=== PATIENT | female | born 1980 | race Caucasian/White ===

== ENCOUNTER → 2019-09-30 16:50 | Outpatient (CLI) | payer OTHER, SELFPAY ==
--- NOTE | ~2019-09-30 | XR_ITS ---
EXAMINATION: XR tibia fibula RT 2V INDICATION: Right leg pain TECHNIQUE: Two views of the right tibia and fibula are obtained. COMPARISON: 09/04/2013 FINDINGS: There is no fracture, dislocation, or subluxation. The bones and joint spaces are normal. T here is mild medial soft tissue swelling adjacent to the distal tibia. IMPRESSION: 1. No acute osseous abnormality. Reviewed, dictated and finalized at location A.
== END ==
PROVIDERS: PCP Family Medicine; Visit Provider Nurse Practitioner Family
DX: M79.606 Pain in leg, unspecified (principal)
CPT/HCPCS: 73590

== ENCOUNTER 2019-10-06 11:10 | Outpatient (CLI) | payer OTHER, SELFPAY ==
--- NOTE | ~2019-10-06 | US_ITS ---
EXAMINATION: US venous doppler LE RT EXAM DATE: 10/06/2019 11:44 INDICATION: Right leg pain, contusion. Hit with softball 2 weeks ago. TECHNIQUE: Multiple grayscale, color flow and Doppler images of the right lower extremity deep venous system were obtained and reviewed. There is no prior study for comparison. FINDINGS: The right common femoral, femoral and profunda veins demonstrate normal color flow, respira tory variation, augmentation and compressibility. Compressibility, color flow confirmed within the r ight popliteal, posterior tibial, peroneal, and greater saphenous veins. Mild heterogeneity, with small amount of uncontained appearing fluid in the area of concern, likely s mall hematoma seroma. IMPRESSION: 1. No right lower extremity deep venous thrombosis. 2. Small hematoma seroma. Reviewed, dictated and finalized at location A.
== END 2019-10-06 11:11 | disposition home or self-care (01) ==
LOC: ANHIMG 11:11
PROVIDERS: PCP Family Medicine; Visit Provider Nurse Practitioner Family
DX: S80.11XA Contusion of right lower leg, initial encounter (principal); X58.XXXA Exposure to other specified factors, initial encounter; R60.9 Edema, unspecified
CPT/HCPCS: 93971

== ENCOUNTER 2019-11-19 11:13 | Outpatient (CLI) | payer OTHER, SELFPAY ==
--- NOTE | ~2019-11-19 | XR_ITS ---
XR tibia fibula RT 2V DATE: 11/19/2019 11:44 INDICATION: Lower leg pain. Distal medial lower leg wound. TECHNIQUE: AP and lateral views COMPARISON: None FINDINGS: Normal alignment at the knee and ankle joints. Plantar calcaneal enthesopathy. No fracture, dislocation, periosteal reaction or bone destruction of the tibia or fibula is detected. IMPRESSION: No significant abnormality of the tibia or fibula Plantar calcaneal enthesopathy Reviewed, dictated and finalized at location A.
[2019-11-19 12:14] LABS: Hematocrit 41.8 % (37.0-47.0); Hemoglobin 13.1 g/dL (12.0-15.0); Mean Corpuscular HGB Conc 31.3 g/dl (32-36); Mean Corpuscular Hemoglobin 27.5 pg (26-34); Mean Corpuscular Volume 87.8 fl (80-100); Mean Platelet Volume 10.7 fl (7.4-10.4); Platelet Count Result 213 k/mm3 (150-375); Red Blood Count 4.76 M/mm3 (4.2-5.4); Red Cell Distribution Width 14.4 % (11.5-14.5)
[2019-11-19 12:26] LABS: Anion Gap 6 mmol/L (8-16); Blood Urea Nitrogen 11 mg/dL (7-17); Calcium 8.7 mg/dL (8.4-10.2); Carbon Dioxide 26 mmol/L (22-30); Chloride 105 mmol/L (98-107); Estimated Glomerular Filt Rate > 60; Glucose 100 mg/dL (65-105); Potassium 4.2 mmol/L (3.4-5.0); Sodium 137 mmol/L (137-145)
== END 2019-11-19 11:14 | disposition home or self-care (01) ==
LOC: ANHIMG 11:17
PROVIDERS: PCP Family Medicine; Visit Provider Nurse Practitioner Family
DX: L03.90 Cellulitis, unspecified (principal); L98.499 Non-pressure chronic ulcer of skin of other sites with unspecified severity; M79.669 Pain in unspecified lower leg; M77.31 Calcaneal spur, right foot
CPT/HCPCS: 36415; 73590; 80048; 85027

== ENCOUNTER 2019-12-25 15:29 | Outpatient (CLI) | payer OTHER, SELFPAY ==
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
[2020-01-07 19:39] VITALS: BMI 56.6
== END 2019-12-25 15:30 | disposition home or self-care (01) ==
LOC: ANHCSM 15:30
PROVIDERS: PCP Family Medicine; Visit Provider Family Medicine
DX: G47.10 Hypersomnia, unspecified (principal)
CPT/HCPCS: 95800

== ENCOUNTER 2020-02-08 08:20 | Outpatient (CLI) | payer OTHER, SELFPAY ==
--- NOTE | ~2020-02-08 | US_ITS ---
EXAMINATION: US arterial ankle brachial ind DATE: 02/08/2020 09:40 INDICATION: Unspecified open wound, right lower leg, sequela. TECHNIQUE: Segmental pressures and plethysmographic and Doppler waveforms of the brachial and lower e xtremity arteries were obtained. COMPARISON: None. FINDINGS: Right brachial artery pressure was 146/87. Left brachial artery pressure was 136/96. These values are concordant (normal difference <= 30 mmHg). The right ankle-brachial index (JUAN MIGUEL) is 1.12 (normal >= 0.9-1.0). The right great toe-brachial index (TBI) is 1.04 (normal >= 0.65). Arterial Doppler waveforms are at least biphasic at the ankle. The left JUAN MIGUEL is 1.10. The left TBI is 1.19. Arterial Doppler waveforms are at least biphasic at the a nkle. IMPRESSION: 1. No significant arterial occlusive disease. Reviewed, dictated and finalized at location A. 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
== END 2020-02-08 08:21 | disposition home or self-care (01) ==
LOC: ANHIMG 08:25
PROVIDERS: PCP Family Medicine; Visit Provider Nurse Practitioner Family
DX: S81.801A Unspecified open wound, right lower leg, initial encounter (principal); X58.XXXA Exposure to other specified factors, initial encounter; L97.911 Non-pressure chronic ulcer of unspecified part of right lower leg limited to breakdown of skin; L98.499 Non-pressure chronic ulcer of skin of other sites with unspecified severity
CPT/HCPCS: 93922

== ENCOUNTER 2020-02-23 02:24 | Outpatient (CLI) | payer OTHER, SELFPAY ==
[2020-02-23 22:42] LABS: SARS-CoV-2 RNA PCR Negative
== END 2020-02-23 02:25 | disposition home or self-care (01) ==
LOC: ANHCOVIDDT 02:25
PROVIDERS: PCP Family Medicine; Visit Provider Internal Medicine Critical Care Medicine
DX: R68.89 Other general symptoms and signs (principal); Z20.828 Contact with and (suspected) exposure to other viral communicable diseases
CPT/HCPCS: 87635; C9803; U0003

== ENCOUNTER 2020-02-24 07:42 | Outpatient (RCR) | payer OTHER, SELFPAY ==
[2019-11-26 09:00] VITALS: BMI 124.9
== END 2020-02-24 23:59 | disposition home or self-care (01) ==
LOC: ANHWOC 07:42
PROVIDERS: PCP Family Medicine; Visit Provider Nurse Practitioner Family
DX: L98.499 Non-pressure chronic ulcer of skin of other sites with unspecified severity (principal)
CPT/HCPCS: 99212; 99213; A9270; G0463

== ENCOUNTER 2020-02-25 08:28 | Outpatient (CLI) | payer OTHER, SELFPAY ==
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
[2020-03-21 14:29] VITALS: BMI 56.6
--- NOTE | 2020-03-21 14:29 | WPDSLEEPSTUD ---
Sleep Study Date of Study: 02/26/20 Ordering Provider: Taylor Corral MD Interpreting Physician: Dianna Sandoval MD Sleep Study Type: Multiple Sleep Latency Test Height: 1.63 m Weight: 149.685 kg Body Mass Index: 56.6 Neck Circumference: 45.72 cm [place]: 14 Reason for Sleep Study Excessive daytime sleepiness Sleep History This patient had a negative home sleep test in Oct and a normal nocturnal polysomnogram the night before this MSLT. She had 405 minutes of sleep which meets the minimum criteria for 6 hours of sleep prior to an MSLT. 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 Migraine Obesity Trigeminal neuralgia Vaginal delivery Surgical History Surgical History Status post tonsillectomy Family History Family History Grandparent Family history of endocrine disorder Family history of malignant neoplasm of breast Family history of coronary artery disease Diabetes mellitus Hypertension Cerebrovascular accident Father Hypertension Family history of coronary artery disease Mother Family history of lung cancer Social History Social History Smoking status: Never smoker Second hand tobacco smoke exposure: No Alcohol intake: current Gender identity (if verbalized by the patient): Female Medications Home Medications Medication Instructions Recorded Confirmed Type alprazolam 0.25 mg tablet 0.25 mg PO TID #90 tablet 02/02/19 03/09/20 Rx albuterol sulfate 90 mcg/actuation 1 inhalation INHALATION Q4H 02/04/19 03/09/20 History aerosol inhaler baclofen 20 mg tablet 20 mg PO DAILY 02/04/19 03/09/20 History gabapentin 800 mg tablet 800 mg PO TID 02/04/19 03/09/20 History duloxetine 30 mg capsule,delayed 90 mg PO DAILY cap 02/09/19 03/09/20 History release cholecalciferol (vitamin D3) 125 5,000 unit PO DAILY #30 cap 02/12/19 03/09/20 Rx mcg (5,000 unit) capsule topiramate 25 mg tablet 25 mg PO TID tablet 04/01/19 03/09/20 History apixaban 5 mg tablet 5 mg PO BID #60 tablet 05/04/19 03/09/20 Rx mupirocin 2 % topical ointment 1 applic TOPICAL TID #30 gm 11/09/19 03/09/20 Rx naltrexone 8 mg-bupropion 90 mg 2 tablet PO BID #120 tablet 03/28/20 Rx tablet,extended release Sleep Procedure This test was performed using the [employer] multiple channel system including EOG, EEG, submental EMG, EKG, and video monitoring was also performed. The study was scored using [facility] guidelines. Sleep Architecture 5 naps were given. Nap 1 start time 6:41 a.m. Time in bed: 19 min 34 seconds. Sleep onset at 4 min 10 seconds. No REM occurred. Nap 2 start time: 8:42 a.m. Time in bed: 19 min 12 seconds. Sleep onset 3 min 42 seconds. No REM occurred. Nap 3 onset 10:43 a.m. Time in bed: 17 min 50 seconds. Sleep onset 2 min 24 seconds. No REM occurred. Nap 4 onset 12:43 a.m. Time in bed 19 min 23 seconds. Sleep onset 3 min 56 seconds. No REM occurred. Nap 5 onset 2:45 p.m. Time in bed: 26 min 33 seconds. Sleep onset 10 min 58 seconds. No REM occurred. The patient reported sleeping on naps 2, 3 and 4. She reported dreaming on naps 2 and 4. Respiratory Analysis NA Arousals NA Periodic Limb Movements NA Oximetry Data NA Snoring Profile NA Cardiac Profile NA EEG Profile NA Assessment and Plan Assessment and Plan (1) Hypersomnolence: Onset Date: ~12/2019 Code(s): G47.10 - Hypersomnia, unspecified Status: Acute Assessment and Plan: This Multiple Sleep Latency Test on Feb 26, 2020 shows a short sleep latency of 5 minutes and 2 seconds. There were no REM onset naps. This study does not support a diagnosis of narcolepsy due to the absence of REM onset n
[2020-04-11 10:38] VITALS: BMI 56.6
== END 2020-02-25 08:29 | disposition home or self-care (01) ==
LOC: ANHCSM 08:33
PROVIDERS: PCP Family Medicine; Visit Provider Family Medicine
DX: G47.10 Hypersomnia, unspecified (principal); G47.00 Insomnia, unspecified
CPT/HCPCS: 95805; 95810

== ENCOUNTER 2020-03-09 10:05 | Outpatient (CLI) | payer OTHER, SELFPAY ==
[2020-03-09 11:00] LABS: Basophils Absolute Auto 0.1 K/mm3 (0.0-0.1); Basophils Percent Auto 0.9 % (0.2-1.2); Eosinophils Absolute Auto 0.1 K/mm3 (0-0.3); Eosinophils Percent Auto 1.7 % (0-4.4); Hematocrit 45.1 % (37.0-47.0); Hemoglobin 13.7 g/dL (12.0-15.0); Immature Granulocyte Absolute 0.01 K/mm3 (0.00-0.031); Immature Granulocyte Percent A 0.1 % (0-0.5); Lymphocytes Absolute Auto 1.97 K/mm3 (0.9-3.2); Lymphocytes Percent Auto 28.1 % (18.3-44.2); Mean Corpuscular HGB Conc 30.4 g/dl (32-36); Mean Corpuscular Hemoglobin 26.9 pg (26-34); Mean Corpuscular Volume 88.6 fl (80-100); Mean Platelet Volume 10.2 fl (7.4-10.4); Monocytes Absolute Auto 0.4 K/mm3 (0.1-0.6); Monocytes Percent Auto 5.6 % (2.6-8.5); Neutrophils Absolute Auto 4.5 K/mm3 (1.3-6.7); Neutrophils Percent Auto 63.6 % (45.5-73.1); Platelet Count Result 207 k/mm3 (150-375); Red Blood Count 5.09 M/mm3 (4.2-5.4)
[2020-03-09 11:49] LABS: Vitamin D 25 Hydroxy 30.4 ng/mL
== END 2020-03-09 10:06 | disposition home or self-care (01) ==
PROVIDERS: PCP Family Medicine; Visit Provider Nurse Practitioner Family
DX: E55.9 Vitamin D deficiency, unspecified (principal); R53.83 Other fatigue
CPT/HCPCS: 36415; 82306; 84443; 85025; 99212; A9270; G0463

== ENCOUNTER 2020-04-21 12:39 | Outpatient (CLI) | payer OTHER, SELFPAY ==
[2020-04-21 13:21] LABS: Alveolar/Arterial O2 Gradient 17.3 mmHg; Base Excess ABG -0.4 mEq/l (+/-2.0); Fractional Inspired Oxygen 21 %; HCO3 ABG 23.7 mEq/l (22.0-26.0); Oxygen Content ABG 18.3 %vol (16.0-22.0); Oxygen Saturation ABG 96.9 % (95.0-100.0); Oxyhemoglobin 95.6 % THb (90.0-100.0); PCO2 ABG 37.1 mmHg (35.0-45.0); PO2 FiO2 Ratio Arterial Blood 4.19 %; Total Hemoglobin 13.6 g/dL (12.0-18.0); pH ABG 7.423 (7.350-7.450)
[2020-04-21 13:22] LABS: Device ROOM AIR; Modified Allen's Test Pass
== END 2020-04-21 12:40 | disposition home or self-care (01) ==
PROVIDERS: Family Provider Family Medicine; PCP Family Medicine; Visit Provider Physician Assistant Medical
DX: G47.10 Hypersomnia, unspecified (principal); E66.01 Morbid (severe) obesity due to excess calories; Z68.43 Body mass index [BMI] 50.0-59.9, adult
CPT/HCPCS: 36600; 82805; 99212; G0463

== ENCOUNTER 2020-05-18 09:58 | Outpatient (RCR) | payer OTHER, SELFPAY ==
[2020-02-25 00:04] VITALS: BMI 124.9
== END 2020-06-07 23:59 | disposition home or self-care (01) ==
LOC: ANHWOC 09:58
PROVIDERS: PCP Family Medicine; Visit Provider Nurse Practitioner Family
DX: L98.499 Non-pressure chronic ulcer of skin of other sites with unspecified severity (principal)
CPT/HCPCS: 99212; A9270; G0463

== ENCOUNTER 2021-02-16 07:30 | Outpatient (RCR) | payer OTHER, SELFPAY ==
[2021-02-16 07:35] VITALS: BP 128/80; PULSE 80; RESP 20; TEMP 36.2; O2SAT 100
[2021-02-16] MEDS: ACETAMINOPHEN 325 MG TABLET 650 MG PO (07:38)
[2021-02-16] MEDS: FAMOTIDINE 20 MG TABLET PO (07:38)
[2021-02-16] MEDS: diphenhydrAMINE HCl CAP 25 MG CAPSULE PO (07:38)
[2021-02-16 09:11] VITALS: BP 111/85
--- NOTE | 2021-02-17 08:43 | PC.NURSE ---
Tried calling Ms Chavira but had to leave a message for her to call us back.
== END 2021-02-16 17:00 ==
LOC: AMCINF 07:30
PROVIDERS: PCP Family Medicine; Visit Provider Internal Medicine Hematology & Oncology
DX: U07.1 COVID-19 (principal); E11.9 Type 2 diabetes mellitus without complications; I10 Essential (primary) hypertension; J44.9 Chronic obstructive pulmonary disease, unspecified
CPT/HCPCS: A9270; M0245; Q0245

== ENCOUNTER → 2021-05-18 16:07 | Outpatient (CLI) | payer OTHER, SELFPAY ==
--- NOTE | ~2021-05-18 | XR_ITS ---
EXAMINATION: XR chest 2V EXAM DATE: 05/18/2021 16:26 INDICATION: R93.89 - Abnormal findings on diagnostic imaging of other... Left-sided chest pain with i nspiration. TECHNIQUE: Frontal and lateral projections of the chest obtained and reviewed. Comparison is made to prior examination from 03/09/2019. FINDINGS: The lungs are clear. There are no pleural effusions. The cardiomediastinal silhouette is within normal limits. There is no pneumothorax suspected. The bones and soft tissues are unremarkab le. IMPRESSION: Normal chest x-ray exam. Reviewed, dictated and finalized at location A. GOUGER IMPRESSION: Normal chest x-ray exam.
== END ==
PROVIDERS: PCP Family Medicine; Visit Provider Nurse Practitioner Family
DX: R93.89 Abnormal findings on diagnostic imaging of other specified body structures (principal)
CPT/HCPCS: 71046

== ENCOUNTER → 2021-07-31 17:21 | Outpatient (CLI) | payer OTHER, SELFPAY ==
--- NOTE | ~2021-07-31 | XR_ITS ---
EXAM: XR hand RT 2V, XR wrist RT w scaphoid DATE: 07/31/2021 17:52 (accession [id number]), 07/31/2021 17:53 (accession [id number]) HISTORY: M25.539 - Pain in unspecified wrist . COMPARISON: None available. FINDINGS: Normal mineralization. No fracture or dislocation. No lytic or blastic lesion. Joint space s are maintained. No erosion or periosteal change. Soft tissues within normal limits. IMPRESSION: Normal right wrist and hand radiograph findings. Reviewed, dictated and finalized at location K. IMPRESSION: Normal right wrist and hand radiograph findings.
== END ==
PROVIDERS: PCP Family Medicine; Visit Provider Nurse Practitioner Family
DX: M25.539 Pain in unspecified wrist (principal)
CPT/HCPCS: 73110; 73120

== ENCOUNTER 2022-01-26 13:38 | Emergency (ER) | payer OTHER, SELFPAY ==
[2022-01-26 13:50] VITALS: BP 131/81; PULSE 97; RESP 20; TEMP 36.4; O2SAT 100
--- NOTE | 2022-01-26 14:45 | ED.URI ---
HPI - URI/Sore Throat General Chief Complaint: Upper Respiratory Infection Stated Complaint: Cough,Congestion,Wheezing Time Seen by Provider: 01/26/22 14:50 Source: patient and RN notes reviewed Mode of arrival: ambulatory Limitations: no limitations History of Present Illness HPI Narrative: 41-year-old female presenting for complaint of cough and chest congestion with wheezing worsening for 5 days. Patient also reports frequent diarrhea over last few days. She is taking Imodium with minimal relief. She denies associated abdominal pain, nausea, vomiting. Denies chest pain, heart racing, sob. Taking otc meds without relief. Endorses sick contacts, dtr positive for flu this week. MD elicited complaint: cough Related Data Home Medications Medication Instructions Recorded Confirmed baclofen 20 mg tablet 20 mg PO TID 02/16/21 05/18/21 duloxetine 30 mg capsule,delayed 30 mg PO DAILY 02/16/21 05/18/21 release duloxetine 60 mg capsule,delayed 60 mg PO DAILY 02/16/21 05/18/21 release erenumab-aooe 140 mg/mL 140 mg subcut MONTHLY 02/16/21 05/18/21 subcutaneous auto-injector (Aimovig Autoinjector) gabapentin 100 mg tablet 100 mg PO TID 02/16/21 05/18/21 gabapentin 800 mg tablet 800 mg PO TID 02/16/21 05/18/21 topiramate 100 mg tablet 100 mg PO HS 02/16/21 05/18/21 topiramate 25 mg tablet 25 mg PO DAILY 02/16/21 05/18/21 Allergies Allergy/AdvReac Type Severity Reaction Status Date / Time gatifloxacin Allergy Mild Unknown Verified 05/18/21 08:55 carbamazepine Allergy Unknown Unknown Verified 05/18/21 08:55 hydroxychloroquine Allergy Unknown Unknown Verified 05/18/21 08:55 Review of Systems Review of Systems: ROS per HPI [facility] Past Medical History Medical History Diabetes Headache History of deep venous thrombosis 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 Migraine Obesity Trigeminal neuralgia Vaginal delivery Surgical History Surgical History Status post tonsillectomy Family History Family History Grandparent Family history of endocrine disorder Family history of malignant neoplasm of breast Family history of coronary artery disease Diabetes mellitus Hypertension Cerebrovascular accident Father Hypertension Family history of coronary artery disease Mother Family history of lung cancer Sibling COVID-19 Social History Social History Second hand tobacco smoke exposure: No Alcohol intake: current Substance use: never Substance use type: does not use 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 Gender identity (if verbalized by the patient): Female Spiritual care concerns: No Exam Narrative: GENERAL: Ill-appearing, nontoxic EYES: PERRLA, conjunctivae clear ENT: Mucous membranes moist. sinus congestion. NECK: Supple. No lymphadenopathy CHEST: Lungs coarse with wheezing No respiratory distress, speaks in full sentences. HEART: Regular rate and rhythm. No murmur heard. SKIN: Warm, dry, no rash. NEURO: Alert and oriented x3. PSYCH: Normal mood and affect Course Course Emergency Course: Patient is aware of diagnosis, understands and agrees to treatment plan. Anticipatory guidance given. Patient agrees to follow-up as directed and is aware of reasons to seek care at the emergency department. Portions of this record may have been created with voice recognition software Level of Care: Express Care Visit Vital Signs Vital signs: Vital Signs Temperature 97.5 F L 01/26/22 13:50 Pulse Rate 97 01/26/22 13:50 Respiratory Rate 20 01/26/22 13:50 Blood Pressure 131/81 01/26/22 13:50 Pulse Oximetry 100 01/26/22 13:50 Oxygen Delivery Room Air 01/26/22 13:50 Temperature 97.5 F L 01/26/22 13:50 Pulse Rate 97
== END 2022-01-26 15:03 | disposition home or self-care (01) ==
PROVIDERS: Emergency Provider Nurse Practitioner Family; PCP Family Medicine
DX: J40 Bronchitis, not specified as acute or chronic (principal); E11.9 Type 2 diabetes mellitus without complications; Z86.718 Personal history of other venous thrombosis and embolism; E66.9 Obesity, unspecified; Z68.43 Body mass index [BMI] 50.0-59.9, adult; Z20.822 Contact with and (suspected) exposure to COVID-19
CPT/HCPCS: 87426; 87804; 99213; C9803; G0463

== ENCOUNTER 2022-01-31 15:11 | Outpatient (CLI) | payer OTHER, SELFPAY ==
--- NOTE | ~2022-01-31 | XR_ITS ---
EXAMINATION: XR chest 2V 01/31/2022 15:31 INDICATION: Cough PROCEDURE: 2 view chest COMPARISON: Comparison to multiple prior studies sequentially, with oldest reviewed study dated 12/09. FINDINGS: The lungs are clear. The cardiomediastinal silhouette is within normal limits. There are no pleural effusions. There is no pneumothorax suspected. IMPRESSION: 1: NO ACUTE CARDIOPULMONARY DISEASE. Reviewed, dictated and finalized at location B. RNAL CONTROLS CONSULTANT
--- NOTE | ~2022-01-31 | US_ITS ---
EXAMINATION:US venous doppler LE BI INDICATION:Right lower extremity pain TECHNIQUE: Multiple grayscale, color flow and Doppler images of the right and left lower extremity de ep venous systems were obtained and reviewed. COMPARISON:No prior studies for comparison. FINDINGS: The common femoral, superficial femoral and popliteal veins demonstrate normal respiratory variation, augmentation and compressibility. Color flow is also seen within the posterior tibial, pe roneal, greater saphenous and profunda veins. IMPRESSION: 1: No lower extremity deep venous thrombosis. Reviewed, dictated and finalized at location B. 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
[2022-01-31 16:18] LABS: Hematocrit 44.4 % (37.0-47.0); Hemoglobin 13.9 g/dL (12.0-15.0); Mean Corpuscular HGB Conc 31.3 g/dl (32-36); Mean Corpuscular Hemoglobin 27.9 pg (26-34); Mean Platelet Volume 10.2 fl (7.4-10.4); Platelet Count Result 251 k/mm3 (150-375); Red Blood Count 4.99 M/mm3 (4.2-5.4); Red Cell Distribution Width 14.4 % (11.5-14.5); White Blood Count 10.8 K/mm3 (4.5-10.0)
[2022-01-31 17:01] LABS: Alanine Aminotransferase 30 U/L (6-35); Albumin Level 4.1 g/dL (3.5-5.1); Alkaline Phosphatase 74 U/L (38-126); Anion Gap 9 mmol/L (8-16); Aspartate Amino Transferase 34 U/L (14-36); Bilirubin,Total 0.2 mg/dL (0.2-1.3); Blood Urea Nitrogen 11 mg/dL (7-17); Calcium 8.8 mg/dL (8.4-10.2); Carbon Dioxide 23 mmol/L (22-30); Chloride 107 mmol/L (98-107); Estimated Glomerular Filt Rate > 60; Glucose 97 mg/dL (65-110); Magnesium 2.1 mg/dL (1.6-2.3); Potassium 4.4 mmol/L (3.4-5.0); Sodium 139 mmol/L (137-145)
== END 2022-01-31 15:12 | disposition home or self-care (01) ==
PROVIDERS: PCP Family Medicine; Visit Provider Nurse Practitioner Family
DX: M79.661 Pain in right lower leg (principal); I10 Essential (primary) hypertension; F41.9 Anxiety disorder, unspecified; F32.9 Major depressive disorder, single episode, unspecified; J40 Bronchitis, not specified as acute or chronic; R05.9 Cough, unspecified
CPT/HCPCS: 36415; 71046; 80053; 82607; 83735; 85027; 85380; 93970

== ENCOUNTER 2022-03-05 12:22 | Outpatient (CLI) | payer OTHER, SELFPAY ==
[2022-03-05 13:03] LABS: Basophils Percent Auto 0.3 % (0.2-1.2); Eosinophils Absolute Auto 0.1 K/mm3 (0-0.3); Eosinophils Percent Auto 0.7 % (0-4.4); Hematocrit 44.1 % (37.0-47.0); Hemoglobin 13.4 g/dL (12.0-15.0); Immature Granulocyte Absolute 0.04 K/mm3 (0.00-0.031); Immature Granulocyte Percent A 0.4 % (0-0.5); Lymphocytes Absolute Auto 2.02 K/mm3 (0.9-3.2); Lymphocytes Percent Auto 17.8 % (18.3-44.2); Mean Corpuscular HGB Conc 30.4 g/dl (32-36); Mean Corpuscular Hemoglobin 27.9 pg (26-34); Mean Corpuscular Volume 91.7 fl (80-100); Mean Platelet Volume 10.4 fl (7.4-10.4); Monocytes Absolute Auto 0.7 K/mm3 (0.1-0.6); Monocytes Percent Auto 6.3 % (2.6-8.5); Neutrophils Absolute Auto 8.5 K/mm3 (1.3-6.7); Neutrophils Percent Auto 74.5 % (45.5-73.1); Platelet Count Result 255 k/mm3 (150-375); Red Blood Count 4.81 M/mm3 (4.2-5.4); Red Cell Distribution Width 15.4 % (11.5-14.5); White Blood Count 11.4 K/mm3 (4.5-10.0)
[2022-03-05 13:09] LABS: Alanine Aminotransferase 21 U/L (6-35); Albumin Level 3.6 g/dL (3.5-5.1); Alkaline Phosphatase 79 U/L (38-126); Anion Gap 4 mmol/L (8-16); Aspartate Amino Transferase 23 U/L (14-36); Bilirubin,Total 0.4 mg/dL (0.2-1.3); Blood Urea Nitrogen 11 mg/dL (7-17); Calcium 8.3 mg/dL (8.4-10.2); Carbon Dioxide 26 mmol/L (22-30); Chloride 107 mmol/L (98-107); Estimated Glomerular Filt Rate > 60; Glucose 93 mg/dL (65-110); Sodium 137 mmol/L (137-145)
== END 2022-03-05 12:23 | disposition home or self-care (01) ==
LOC: ANHLAB 12:25
PROVIDERS: PCP Family Medicine; Visit Provider Nurse Practitioner Family
DX: R19.7 Diarrhea, unspecified (principal)
CPT/HCPCS: 36415; 80053; 85025

== ENCOUNTER 2022-03-06 09:33 | Outpatient (CLI) | payer OTHER, SELFPAY | END 2022-03-06 09:34 | disposition home or self-care (01) | PROVIDERS: PCP Family Medicine; Visit Provider Nurse Practitioner Family | DX: R19.7 Diarrhea, unspecified (principal) | CPT/HCPCS: 87177; 87209 ==

== ENCOUNTER 2022-03-15 11:49 | Outpatient (CLI) | payer OTHER, SELFPAY ==
[2022-03-15 13:13] LABS: Toxigenic C. Diff NEGATIVE (NEGATIVE)
== END 2022-03-15 11:50 | disposition home or self-care (01) ==
PROVIDERS: PCP Family Medicine; Visit Provider Nurse Practitioner Family
DX: R19.7 Diarrhea, unspecified (principal)
CPT/HCPCS: 87045; 87427; 87493

== ENCOUNTER 2022-03-16 11:34 | Outpatient (CLI) | payer OTHER, SELFPAY ==
--- NOTE | ~2022-03-16 | CT_ITS ---
CT Abdomen and Pelvis with contrast. History: Abdominal pain. Spiral CT of the abdomen and pelvis was performed after the administration of intravenous contrast. 1 00 cc of Omnipaque 350 was administered intravenously without complication. Dose reduction technique was used on this scan by utilizing automated exposure control and iterative reconstruction technique. The dose-length product (DLP) was 1510.40 mGy-cm. COMPARISON: 04/04/2006 Findings: Scans through the lung bases demonstrate mild atelectatic change. The liver, spleen, pancreas, gallbladder, adrenals and kidneys are within normal limits. No evidence of aortic aneurysm. No lymphadenopathy is seen. There is no evidence of bowel obstruction. Suggestion of mild diffuse large bowel wall thickening, es pecially of the transverse, descending, and sigmoid colon. No abscess or free air. Images through the pelvis were performed. Urinary bladder unremarkable. IUD in place. No adnexal mass seen. No ascites is seen. Impression: Possible mild infectious/inflammatory colitis, particularly involving the transverse colon, descendin g colon, and sigmoid colon. Correlate clinically. IUD in place. Reviewed, dictated and finalized at location M. LITIES CUSTODIAN Impression: Possible mild infectious/inflammatory colitis, particularly involving the trans verse colon, descending colon, and sigmoid colon. Correlate clinically. IUD in place.
[2022-03-16 12:41] LABS: Basophils Absolute Auto 0.1 K/mm3 (0.0-0.1); Basophils Percent Auto 0.6 % (0.2-1.2); Eosinophils Absolute Auto 0.2 K/mm3 (0-0.3); Eosinophils Percent Auto 1.5 % (0-4.4); Hematocrit 41.1 % (37.0-47.0); Hemoglobin 12.5 g/dL (12.0-15.0); Immature Granulocyte Absolute 0.05 K/mm3 (0.00-0.031); Immature Granulocyte Percent A 0.5 % (0-0.5); Lymphocytes Absolute Auto 1.97 K/mm3 (0.9-3.2); Lymphocytes Percent Auto 19.1 % (18.3-44.2); Mean Corpuscular HGB Conc 30.4 g/dl (32-36); Mean Corpuscular Hemoglobin 27.5 pg (26-34); Mean Corpuscular Volume 90.3 fl (80-100); Monocytes Absolute Auto 0.6 K/mm3 (0.1-0.6); Neutrophils Absolute Auto 7.5 K/mm3 (1.3-6.7); Neutrophils Percent Auto 72.3 % (45.5-73.1); Platelet Count Result 270 k/mm3 (150-375); Red Blood Count 4.55 M/mm3 (4.2-5.4); White Blood Count 10.3 K/mm3 (4.5-10.0)
[2022-03-16 12:50] LABS: Potassium 3.5 mmol/L (3.4-5.0)
[2022-03-16 12:51] LABS: Alanine Aminotransferase 18 U/L (6-35); Albumin Level 3.3 g/dL (3.5-5.1); Alkaline Phosphatase 75 U/L (38-126); Amylase 38 U/L (30-110); Anion Gap 6 mmol/L (8-16); Aspartate Amino Transferase 16 U/L (14-36); Bilirubin,Total 0.2 mg/dL (0.2-1.3); Blood Urea Nitrogen 8 mg/dL (7-17); Carbon Dioxide 26 mmol/L (22-30); Chloride 101 mmol/L (98-107); Estimated Glomerular Filt Rate > 60; Glucose 90 mg/dL (65-110); Lipase 37 U/L (23-300); Sodium 133 mmol/L (137-145)
== END 2022-03-16 11:35 | disposition home or self-care (01) ==
PROVIDERS: PCP Family Medicine; Visit Provider Nurse Practitioner Family
DX: R10.32 Left lower quadrant pain (principal); R19.7 Diarrhea, unspecified; Z97.5 Presence of (intrauterine) contraceptive device
CPT/HCPCS: 36415; 74177; 80053; 82150; 83690; 85025; Q9967

== ENCOUNTER 2022-03-17 10:45 | Inpatient (IN) | payer OTHER, SELFPAY ==
[2022-03-17] VITALS (22 sets, daily range): BP systolic 107–133; BP diastolic 61–84; PULSE 101–134; RESP 12–25; TEMP 35.5–36.7; O2SAT 95–100; BMI 51.9
--- NOTE | ~2022-03-17 | NM_ITS ---
EXAMINATION: NM hepatobiliary wo pharm DATE: 03/23/2022 14:04 INDICATION: Cholelithiasis. Right upper quadrant abdominal pain. COMPARISON: None. TECHNIQUE: 4.5 mCi Tc-99m mebrofenin (Choletec) was administered intravenously. Scintigraphic images of the abdomen were obtained for one hour. At the 1 hour time point, the patient drank 8 oz Ensure, and imaging was continued for 60 minutes. Gallbladder ejection fraction was calculated by the technol ogthelma. FINDINGS: There is normal clearance of radiotracer from the blood pool. There is homogeneous tracer u ptake by the liver. Activity progresses to the bowel and gallbladder. The gallbladder ejection fract ion (GBEF) is 27%. Note that with this technique, normal GBEF >= 33%. IMPRESSION: 1. Minimally decreased compared W ejection fraction which can be seen with gallbladder dysfunction o r chronic cholecystitis in the appropriate clinical setting. Reviewed, dictated and finalized at location A. OR ACCOUNT REPRESENTATIVE IMPRESSION: 1. Minimally decreased compared W ejection fraction which can be seen with gal lbladder dysfunction or chronic cholecystitis in the appropriate clinical setti ng.
--- NOTE | ~2022-03-17 | US_ITS ---
EXAMINATION: US abdomen complete DATE: 03/21/2022 09:19 INDICATION: Abdominal pain. TECHNIQUE: Multiple grayscale and Doppler ultrasound images of the abdomen were obtained. COMPARISON: CT abdomen and pelvis 03/16/2022 FINDINGS: Abdominal aorta is normal in caliber. Inferior vena cava is normal. The visualized portion of the head of the pancreas is normal. The liver is normal without focal lesion. The gallbladder is d istended and contains a gallstone. No gallbladder wall thickening or sonographic Pond sign. The com mon duct is dilated to 9 mm. There is normal flow in main portal vein. The kidneys are normal in size . The spleen is normal in size. IMPRESSION: 1. Cholelithiasis. Gallbladder distention may be secondary to fasting. No gallbladder wall thickening or sonographic Pond sign to suggest acute cholecystitis. 2. Mildly dilated common duct. Reviewed, dictated and finalized at location A. OL COMMUNITY SERVICE OFFICER IMPRESSION: 1. Cholelithiasis. Gallbladder distention may be secondary to fasting. No gallb ladder wall thickening or sonographic Pond sign to suggest acute cholecystiti s. 2. Mildly dilated common duct.
[2022-03-17 11:13] LABS: Basophils Absolute Auto 0.1 K/mm3 (0.0-0.1); Basophils Percent Auto 0.5 % (0.2-1.2); Eosinophils Absolute Auto 0.1 K/mm3 (0-0.3); Eosinophils Percent Auto 0.4 % (0-4.4); Hemoglobin 14.1 g/dL (12.0-15.0); Immature Granulocyte Absolute 0.13 K/mm3 (0.00-0.031); Immature Granulocyte Percent A 0.6 % (0-0.5); Lymphocytes Absolute Auto 1.61 K/mm3 (0.9-3.2); Lymphocytes Percent Auto 7.7 % (18.3-44.2); Mean Corpuscular HGB Conc 30.7 g/dl (32-36); Mean Corpuscular Hemoglobin 27.5 pg (26-34); Mean Corpuscular Volume 89.8 fl (80-100); Monocytes Absolute Auto 1.2 K/mm3 (0.1-0.6); Monocytes Percent Auto 5.9 % (2.6-8.5); Neutrophils Absolute Auto 17.6 K/mm3 (1.3-6.7); Neutrophils Percent Auto 84.9 % (45.5-73.1); Platelet Count Result 345 k/mm3 (150-375); Red Blood Count 5.12 M/mm3 (4.2-5.4); Red Cell Distribution Width 15.2 % (11.5-14.5); White Blood Count 20.8 K/mm3 (4.5-10.0)
[2022-03-17 11:23] LABS: Alanine Aminotransferase 21 U/L (6-35); Albumin Level 3.8 g/dL (3.5-5.1); Alkaline Phosphatase 93 U/L (38-126); Anion Gap 6 mmol/L (8-16); Aspartate Amino Transferase 21 U/L (14-36); Bilirubin,Total 0.3 mg/dL (0.2-1.3); Blood Urea Nitrogen 5 mg/dL (7-17); Calcium 8.5 mg/dL (8.4-10.2); Carbon Dioxide 28 mmol/L (22-30); Chloride 104 mmol/L (98-107); Estimated CRCL calculation 96 ml/min; Estimated Glomerular Filt Rate > 60; Glucose 153 mg/dL (65-110); Lipase 25 U/L (23-300); Potassium 3.7 mmol/L (3.4-5.0); Sodium 138 mmol/L (137-145)
--- NOTE | 2022-03-17 11:31 | ECG_ITS ---
Measurements Intervals [place] Rate: 111 P: 41 [place]: 141 QRS: 40 QRSD: 89 T: 29 QT: 301 QTc: 409 Interpretive Statements SINUS TACHYCARDIA POSSIBLE LEFT ATRIAL ENLARGEMENT MINIMAL Q WAVES- INFERIOR LEADS ABNORMAL ECG NO PREVIOUS ECG AVAILABLE FOR COMPARISON Electronically Signed On 03-17-2022 16:31:41 INTERACTIVE PRODUCER by Natan Huggins D.O.
[2022-03-17] MEDS: LACTATED RINGERS 1,000 ML 999 ML IV CONT ×3 (11:43→13:41)
[2022-03-17 11:55] LABS: Add Urine Microscopic? YES; Appearance Urine Clear (Clear); Bilirubin Urine 1+ (Negative); Blood Urine 2+ (Negative); Color Urine Yellow (Yellow); Glucose Urine UA Negative (Negative); Ketones Urine Trace mg/dL (Negative); Leukocyte Esterase Ur Negative LEU/UL (Negative); Nitrate Urine Negative (Negative); Protein Urine Negative (Negative); Specific Grav Ur 1.025 (1.001-1.035); Urobilinogen Urine 0.2 mg/dL (<2.0); pH Urine 5.5 (5.0-9.0)
[2022-03-17 11:58] LABS: Mucus Urine Few /lpf; Squamous Epithelial Cell Urine Few /hpf (Few)
[2022-03-17 12:03] LABS: Lactic Acid Reflex 1.2 mmol/L (0.7-2.0)
--- NOTE | 2022-03-17 12:12 | ED.ABDPAIN ---
HPI - Abdominal Pain General Chief Complaint: Abdominal Pain <MIRELLA Chambers Last Filed: 03/17/22 16:45> Stated Complaint: stomach pain, diarrhea x 2 weeks (here yesterday) <Leana Chinchilla PA-C - Last Filed: 03/17/22 16:45> Time Seen by Provider: 03/17/22 11:58 <Leana Chinchilla PA-C - Last Filed: 03/17/22 16:45> History of Present Illness HPI narrative: Patient is a 41-year-old female here for evaluation of diarrhea over the past 3 months. Patient states that she has been experiencing this and has been following with her primary care doctor. She has had stool studies that have been negative for C. difficile, ova or parasites, c. jejuni or shiga toxin. She has completed several rounds of antibiotics without improvement of her symptoms. Yesterday she had a CT scan that showed diffuse enteritis. She presents today due to continued and worsening symptoms, states that she had a fever last evening, had about 18 episodes of watery diarrhea, and diffuse abdominal pain. <MIRELLA Chambers Last Filed: 03/17/22 16:45> Related Data Home Medications: Home Medications Medication Instructions Recorded Confirmed baclofen 20 mg tablet 20 mg PO ,,02/16/21 03/17/22 duloxetine 60 mg capsule,delayed 60 mg PO DAILY 02/16/21 03/17/22 release erenumab-aooe 140 mg/mL 140 mg subcut MONTHLY 02/16/21 03/17/22 subcutaneous auto-injector (Aimovig Autoinjector) gabapentin 100 mg tablet 100 mg PO ,,02/16/21 03/17/22 gabapentin 800 mg tablet 800 mg PO ,,02/16/21 03/17/22 topiramate 100 mg tablet 100 mg PO HS 02/16/21 03/17/22 topiramate 25 mg tablet 25 mg PO DAILY 02/16/21 03/17/22 duloxetine 30 mg capsule,delayed 30 mg PO DAILY 02/26/22 03/17/22 release (Cymbalta) <MIRELLA Chambers Last Filed: 03/17/22 16:45> Allergies/Adverse Reactions: Allergies Allergy/AdvReac Type Severity Reaction Status Date / Time carbamazepine AdvReac Mild Itching Verified 03/17/22 15:35 gatifloxacin AdvReac Mild Itching Verified 03/17/22 15:35 hydroxychloroquine AdvReac Mild Itching Verified 03/17/22 15:35 <Leana Chinchilla PA-C - Last Filed: 03/17/22 16:45> Review of Systems Review of Systems: Gen: Reports fevers. Eyes: Denies eye pain or visual change ENT: Denies congestion Respiratory: Denies shortness of breath or cough CV: Denies chest pain or palpitations GI: Reports abdominal pain and diarrhea. 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 Hx of gestational diabetes mellitus, not currently Insulin resistance Migraine Obesity Trigeminal neuralgia Vaginal delivery <Leana Chinchilla PA-C - Last Filed: 03/17/22 16:45> Surgical History Surgical History: Surgical History Status post tonsillectomy <Leana Chinchilla PA-C - Last Filed: 03/17/22 16:45> Family History Family History: Family History Grandparent Family history of endocrine disorder Family history of malignant neoplasm of breast Family history of coronary artery disease Diabetes mellitus Hypertension Cerebrovascular accident Father Hypertension Family history of coronary artery disease Mother Family history of lung cancer Sibling COVID-19 <Leana Chinchilla PA-C - Last Filed: 03/17/22 16:45> Social History Social History: Social History (Updated
[2022-03-17 14:21] LABS: Thyroid Stimulating Hormone 0.237 uIU/mL (0.465-4.680)
--- NOTE | 2022-03-17 14:23 | PM.IMHP ---
H&P: HPI History of Present Illness Date/Time: 03/17/22 14:23 Chief Complaint: Diarrhea Narrative: This is a 41-year-old female patient who stated that she has been having diarrhea since January. The patient stated that she had been on some strong antibiotics 3 months ago. She has been having diarrhea since. She is followed by her primary care doctor. She recently tested negative for C diff ova and parasites. The patient started taking vancomycin and took the stool specimen and 4 days later. The patient stated every time she eats or drinks something it goes right straight through her and she has diarrhea. Yesterday the CT showed diffuse enteritis. The patient came to the emergency room due to complaints of severe abdominal cramping and at least 18 episodes of watery diarrhea. CT scan of the abdomen and pelvis yesterday shows possible mild infectious/inflammatory colitis, particularly involving the transverse colon, descending colon, and sigmoid colon. GI specialist has been consulted recommend Zosyn. White count is 20.8. She is negative for influenza A/B and COVID. The patient was started on lactated Ringer's, Zosyn, and IV Tylenol. The patient is being admitted to observation status on the date of service of 03/17/2022. Review of Systems Review of Systems: See HPI All systems reviewed & are unremarkable except as noted in HPI and below Constitutional: Constitutional: Reports as per HPI and Reports no additional constitutional complaints Eyes: Eyes: Reports as per HPI and Reports no additional eye complaints ENT: Reports system reviewed and no additional complaints, except as documented and Reports Normal hearing present Cardiovascular: Cardiovascular: Reports no additional cardiovascular complaints Respiratory: Respiratory: Reports no additional respiratory complaints and Reports no additional respiratory complaints Gastrointestinal: Gastrointestinal: Reports as per HPI and Reports no additional gastrointestinal complaints Musculoskeletal: Musculoskeletal: Reports no additional musculoskeletal complaints Integumentary/Breasts: Skin/Breast: Reports system reviewed and no additional complaints, except as docu and Reports as per HPI Neurologic: Reports system reviewed and no additional complaints, except as documented, Reports as per HPI and Reports Normal hearing present Psychiatric: Psychiatric: Reports no additional psychiatric complaints and Reports as per HPI Endocrine: Endocrine: Reports no additional endocrine complaints Hematologic/Lymphatic: Hematologic/Lymphatic: Reports no additional hematologic/lymphatic complaints Allergic/Immunologic: Allergic/Immunologic: Reports no additional allergic/immunologic complaints [facility] Past Medical History Medical History (Updated 01/07/23 @ 19:06 by Ruth Ch NP) Anxiety Headache History of deep venous thrombosis 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 Hx of gestational diabetes mellitus, not currently Insulin resistance Migraine Obesity Rheumatoid arthritis Trigeminal neuralgia Vaginal delivery Surgical History Surgical History Status post tonsillectomy Family History Family History Grandparent Family history of endocrine disorder Family history of malignant neoplasm of breast Family history of coronary artery disease Diabetes mellitus Hypertension Cerebrovascular accident Father Hypertension Family history of coronary artery disease Mother Family history of lung cancer Sibling COVID-19 Social History Social History (Updated 03/17/22 @ 18:40 by Ruth Ch NP) Social History: The patient lives with her and has 2 children. 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 Lifelong nonsmoker. She does not use any drugs or alcohol. Code
[2022-03-17 14:42] LABS: Influenza A QL RT-PCR Negative (Negative); Influenza B QL RT-PCR Negative (Negative); SARS-CoV-2 RNA PCR Negative
[2022-03-17] MEDS: LACTATED RINGERS 1,000 ML 150 ML IV CONT (14:50)
--- NOTE | 2022-03-17 15:25 | ADMGEN ---
This patient, Sarah Chavira, was admitted to 3 Med Surg Room 328-01. Patient/family oriented to hospital policies and general routines including ID bracelet, bed and alarms, visiting hours, pain management, procedures, bathroom and other care routines, personal items, smoking policy, room service/diet, and visiting hours. Information on how to activate the Rapid Response Team has been discussed. Patient/Family are encouraged to report perceived risks to care and to ask questions if they do not understand what they are told or what they should do.
[2022-03-17] MEDS: metroNIDAZOLE 500 MG/ISO 100ML 500 MG/100 ML BAG 100 MG IVPB (15:30)
[2022-03-17 16:21] LABS: T4 Thyroxine 8.21 ug/dL (5.53-11.0)
[2022-03-17] MEDS: TOPIRAMATE 100 MG TABLET PO (21:10)
[2022-03-17] MEDS: GABAPENTIN 400 MG CAPSULE 800 MG PO (21:10)
[2022-03-17] MEDS: GABAPENTIN 100 MG CAPSULE PO (21:10)
[2022-03-17] MEDS: DICYCLOMINE HCL INJ 20 MG/2 ML VIAL IM (21:10)
[2022-03-17] MEDS: BACLOFEN 10 MG TABLET 20 MG PO (21:28)
[2022-03-18] MEDS: LOPERAMIDE HCL 2 MG CAPSULE 4 MG PO (01:46)
[2022-03-18 06:00] VITALS: BP 113/69; PULSE 83; RESP 14; TEMP 35.7; O2SAT 100
[2022-03-18 07:02] LABS: Basophils Absolute Auto 0.1 K/mm3 (0.0-0.1); Basophils Percent Auto 0.6 % (0.2-1.2); Eosinophils Absolute Auto 0.3 K/mm3 (0-0.3); Eosinophils Percent Auto 1.9 % (0-4.4); Hemoglobin 11.2 g/dL (12.0-15.0); Immature Granulocyte Absolute 0.08 K/mm3 (0.00-0.031); Immature Granulocyte Percent A 0.6 % (0-0.5); Lymphocytes Absolute Auto 2.22 K/mm3 (0.9-3.2); Lymphocytes Percent Auto 15.8 % (18.3-44.2); Mean Corpuscular HGB Conc 31.1 g/dl (32-36); Mean Corpuscular Hemoglobin 27.1 pg (26-34); Mean Platelet Volume 10.3 fl (7.4-10.4); Monocytes Absolute Auto 0.8 K/mm3 (0.1-0.6); Monocytes Percent Auto 5.9 % (2.6-8.5); Neutrophils Absolute Auto 10.5 K/mm3 (1.3-6.7); Neutrophils Percent Auto 75.2 % (45.5-73.1); Platelet Count Result 263 k/mm3 (150-375); Red Blood Count 4.14 M/mm3 (4.2-5.4); Red Cell Distribution Width 15.1 % (11.5-14.5)
[2022-03-18 07:14] LABS: Lactic Acid Reflex 0.5 mmol/L (0.7-2.0)
[2022-03-18 07:16] LABS: Alanine Aminotransferase 15 U/L (6-35); Albumin Level 2.9 g/dL (3.5-5.1); Alkaline Phosphatase 75 U/L (38-126); Anion Gap 5 mmol/L (8-16); Aspartate Amino Transferase 14 U/L (14-36); Bilirubin,Total 0.3 mg/dL (0.2-1.3); Blood Urea Nitrogen 4 mg/dL (7-17); Calcium 7.8 mg/dL (8.4-10.2); Carbon Dioxide 24 mmol/L (22-30); Chloride 104 mmol/L (98-107); Estimated CRCL calculation 108 ml/min; Estimated Glomerular Filt Rate > 60; Glucose 118 mg/dL (65-110); Magnesium 2.2 mg/dL (1.6-2.3); Potassium 2.9 mmol/L (3.4-5.0); Sodium 133 mmol/L (137-145)
--- NOTE | 2022-03-18 08:02 | WPDGICN ---
Assessment and Plan Assessment and plan (1) Diarrhea: Code(s): R19.7 - Diarrhea, unspecified Status: Acute Assessment and Plan: I suspect that she has inflammatory bowel disease. C difficile colitis remains a possibility, however she did not have risk factors for that. Unfortunately when she was tested she had already started taking vancomycin. (2) Colitis: Code(s): K52.9 - Noninfective gastroenteritis and colitis, unspecified Status: Acute Assessment and Plan: She was scheduled for colonoscopy to be done tomorrow. I discussed with her the prep I told her that even though she has diarrhea will need to give her some bowel prep because of the likelihood of mucoid thick stool in the ascending colon (3) BMI 50.0-59.9, adult: Code(s): Z68.43 - Body mass index [BMI] 50.0-59.9, adult Status: Acute Assessment and Plan: she actually has lost about 15 lb with the present illness GI Consult Note Consult date/time: 03/18/22 08:02 HPI: Sarah Chavira is a 41 year old female who presented to the emergency room yesterday with intractable diarrhea. Since this all began in January. She also developed a sinus infection at that time. She was placed on antibiotics for the upper respiratory infection, but the diarrhea preceded that by at least a week. She had not been traveling. She was not aware of any other friends or family who were ill. She had been using Imodium without success and was also advised to try Pepto-Bismol. She did have stool cultures done a few days ago which were negative. Apparently the laboratory failed to do her C diff toxin. When it was repeated, she had already started taking vancomycin for about 4 days. She has never had gastrointestinal illnesses in the past. She denies seeing blood her stools. She has watery stool throughout the day and even at night whether she eats or not. She however always has more stools after eating and therefore has cut back on eating to the point that she has lost 15 lb now in the last few weeks. 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 Hx of gestational diabetes mellitus, not currently Insulin resistance Migraine Obesity Rheumatoid arthritis Trigeminal neuralgia Vaginal delivery Surgical History Surgical History Status post tonsillectomy Family History Family History Grandparent Family history of endocrine disorder Family history of malignant neoplasm of breast Family history of coronary artery disease Diabetes mellitus Hypertension Cerebrovascular accident Father Hypertension Family history of coronary artery disease Mother Family history of lung cancer Sibling COVID-19 Social History Social History Social History: The patient lives with her and has 2 children. 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 Lifelong nonsmoker. She does not use any drugs or alcohol. Code status full code Smoking status: Never smoker Second hand tobacco smoke exposure: No Alcohol intake: current Drinks per week: 0 Substance use: never Substance use type: does not use Lack of Transportation: No Lack of Food: Never True Current Housing: I Have Housing Concerned About Future Housing: No Difficulty Paying Gas/Electric Bills: No Difficulty Paying for Meds: No Currently Unemployed: No Education: Bachelor's Degree Difficulty w/ Childcare or Family Care: No Additional occupation/education
[2022-03-18] MEDS: GABAPENTIN 100 MG CAPSULE PO ×3 (09:19→22:04)
[2022-03-18] MEDS: TOPIRAMATE 25 MG TABLET PO (09:20)
[2022-03-18] MEDS: DULoxetine HCL 60 MG CAPSULE.DR PO (09:20)
[2022-03-18] MEDS: DULoxetine HCL 30 MG CAPSULE.DR PO (09:20)
[2022-03-18] MEDS: GABAPENTIN 400 MG CAPSULE 800 MG PO ×3 (09:20→22:04)
[2022-03-18] MEDS: BACLOFEN 10 MG TABLET 20 MG PO ×3 (09:24→22:03)
[2022-03-18] MEDS: POTASSIUM CHLORIDE 20 MEQ PACKET (FOR LIQUID) 40 MEQ PO (09:25)
--- NOTE | 2022-03-18 13:49 | P.PNIM_ITS ---
Progress Note: A&P Assessment and Plan (1) Colitis: Code(s): K52.9 - Noninfective gastroenteritis and colitis, unspecified Status: Acute Assessment and Plan: Patient presented with diarrhea since January to the ER on 03/17/2022. * CT show diffuse enteritis possibly infectious or inflammatory. * Patient had been on recent antibiotic use in January. * the patient had been placed on p.o. vancomycin outpatient and had been on it for days when specimens were obtained for C diff. * Those specimens were negative. The patient stop taking the vancomycin then. * Repeat stool cultures at [facility]. * Patient on IV Zosyn * GI has been consulted and appreciate recommendations * Continue with IV fluids * Analgesics for pain control including scheduled Tylenol * White count on 03/17/2022 was 20.8 * Patient's white count is trending down. * Blood cultures are pending. * Tailor antibiotics to results of cultures. * Colonoscopy scheduled for 03/19/2022 * Will check ESR and CRP (2) History of deep venous thrombosis: Code(s): Z86.718 - Personal history of other venous thrombosis and embolism Status: Acute Assessment and Plan: Patient has history of 3 DVTs * the patient stated she has not been taking her apixaban because of the diarrhea. * Restarted patient's apixaban * Advised continuation after discharge (3) Diarrhea: Code(s): R19.7 - Diarrhea, unspecified Status: Acute Assessment and Plan: * will recheck stool cultures again. * Blood cultures are pending. * GI has been consulted. * continue with analgesics and IV fluids. * patient was started on Zosyn * Patient had been on antibiotic therapy with vancomycin when she had given last stool sample that was negative. (4) Rheumatoid arthritis: Code(s): M06.9 - Rheumatoid arthritis, unspecified Status: Acute Assessment and Plan: Continue with current treatment * continue gabapentin Subjective Date/time seen: 03/18/22 13:49 Interval history: This is a very pleasant 41-year-old female patient who stated that she has been having diarrhea since January. Patient states that she has not noticed any blood in her stool or having dark stools. Patient states that diarrhea has progressively gotten worse and that it is even triggered by a water intake. She has had some nausea associated with the diarrhea but a never any vomiting. She use antidiarrheals in the beginning of the diarrhea starting but they have since stopped working and she has stopped taking them. She has significant lower abdominal cramping and urgency when using the bathroom. Has diarrhea between 12 and 13 times a day. She has had fevers but nothing consistent. States that diarrhea had started with a suspected viral illness in January and diarrhea has never resolved itself since then. Patient does have a sister with Crohn's disease. Review of Systems Review of Systems: All systems reviewed & are unremarkable except as noted in HPI and below Exam Narrative: GENERAL: Comfortable, no acute distress, obese HENMT: moist mucous membranes EYES: EOM intact b/l NECK: no lymphadenopathy RESPIRATORY: clear to auscultation CARDIO: RRR GI: soft, tenderness across the lower abdomen, hyperactive bowel sounds in the lower quadrants SKIN: no rashes EXTREMITIES: no edema, redness or tenderness Objective Data Vital Signs Vital Signs: Vital Signs - 24 hr 03/17/22 14:00 03/17/22 14:15 03/17/22 14:30 Temperat
--- NOTE | 2022-03-18 13:49 | PM.IMPN ---
Progress Note: A&P Assessment and Plan (1) Colitis: Code(s): K52.9 - Noninfective gastroenteritis and colitis, unspecified Status: Acute Assessment and Plan: Patient presented with diarrhea since January to the ER on 03/17/2022. CT show diffuse enteritis possibly infectious or inflammatory. Patient had been on recent antibiotic use in January. the patient had been placed on p.o. vancomycin outpatient and had been on it for days when specimens were obtained for C diff. Those specimens were negative. The patient stop taking the vancomycin then. Repeat stool cultures at [place]. Patient on IV Zosyn GI has been consulted and appreciate recommendations Continue with IV fluids Analgesics for pain control including scheduled Tylenol White count on 03/17/2022 was 20.8 Patient's white count is trending down. Blood cultures are pending. Tailor antibiotics to results of cultures. Colonoscopy scheduled for 03/19/2022 Will check ESR and CRP (2) History of deep venous thrombosis: Code(s): Z86.718 - Personal history of other venous thrombosis and embolism Status: Acute Assessment and Plan: Patient has history of 3 DVTs the patient stated she has not been taking her apixaban because of the diarrhea. Restarted patient's apixaban Advised continuation after discharge (3) Diarrhea: Code(s): R19.7 - Diarrhea, unspecified Status: Acute Assessment and Plan: will recheck stool cultures again. Blood cultures are pending. GI has been consulted. continue with analgesics and IV fluids. patient was started on Zosyn Patient had been on antibiotic therapy with vancomycin when she had given last stool sample that was negative. (4) Rheumatoid arthritis: Code(s): M06.9 - Rheumatoid arthritis, unspecified Status: Acute Assessment and Plan: Continue with current treatment continue gabapentin Subjective Date/time seen: 03/18/22 13:49 Interval history: This is a very pleasant 41-year-old female patient who stated that she has been having diarrhea since January. Patient states that she has not noticed any blood in her stool or having dark stools. Patient states that diarrhea has progressively gotten worse and that it is even triggered by a water intake. She has had some nausea associated with the diarrhea but a never any vomiting. She use antidiarrheals in the beginning of the diarrhea starting but they have since stopped working and she has stopped taking them. She has significant lower abdominal cramping and urgency when using the bathroom. Has diarrhea between 12 and 13 times a day. She has had fevers but nothing consistent. States that diarrhea had started with a suspected viral illness in January and diarrhea has never resolved itself since then. Patient does have a sister with Crohn's disease. Review of Systems Review of Systems: All systems reviewed & are unremarkable except as noted in HPI and below Exam Narrative: GENERAL: Comfortable, no acute distress, obese HENMT: moist mucous membranes EYES: EOM intact b/l NECK: no lymphadenopathy RESPIRATORY: clear to auscultation CARDIO: RRR GI: soft, tenderness across the lower abdomen, hyperactive bowel sounds in the lower quadrants SKIN: no rashes EXTREMITIES: no edema, redness or tenderness Objective Data Vital Signs Vital Signs: Vital Signs - 24 hr 03/17/22 14:00 03/17/22 14:15 03/17/22 14:30 Temperature Pulse Rate Respiratory Rate Blood Pressure Pulse Oximetry 95 97 97 Oxygen Delivery 03/17/22 14:45 03/17/22 15:04 03/17/22 20:00 Temperature Pulse Rate 113 H Respiratory Rate 16 Blood Pressure 122/74 Pulse Oximetry 96 98 Oxygen Delivery Room Air 03/17/22 22:00 03/18/22 06:00 Temperature 96 F L 96.2 F L Pulse Rate 101 H 83 Respiratory Rate 18 14 Blood Pressure 119/67 113/69 Pulse Oximetry 100 100 Oxygen Delivery Intake/Output
[2022-03-18] MEDS: HYDROcodone/acetaminophen (*CRX) 10-325 MG TABLET 1 TAB PO (17:36)
[2022-03-18] MEDS: polyethylene glycoL 3350 238 GM BOTTLE PO (17:37)
[2022-03-18 17:38] VITALS: BP 114/90; PULSE 86; RESP 14; TEMP 36.1; O2SAT 100
[2022-03-18] MEDS: ACETAMINOPHEN 325 MG TABLET 650 MG PO (17:45)
[2022-03-18 22:00] VITALS: BP 110/69; PULSE 64; RESP 17; TEMP 35.6; O2SAT 98
[2022-03-18] MEDS: TOPIRAMATE 100 MG TABLET PO (22:04)
[2022-03-19] VITALS (7 sets, daily range): BP systolic 84–116; BP diastolic 49–75; PULSE 63–83; RESP 14–20; TEMP 36–36.8; O2SAT 97–100; BMI 51.9
[2022-03-19] MEDS: ACETAMINOPHEN 325 MG TABLET 650 MG PO ×2 (00:23→05:08)
[2022-03-19 06:40] LABS: Basophils Absolute Auto 0.1 K/mm3 (0.0-0.1); Eosinophils Absolute Auto 0.4 K/mm3 (0-0.3); Eosinophils Percent Auto 5.6 % (0-4.4); Hematocrit 37.5 % (37.0-47.0); Hemoglobin 11.6 g/dL (12.0-15.0); Immature Granulocyte Absolute 0.05 K/mm3 (0.00-0.031); Immature Granulocyte Percent A 0.7 % (0-0.5); Lymphocytes Absolute Auto 1.66 K/mm3 (0.9-3.2); Lymphocytes Percent Auto 22.6 % (18.3-44.2); Mean Corpuscular HGB Conc 30.9 g/dl (32-36); Mean Corpuscular Hemoglobin 27.2 pg (26-34); Mean Platelet Volume 10.2 fl (7.4-10.4); Monocytes Absolute Auto 0.5 K/mm3 (0.1-0.6); Monocytes Percent Auto 6.5 % (2.6-8.5); Neutrophils Absolute Auto 4.7 K/mm3 (1.3-6.7); Neutrophils Percent Auto 63.6 % (45.5-73.1); Platelet Count Result 294 k/mm3 (150-375); Red Blood Count 4.26 M/mm3 (4.2-5.4); Red Cell Distribution Width 15.1 % (11.5-14.5); White Blood Count 7.3 K/mm3 (4.5-10.0)
[2022-03-19 06:46] LABS: Alanine Aminotransferase 15 U/L (6-35); Albumin Level 3.1 g/dL (3.5-5.1); Alkaline Phosphatase 77 U/L (38-126); Anion Gap 6 mmol/L (8-16); Aspartate Amino Transferase 14 U/L (14-36); Bilirubin,Total 0.3 mg/dL (0.2-1.3); Blood Urea Nitrogen 4 mg/dL (7-17); Calcium 7.9 mg/dL (8.4-10.2); Carbon Dioxide 24 mmol/L (22-30); Chloride 105 mmol/L (98-107); Estimated CRCL calculation 122 ml/min; Estimated Glomerular Filt Rate > 60; Glucose 100 mg/dL (65-110); Potassium 3.2 mmol/L (3.4-5.0); Sodium 135 mmol/L (137-145)
[2022-03-19 06:57] LABS: CRP 14.4 mg/dL (<1.0)
[2022-03-19] MEDS: HYDROcodone/acetaminophen (*CRX) 10-325 MG TABLET 1 TAB PO (07:57)
[2022-03-19] MEDS: BACLOFEN 10 MG TABLET 20 MG PO ×2 (07:58→21:48)
[2022-03-19] MEDS: GABAPENTIN 100 MG CAPSULE PO ×2 (07:58→21:47)
[2022-03-19] MEDS: GABAPENTIN 400 MG CAPSULE 800 MG PO ×2 (07:58→21:48)
[2022-03-19] MEDS: DULoxetine HCL 30 MG CAPSULE.DR PO (07:59)
[2022-03-19] MEDS: DULoxetine HCL 60 MG CAPSULE.DR PO (07:59)
[2022-03-19] MEDS: TOPIRAMATE 25 MG TABLET PO (07:59)
[2022-03-19 08:07] LABS: Erythrocyte Sedimentation Rate 44 mm/hr (0-20)
--- NOTE | 2022-03-19 08:57 | P.PNIM_ITS ---
Progress Note: A&P Assessment and Plan (1) Colitis: Code(s): K52.9 - Noninfective gastroenteritis and colitis, unspecified Status: Acute Assessment and Plan: Patient presented with diarrhea since January to the ER on 03/17/2022. * CT show diffuse enteritis possibly infectious or inflammatory. * Patient had been on recent antibiotic use in January. * the patient had been placed on p.o. vancomycin outpatient and had been on it for days when specimens were obtained for C diff. * Those specimens were negative. The patient stop taking the vancomycin then. * Repeat C diff negative * Patient on IV Zosyn * GI has been consulted and appreciate recommendations * Continue with IV fluids * Analgesics for pain control including scheduled Tylenol * White count on 03/17/2022 was 20.8 * Patient's white count is trending down. * Blood cultures no growth to date * Tailor antibiotics to results of cultures. * Colonoscopy scheduled for 03/19/2022 * ESR 44 * CRP 14.4 * White blood cell count 03/19/2022 stable (2) History of deep venous thrombosis: Code(s): Z86.718 - Personal history of other venous thrombosis and embolism Status: Acute Assessment and Plan: Patient has history of 3 DVTs * the patient stated she has not been taking her apixaban because of the diarrhea. * Restarted patient's apixaban * Advised continuation after discharge (3) Diarrhea: Code(s): R19.7 - Diarrhea, unspecified Status: Acute Assessment and Plan: * will recheck stool cultures again. * Blood cultures are pending. * GI has been consulted. * continue with analgesics and IV fluids. * patient was started on Zosyn * Patient had been on antibiotic therapy with vancomycin when she had given last stool sample that was negative. * Repeat C diff negative (4) Rheumatoid arthritis: Code(s): M06.9 - Rheumatoid arthritis, unspecified Status: Acute Assessment and Plan: Continue with current treatment * continue gabapentin Subjective Date/time seen: 03/19/22 08:57 Interval history: This is a very pleasant 41-year-old female patient who stated that she has been having diarrhea since January. Patient states that she has not noticed any blood in her stool or having dark stools. Patient states that diarrhea has progressively gotten worse and that it is even triggered by a water intake. She has had some nausea associated with the diarrhea but a never any vomiting. She use antidiarrheals in the beginning of the diarrhea starting but they have since stopped working and she has stopped taking them. She has significant lower abdominal cramping and urgency when using the bathroom. Has diarrhea between 12 and 13 times a day. She has had fevers but nothing consistent. States that diarrhea had started with a suspected viral illness in January and diarrhea has never resolved itself since then. Patient does have a sister with Crohn's disease. Today patient is feeling slightly better. She is undergoing colonoscopy today. Has not had any diarrhea this morning but feels as if she needs to use the bathroom. Has had short bouts of nausea but no vomiting. Denies fevers, headaches, shortness of breath, chest pain. No blood in stool reported. Review of Systems Review of Systems: All systems reviewed & are unremarkable except as noted in HPI and below Exam Narrative: GENERAL: Comfortable, no acute distress HENMT: moist mucous membranes EYES: EOM intact b/l NECK: no lymphadenopathy RESPIRATORY: clear to auscultation CARDIO: RRR GI: soft,
--- NOTE | 2022-03-19 08:57 | PM.IMPN ---
Progress Note: A&P Assessment and Plan (1) Colitis: Code(s): K52.9 - Noninfective gastroenteritis and colitis, unspecified Status: Acute Assessment and Plan: Patient presented with diarrhea since January to the ER on 03/17/2022. CT show diffuse enteritis possibly infectious or inflammatory. Patient had been on recent antibiotic use in January. the patient had been placed on p.o. vancomycin outpatient and had been on it for days when specimens were obtained for C diff. Those specimens were negative. The patient stop taking the vancomycin then. Repeat C diff negative Patient on IV Zosyn GI has been consulted and appreciate recommendations Continue with IV fluids Analgesics for pain control including scheduled Tylenol White count on 03/17/2022 was 20.8 Patient's white count is trending down. Blood cultures no growth to date Tailor antibiotics to results of cultures. Colonoscopy scheduled for 03/19/2022 ESR 44 CRP 14.4 White blood cell count 03/19/2022 stable (2) History of deep venous thrombosis: Code(s): Z86.718 - Personal history of other venous thrombosis and embolism Status: Acute Assessment and Plan: Patient has history of 3 DVTs the patient stated she has not been taking her apixaban because of the diarrhea. Restarted patient's apixaban Advised continuation after discharge (3) Diarrhea: Code(s): R19.7 - Diarrhea, unspecified Status: Acute Assessment and Plan: will recheck stool cultures again. Blood cultures are pending. GI has been consulted. continue with analgesics and IV fluids. patient was started on Zosyn Patient had been on antibiotic therapy with vancomycin when she had given last stool sample that was negative. Repeat C diff negative (4) Rheumatoid arthritis: Code(s): M06.9 - Rheumatoid arthritis, unspecified Status: Acute Assessment and Plan: Continue with current treatment continue gabapentin Subjective Date/time seen: 03/19/22 08:57 Interval history: This is a very pleasant 41-year-old female patient who stated that she has been having diarrhea since January. Patient states that she has not noticed any blood in her stool or having dark stools. Patient states that diarrhea has progressively gotten worse and that it is even triggered by a water intake. She has had some nausea associated with the diarrhea but a never any vomiting. She use antidiarrheals in the beginning of the diarrhea starting but they have since stopped working and she has stopped taking them. She has significant lower abdominal cramping and urgency when using the bathroom. Has diarrhea between 12 and 13 times a day. She has had fevers but nothing consistent. States that diarrhea had started with a suspected viral illness in January and diarrhea has never resolved itself since then. Patient does have a sister with Crohn's disease. Today patient is feeling slightly better. She is undergoing colonoscopy today. Has not had any diarrhea this morning but feels as if she needs to use the bathroom. Has had short bouts of nausea but no vomiting. Denies fevers, headaches, shortness of breath, chest pain. No blood in stool reported. Review of Systems Review of Systems: All systems reviewed & are unremarkable except as noted in HPI and below Exam Narrative: GENERAL: Comfortable, no acute distress HENMT: moist mucous membranes EYES: EOM intact b/l NECK: no lymphadenopathy RESPIRATORY: clear to auscultation CARDIO: RRR GI: soft, lower abdominal tenderness, left upper quadrant tenderness, bowel sounds present SKIN: no rashes EXTREMITIES: no edema, redness or tenderness Objective Data Vital Signs Vital Signs: Vital Signs - 24 hr 03/18/22 17:38 03/18/22 20:00 03/18/22 22:00 Temperature 96.9 F L 96.1 F L Pulse Rate 86 64 Respiratory Rate 14 17 Blood Pressure 114/90 110/69 Pulse Oximetry 100 98 Oxygen Delivery
--- NOTE | 2022-03-19 12:35 | WPDANESEPPF ---
Anes - Initial Pre Proc Eval Procedure: Operation Date: 03/19/22 13:00 Proposed Procedures p Colonoscopy - Nasim Craft MD Date/Time: 03/19/22 12:35 Surgeon: Liudmila Guillory MD Pre Op Diagnosis: Diarrhea/Sepsis Patient Data Age: 41 Gender: F Height: 1.6 m Weight: 133 kg Last Vital Signs Temp 98.3 F 03/19/22 12:32 Pulse 75 03/19/22 12:32 Resp 18 03/19/22 12:32 BP 98/59 L 03/19/22 12:32 Pulse Ox 97 03/19/22 12:32 O2 Del Method Room Air 03/19/22 12:32 Allergies Allergy/AdvReac Type Severity Reaction Status Date / Time carbamazepine AdvReac Mild Itching Verified 03/17/22 15:35 gatifloxacin AdvReac Mild Itching Verified 03/17/22 15:35 hydroxychloroquine AdvReac Mild Itching Verified 03/17/22 15:35 Home Medications Medication Instructions Recorded Confirmed Type baclofen 20 mg tablet 20 mg PO ,,02/16/21 03/17/22 History duloxetine 60 mg capsule,delayed 60 mg PO DAILY 02/16/21 03/17/22 History release erenumab-aooe 140 mg/mL 140 mg subcut MONTHLY 02/16/21 03/17/22 History subcutaneous auto-injector (Aimovig Autoinjector) gabapentin 100 mg tablet 100 mg PO 08,,02/16/21 03/17/22 History gabapentin 800 mg tablet 800 mg PO ,,02/16/21 03/17/22 History topiramate 100 mg tablet 100 mg PO HS 02/16/21 03/17/22 History topiramate 25 mg tablet 25 mg PO DAILY 02/16/21 03/17/22 History apixaban 2.5 mg tablet (Eliquis) 2.5 mg PO BID #60 tabs 02/06/22 03/17/22 Rx duloxetine 30 mg capsule,delayed 30 mg PO DAILY 02/26/22 03/17/22 History release (Cymbalta) diphenoxylate-atropine 2.5 1 tablet PO TID #30 tabs 03/05/22 03/17/22 Rx mg-0.025 mg tablet (Lomotil) vancomycin 125 mg capsule 125 mg PO QID 10 days #40 caps 03/11/22 03/17/22 Rx Laboratory Tests 03/19/22 03/19/22 03/19/22 06:02 06:02 06:02 WBC 7.3 K/mm3 K/mm3 (4.5-10.0) RBC 4.26 M/mm3 M/mm3 (4.2-5.4) Hgb 11.6 g/dL L g/dL (12.0-15.0) Hct 37.5 % % (37.0-47.0) MCV 88.0 fl fl (80-100) MCH 27.2 pg pg (26-34) MCHC 30.9 g/dl L g/dl (32-36) RDW 15.1 % H % (11.5-14.5) Plt Count 294 k/mm3 k/mm3 (150-375) MPV 10.2 fl fl (7.4-10.4) Immature Gran % (Auto) 0.7 % H % (0-0.5) Neut % (Auto) 63.6 % % (45.5-73.1) Lymph % (Auto) 22.6 % % (18.3-44.2) Coffey % (Auto) 6.5 % % (2.6-8.5) Eos % (Auto) 5.6 % H % (0-4.4) Baso % (Auto) 1.0 % % (0.2-1.2) Lymph # (Auto) 1.66 K/mm3 K/mm3 (0.9-3.2) [place]offey # (Auto) 0.5 K/mm3 K/mm3 (0.1-0.6) Eos # (Auto) 0.4 K/mm3 H K/mm3 (0-0.3) Baso # (Auto) 0.1 K/mm3 K/mm3 (0.0-0.1) Abs Immat Gran (auto) 0.05 K/mm3 H K/mm3 (0.00-0.031) Absolute Neuts (auto) 4.7 K/mm3 K/mm3 (1.3-6.7) Absolute Nucleated RBC 0.0 K/mm3 K/mm3 (0.0-0.012) Nucleated RBC % 0.0 % % (0.0-0.2) ESR 44 mm/hr H mm/hr (0-20) Sodium 135 mmol/L L mmol/L (137-145) Potassium 3.2 mmol/L L mmol/L (3.4-5.0) Chloride 105 mmol/L mmol/L (98-107) Carbon Dioxide 24 mmol/L mmol/L (22-30) Anion Gap 6 mmol/L L mmol/L (8-16) BUN 4 mg/dL L mg/dL (7-17) Creatinine 0.70 mg/dL mg/dL (0.7-1.0) Estim Creat Clear Calc 122 ml/min ml/min Estimated GFR > 60 (59 - ) Glucose 100 mg/dL mg/dL (65-110) Calcium 7.9 mg/dL L mg/dL (8.4-10.2) Total Bilirubin 0.3 mg/dL mg/dL (0.2-1.3) AST 14 U/L U/L (14-36) ALT 15 U/L U/L (6-35) Alkaline Phosphatase 77 U/L U/L (38-126) C-Reactive Protein 14.4 mg/dL H mg/dL (<1.0) Total Protein 6.0 g/dL L g/dL (6.3-8.2) Albumin 3.1 g/dL L g/dL (3.5-5.1) Patient hx anesthesia problems: none Family hx anesthesia problems: none Re
[2022-03-19] MEDS: LACTATED RINGERS 1,000 ML 150 ML IV CONT (12:36)
[2022-03-19] MEDS: ONDANSETRON INJ 4 MG/2 ML VIAL IV PUSH (19:45)
[2022-03-19] MEDS: TOPIRAMATE 100 MG TABLET PO (21:48)
[2022-03-19 22:54] LABS: Toxigenic C. Diff NEGATIVE (NEGATIVE)
[2022-03-20] MEDS: ACETAMINOPHEN 325 MG TABLET 650 MG PO ×4 (00:47→23:14)
[2022-03-20] MEDS: ONDANSETRON INJ 4 MG/2 ML VIAL IV PUSH (05:06)
[2022-03-20] MEDS: HYDROcodone/acetaminophen (*CRX) 10-325 MG TABLET 1 TAB PO (05:06)
[2022-03-20 06:00] VITALS: BP 104/61; PULSE 69; RESP 17; TEMP 36; O2SAT 97
[2022-03-20 06:19] LABS: Basophils Absolute Auto 0.1 K/mm3 (0.0-0.1); Eosinophils Absolute Auto 0.3 K/mm3 (0-0.3); Eosinophils Percent Auto 4.7 % (0-4.4); Hematocrit 39.2 % (37.0-47.0); Hemoglobin 11.9 g/dL (12.0-15.0); Immature Granulocyte Absolute 0.04 K/mm3 (0.00-0.031); Immature Granulocyte Percent A 0.6 % (0-0.5); Lymphocytes Absolute Auto 1.73 K/mm3 (0.9-3.2); Lymphocytes Percent Auto 27.9 % (18.3-44.2); Mean Corpuscular HGB Conc 30.4 g/dl (32-36); Mean Corpuscular Hemoglobin 26.9 pg (26-34); Mean Corpuscular Volume 88.5 fl (80-100); Monocytes Absolute Auto 0.3 K/mm3 (0.1-0.6); Neutrophils Absolute Auto 3.8 K/mm3 (1.3-6.7); Neutrophils Percent Auto 60.8 % (45.5-73.1); Platelet Count Result 292 k/mm3 (150-375); Red Blood Count 4.43 M/mm3 (4.2-5.4); Red Cell Distribution Width 15.2 % (11.5-14.5); White Blood Count 6.2 K/mm3 (4.5-10.0)
[2022-03-20 06:28] LABS: Alanine Aminotransferase 14 U/L (6-35); Albumin Level 3.1 g/dL (3.5-5.1); Alkaline Phosphatase 74 U/L (38-126); Anion Gap 7 mmol/L (8-16); Aspartate Amino Transferase 16 U/L (14-36); Bilirubin,Total 0.2 mg/dL (0.2-1.3); Blood Urea Nitrogen 6 mg/dL (7-17); Calcium 7.8 mg/dL (8.4-10.2); Carbon Dioxide 23 mmol/L (22-30); Chloride 104 mmol/L (98-107); Estimated CRCL calculation 108 ml/min; Estimated Glomerular Filt Rate > 60; Glucose 106 mg/dL (65-110); Magnesium 2.2 mg/dL (1.6-2.3); Potassium 3.1 mmol/L (3.4-5.0); Sodium 134 mmol/L (137-145)
--- NOTE | 2022-03-20 07:24 | WPDANESPN ---
Anes - Prog Note Post-Op Date/Time: 03/20/22 07:24 Cardiovascular status: normal Respiratory status: normal Airway patency: baseline Mental status: baseline Post-Op hydration status: normal Vital Signs: Last Vital Signs Temp 96.8 F L 03/20/22 06:00 Pulse 69 03/20/22 06:00 Resp 17 03/20/22 06:00 BP 104/61 03/20/22 06:00 Pulse Ox 97 03/20/22 06:00 O2 Del Method Room Air 03/19/22 20:00 Pain Score (VAS): 1 I/O: Intake & Output 03/19/22 03/19/22 03/20/22 15:59 23:59 07:59 Intake Total 687 156 6760 Output Total 550 Balance 012 352 9380 Laboratory Tests 03/20/22 05:56 03/20/22 05:56 03/19/22 03/19/22 03/20/22 06:02 21:57 05:56 WBC 6.2 RBC 4.43 Hgb 11.9 L Hct 39.2 MCV 88.5 MCH 26.9 MCHC 30.4 L RDW 15.2 H Plt Count 292 MPV 10.0 Immature Gran % (Auto) 0.6 H Neut % (Auto) 60.8 Lymph % (Auto) 27.9 Carlton % (Auto) 5.0 Eos % (Auto) 4.7 H Baso % (Auto) 1.0 Lymph # (Auto) 1.73 Carlton # (Auto) 0.3 Eos # (Auto) 0.3 Baso # (Auto) 0.1 Abs Immat Gran (auto) 0.04 H Absolute Neuts (auto) 3.8 Absolute Nucleated RBC 0.0 Nucleated RBC % 0.0 ESR 44 H Sodium Potassium Chloride Carbon Dioxide Anion Gap BUN Creatinine Estim Creat Clear Calc Estimated GFR Glucose Calcium Magnesium Total Bilirubin AST ALT Alkaline Phosphatase Total Protein Albumin C. difficile (PCR) Negative 03/20/22 05:56 WBC RBC Hgb Hct MCV MCH MCHC RDW Plt Count MPV Immature Gran % (Auto) Neut % (Auto) Lymph % (Auto) Carlton % (Auto) Eos % (Auto) Baso % (Auto) Lymph # (Auto) Carlton # (Auto) Eos # (Auto) Baso # (Auto) Abs Immat Gran (auto) Absolute Neuts (auto) Absolute Nucleated RBC Nucleated RBC % ESR Sodium 134 L Potassium 3.1 L Chloride 104 Carbon Dioxide 23 Anion Gap 7 L BUN 6 L Creatinine 0.80 Estim Creat Clear Calc 108 Estimated GFR > 60 Glucose 106 Calcium 7.8 L Magnesium 2.2 Total Bilirubin 0.2 AST 16 ALT 14 Alkaline Phosphatase 74 Total Protein 6.0 L Albumin 3.1 L C. difficile (PCR) Patient Feedback: Patient satisfied with anesthetic care.
--- NOTE | 2022-03-20 07:47 | WPDGIPROGNO ---
Progress Note: A&P Assessment and Plan (1) Diarrhea: Code(s): R19.7 - Diarrhea, unspecified Status: Acute Assessment and Plan: I suspect that she has inflammatory bowel disease. C difficile colitis remains a possibility, however she did not have risk factors for that. Unfortunately when she was tested she had already started taking vancomycin. repeat stool for C diff is again negative. I am fairly certain now that she does not have an infectious colitis. I will start her on Lomotil 2 tabs q.8 hours for symptomatic relief. will check her for celiac disease, particularly given the fact she has had weight loss and also was anemic and as low albumin Will also check stool for elastase to rule out pancreatic insufficiency, although she does not have the usual risk factors (2) Colitis: Code(s): K52.9 - Noninfective gastroenteritis and colitis, unspecified Status: Acute Assessment and Plan: She is scheduled for colonoscopy to be done tomorrow. I discussed with her the prep I told her that even though she has diarrhea will need to give her some bowel prep because of the likelihood of mucoid thick stool in the ascending colon 03/20/2022 still having severe diarrhea. I discussed with her the results of her colonoscopy, patchy inflammation in the right colon only. No classic changes that would be consistent with ulcerative colitis or Crohn's disease. Biopsies are pending (3) BMI 50.0-59.9, adult: Code(s): Z68.43 - Body mass index [BMI] 50.0-59.9, adult Status: Acute Assessment and Plan: she actually has lost about 15 lb with the present illness (4) Hypoalbuminemia: Code(s): E88.09 - Other disorders of plasma-protein metabolism, not elsewhere classified Status: Acute Assessment and Plan: albumin is low at 3.1. This is consistent with her history of the weight loss and poor oral intake. I did discuss her diet history with her. She eats fairly round diet although low in fiber. She has symptoms of diarrhea and more recently nausea or cramping, no matter what she eats. (5) Anemia: Code(s): D64.9 - Anemia, unspecified Status: Acute Assessment and Plan: Her hemoglobin in January at about the time her symptoms began was 13.9. It is now down to 11.9. I should add that she has not had blood in her stools. MCV is normal, although I am again suspicious that this could be a malabsorption problem such as celiac disease. Subjective Date/time seen: 03/20/22 07:47 she had very miserable night. Six watery bowel movements during the night. She states that she also was nauseated all night although she did get Zofran rim then added that the Zofran did help and ameliorated the nausea. She also states that after she ate a bland dinner she was uncomfortable cross her upper abdomen for a few hours, questioning whether could be her gallbladder causing the problems. Although I reviewed the records, I asked her if she was aware that she had ever been tested for celiac disease and she is fairly certain she had not been. There is also no family history of such. Exam Const: General: alert Nutritional Appearance: obese Orientation/consciousness: patient oriented x3 Resp: Auscultation: clear to auscultation bilaterally Cardio: Rhythm: regular rhythm GI: Inspection: obesity GI Palp: Yes Soft to palpation, Yes Tenderness to palpation present (GI) ( more tender in the mid and upper abdomen today), No Guarding due to palpation present (GI) and Yes No hepatosplenomegaly present Auscultation: normal bowel sounds Neuro: General: patient oriented x3 Objective Data Vital Signs Vital Signs: Vital Signs - 24 hr 03/19/22 12:32 03/19/22 13:19 03/19/22 13:29 Temperature 36.8 C Pulse Rate 75 76 83 Respiratory Rate 18 16 20 Blood Pressure 98/59 L 84/49 L 101/63 Pulse Oximetry 97 98 97 Oxygen Delivery Room Air Room Air Room Air 03/19/22 13:39 0
[2022-03-20] MEDS: DIPHENOXYLATE/ATROPINE (*CRX) 2.5 MG TABLET 2 TABLET PO ×3 (08:02→21:51)
[2022-03-20] MEDS: GABAPENTIN 400 MG CAPSULE 800 MG PO ×3 (08:03→20:04)
[2022-03-20] MEDS: TOPIRAMATE 25 MG TABLET PO (08:03)
[2022-03-20] MEDS: GABAPENTIN 100 MG CAPSULE PO ×3 (08:03→20:04)
[2022-03-20] MEDS: DULoxetine HCL 30 MG CAPSULE.DR PO (08:03)
[2022-03-20] MEDS: DULoxetine HCL 60 MG CAPSULE.DR PO (08:03)
[2022-03-20] MEDS: BACLOFEN 10 MG TABLET 20 MG PO ×3 (08:09→20:04)
[2022-03-20 10:38] LABS: IFOB Positive Control Positive; Immunochemical Fecal Occult Bl Positive (N)
--- NOTE | 2022-03-20 12:12 | P.PNIM_ITS ---
Progress Note: A&P Assessment and Plan (1) Colitis: Code(s): K52.9 - Noninfective gastroenteritis and colitis, unspecified Status: Acute Assessment and Plan: Patient presented with diarrhea since January to the ER on 03/17/2022. * CT show diffuse enteritis possibly infectious or inflammatory. * Patient had been on recent antibiotic use in January. * the patient had been placed on p.o. vancomycin outpatient and had been on it for days when specimens were obtained for C diff. * Those specimens were negative. The patient stop taking the vancomycin then. * Repeat C diff negative * Patient on IV Zosyn * GI has been consulted and appreciate recommendations * Continue with IV fluids * Analgesics for pain control including scheduled Tylenol * White count on 03/17/2022 was 20.8 03/19/22 * Patient's white count is trending down. * Blood cultures no growth to date * Tailor antibiotics to results of cultures. * Colonoscopy scheduled for 03/19/2022 * ESR 44 * CRP 14.4 * White blood cell count 03/19/2022 stable 03/20/22 * Colonoscopy report stated moderate localized colitis in the ascending colon and transverse colon. * Discussed with Dr. Craft and he did a workup on the patient regarding other possibilities for diarrhea. * Patient is still having symptoms such as diarrhea, abdominal pain and nausea. * IV Zosyn continued * White blood cell count continues to be stable * Hemoccult positive - GI already seeing patient (2) History of deep venous thrombosis: Code(s): Z86.718 - Personal history of other venous thrombosis and embolism Status: Acute Assessment and Plan: Patient has history of 3 DVTs * the patient stated she has not been taking her apixaban because of the diarrhea. * Restarted patient's apixaban * Advised continuation after discharge (3) Diarrhea: Code(s): R19.7 - Diarrhea, unspecified Status: Acute Assessment and Plan: * Blood cultures are pending. * GI has been consulted. * continue with analgesics and IV fluids. * patient was started on Zosyn * Patient had been on antibiotic therapy with vancomycin when she had given last stool sample that was negative. (4) Rheumatoid arthritis: Code(s): M06.9 - Rheumatoid arthritis, unspecified Status: Acute Assessment and Plan: Continue with current treatment * continue gabapentin Subjective Date/time seen: 03/20/22 12:12 Interval history: 03/20/22 This is a very pleasant 41-year-old female patient who stated that she has been having diarrhea since January. Patient states that she has not noticed any blood in her stool or having dark stools. Patient states that diarrhea has progressively gotten worse and that it is even triggered by a water intake. She has had some nausea associated with the diarrhea but a never any vomiting. She use antidiarrheals in the beginning of the diarrhea starting but they have since stopped working and she has stopped taking them. She has significant lower abdominal cramping and urgency when using the bathroom. Has diarrhea between 12 and 13 times a day. She has had fevers but nothing consistent. States that diarrhea had started with a suspected viral illness in January and diarrhea has never resolved itself since then. Patient does have a sister with Crohn's disease is she has a history of rheumatoid arthritis. Patient is still having diarrhea as well as abdominal pain and nausea. Patient states that she has not had a fever or felt feverish since being in the hospital. Patient denies skin rash as well as new onset of joint and
--- NOTE | 2022-03-20 12:12 | PM.IMPN ---
Progress Note: A&P Assessment and Plan (1) Colitis: Code(s): K52.9 - Noninfective gastroenteritis and colitis, unspecified Status: Acute Assessment and Plan: Patient presented with diarrhea since January to the ER on 03/17/2022. CT show diffuse enteritis possibly infectious or inflammatory. Patient had been on recent antibiotic use in January. the patient had been placed on p.o. vancomycin outpatient and had been on it for days when specimens were obtained for C diff. Those specimens were negative. The patient stop taking the vancomycin then. Repeat C diff negative Patient on IV Zosyn GI has been consulted and appreciate recommendations Continue with IV fluids Analgesics for pain control including scheduled Tylenol White count on 03/17/2022 was 20.8 03/19/22 Patient's white count is trending down. Blood cultures no growth to date Tailor antibiotics to results of cultures. Colonoscopy scheduled for 03/19/2022 ESR 44 CRP 14.4 White blood cell count 03/19/2022 stable 03/20/22 Colonoscopy report stated moderate localized colitis in the ascending colon and transverse colon. Discussed with Dr. Craft and he did a workup on the patient regarding other possibilities for diarrhea. Patient is still having symptoms such as diarrhea, abdominal pain and nausea. IV Zosyn continued White blood cell count continues to be stable Hemoccult positive - GI already seeing patient (2) History of deep venous thrombosis: Code(s): Z86.718 - Personal history of other venous thrombosis and embolism Status: Acute Assessment and Plan: Patient has history of 3 DVTs the patient stated she has not been taking her apixaban because of the diarrhea. Restarted patient's apixaban Advised continuation after discharge (3) Diarrhea: Code(s): R19.7 - Diarrhea, unspecified Status: Acute Assessment and Plan: Blood cultures are pending. GI has been consulted. continue with analgesics and IV fluids. patient was started on Zosyn Patient had been on antibiotic therapy with vancomycin when she had given last stool sample that was negative. (4) Rheumatoid arthritis: Code(s): M06.9 - Rheumatoid arthritis, unspecified Status: Acute Assessment and Plan: Continue with current treatment continue gabapentin Subjective Date/time seen: 03/20/22 12:12 Interval history: 03/20/22 This is a very pleasant 41-year-old female patient who stated that she has been having diarrhea since January. Patient states that she has not noticed any blood in her stool or having dark stools. Patient states that diarrhea has progressively gotten worse and that it is even triggered by a water intake. She has had some nausea associated with the diarrhea but a never any vomiting. She use antidiarrheals in the beginning of the diarrhea starting but they have since stopped working and she has stopped taking them. She has significant lower abdominal cramping and urgency when using the bathroom. Has diarrhea between 12 and 13 times a day. She has had fevers but nothing consistent. States that diarrhea had started with a suspected viral illness in January and diarrhea has never resolved itself since then. Patient does have a sister with Crohn's disease is she has a history of rheumatoid arthritis. Patient is still having diarrhea as well as abdominal pain and nausea. Patient states that she has not had a fever or felt feverish since being in the hospital. Patient denies skin rash as well as new onset of joint and muscle aches. patient denies chest pain, shortness a breath, vomiting, headache, dizziness, and urinary symptoms. Review of Systems Review of Systems: All systems reviewed & are unremarkable except as noted in HPI and below Exam Narrative: GENERAL: Comfortable, no acute distress, obese HENMT: moist mucous membranes EYES: EOM intact b/l NECK: no lymphadenopathy RESPIRATOR
[2022-03-20 14:00] VITALS: BP 109/71; PULSE 81; RESP 16; TEMP 36.6; O2SAT 94
[2022-03-20 20:00] VITALS: O2SAT 94
[2022-03-20] MEDS: TOPIRAMATE 100 MG TABLET PO (20:04)
[2022-03-20 22:00] VITALS: BP 122/76; PULSE 67; RESP 14; TEMP 36; O2SAT 100
[2022-03-21] MEDS: DIPHENOXYLATE/ATROPINE (*CRX) 2.5 MG TABLET 2 TABLET PO ×3 (05:05→21:33)
[2022-03-21] MEDS: ACETAMINOPHEN 325 MG TABLET 650 MG PO ×3 (05:05→18:09)
[2022-03-21 06:00] VITALS: BP 119/59; PULSE 71; RESP 18; TEMP 36.1; O2SAT 97
[2022-03-21 06:29] LABS: Hematocrit 39.4 % (37.0-47.0); Mean Corpuscular HGB Conc 30.5 g/dl (32-36); Mean Corpuscular Hemoglobin 26.9 pg (26-34); Mean Corpuscular Volume 88.3 fl (80-100); Platelet Count Result 291 k/mm3 (150-375); Red Blood Count 4.46 M/mm3 (4.2-5.4); Red Cell Distribution Width 15.2 % (11.5-14.5); White Blood Count 5.8 K/mm3 (4.5-10.0)
[2022-03-21 06:43] LABS: Alanine Aminotransferase 16 U/L (6-35); Albumin Level 3.1 g/dL (3.5-5.1); Alkaline Phosphatase 69 U/L (38-126); Anion Gap 5 mmol/L (8-16); Aspartate Amino Transferase 23 U/L (14-36); Bilirubin,Total 0.2 mg/dL (0.2-1.3); Blood Urea Nitrogen 5 mg/dL (7-17); Calcium 7.8 mg/dL (8.4-10.2); Carbon Dioxide 25 mmol/L (22-30); Chloride 108 mmol/L (98-107); Estimated CRCL calculation 108 ml/min; Estimated Glomerular Filt Rate > 60; Glucose 114 mg/dL (65-110); Potassium 3.1 mmol/L (3.4-5.0); Sodium 138 mmol/L (137-145)
--- NOTE | 2022-03-21 07:18 | WPDGIPROGNO ---
Progress Note: A&P Assessment and Plan (1) Diarrhea: Code(s): R19.7 - Diarrhea, unspecified Status: Acute Assessment and Plan: I suspect that she has inflammatory bowel disease. C difficile colitis remains a possibility, however she did not have risk factors for that. Unfortunately when she was tested she had already started taking vancomycin. repeat stool for C diff is again negative. I am fairly certain now that she does not have an infectious colitis. I will start her on Lomotil 2 tabs q.8 hours for symptomatic relief. will check her for celiac disease, particularly given the fact she has had weight loss and also was anemic and as low albumin Will also check stool for elastase to rule out pancreatic insufficiency, although she does not have the usual risk factors (2) Colitis: Code(s): K52.9 - Noninfective gastroenteritis and colitis, unspecified Status: Acute Assessment and Plan: She is scheduled for colonoscopy to be done tomorrow. I discussed with her the prep I told her that even though she has diarrhea will need to give her some bowel prep because of the likelihood of mucoid thick stool in the ascending colon 03/21/2022 still having severe diarrhea. I discussed with her the results of her colonoscopy, patchy inflammation in the right colon only. No classic changes that would be consistent with ulcerative colitis or Crohn's disease. Histologically, the changes are not consistent with ulcerative colitis, no cryptitis seen. It also does not look like Crohn's disease he does however have a sister with Crohn's disease which raises the probability of that. (3) BMI 50.0-59.9, adult: Code(s): Z68.43 - Body mass index [BMI] 50.0-59.9, adult Status: Acute Assessment and Plan: she actually has lost about 15 lb with the present illness (4) Hypoalbuminemia: Code(s): E88.09 - Other disorders of plasma-protein metabolism, not elsewhere classified Status: Acute Assessment and Plan: albumin is low at 3.1. This is consistent with her history of the weight loss and poor oral intake. I did discuss her diet history with her. She eats fairly round diet although low in fiber. She has symptoms of diarrhea and more recently nausea or cramping, no matter what she eats. (5) Anemia: Code(s): D64.9 - Anemia, unspecified Status: Acute Assessment and Plan: Her hemoglobin in January at about the time her symptoms began was 13.9. It is now down to 11.9. I should add that she has not had blood in her stools. MCV is normal, although I am again suspicious that this could be a malabsorption problem such as celiac disease. (6) Abdominal pain: Code(s): R10.9 - Unspecified abdominal pain Status: Acute Assessment and Plan: she continues to have discomfort in the mid to upper abdomen and it was worse after eating dinner last night; she states that ultrasound was discussed but had not yet been ordered. I will go ahead and order that now. Subjective Date/time seen: 03/21/22 07:18 she still has persistent diarrhea. After her dinner last night she had 6 loose stools over the next several hours. Her pain today is primarily in the upper half of her abdomen. It is a constant soreness. She thought that she was going to have an ultrasound. I do not see it in orders but will go ahead and put through now. Discussed results with her, the colon biopsy showing inflammation which looks more acute than say ulcerative colitis. She mentioned that she has a sister with Crohn's disease. Exam Const: General: alert Nutritional Appearance: obese Orientation/consciousness: patient oriented x3 Resp: Auscultation: clear to auscultation bilaterally Cardio: Rhythm: regular rhythm GI: Inspection: obesity GI Palp: Yes Soft to palpation, Yes Tenderness to palpation present (GI) ( more tender in the mid and upper abdomen today), No Guarding due to
[2022-03-21] MEDS: HYDROcodone/acetaminophen (*CRX) 10-325 MG TABLET 1 TAB PO (09:19)
[2022-03-21] MEDS: BACLOFEN 10 MG TABLET 20 MG PO ×3 (09:20→20:15)
[2022-03-21] MEDS: GABAPENTIN 400 MG CAPSULE 800 MG PO ×3 (09:20→20:15)
[2022-03-21] MEDS: DULoxetine HCL 60 MG CAPSULE.DR PO (09:21)
[2022-03-21] MEDS: GABAPENTIN 100 MG CAPSULE PO ×3 (09:21→20:14)
[2022-03-21] MEDS: DULoxetine HCL 30 MG CAPSULE.DR PO (09:21)
[2022-03-21] MEDS: TOPIRAMATE 25 MG TABLET PO (09:25)
--- NOTE | 2022-03-21 13:59 | P.PNIM_ITS ---
Progress Note: A&P Assessment and Plan (1) Colitis: Code(s): K52.9 - Noninfective gastroenteritis and colitis, unspecified Status: Acute Assessment and Plan: Patient presented with diarrhea since January to the ER on 03/17/2022. * CT show diffuse enteritis possibly infectious or inflammatory. * Patient had been on recent antibiotic use in January. * the patient had been placed on p.o. vancomycin outpatient and had been on it for days when specimens were obtained for C diff. * Those specimens were negative. The patient stop taking the vancomycin then. * Repeat C diff negative * Patient on IV Zosyn * GI has been consulted and appreciate recommendations * Continue with IV fluids * Analgesics for pain control including scheduled Tylenol * White count on 03/17/2022 was 20.8 03/19/22 * Patient's white count is trending down. * Blood cultures no growth to date * Tailor antibiotics to results of cultures. * Colonoscopy scheduled for 03/19/2022 * ESR 44 * CRP 14.4 * White blood cell count 03/19/2022 stable 03/20/22 * Colonoscopy report stated moderate localized colitis in the ascending colon and transverse colon. * Discussed with Dr. Craft and he did a workup on the patient regarding other possibilities for diarrhea. * Patient is still having symptoms such as diarrhea, abdominal pain and nausea. * IV Zosyn continued * White blood cell count continues to be stable * Hemoccult positive - GI already seeing patient 03/21/22 Persistent abdominal pain and loose stool. Day 5 Zosyn IV. change norco to percocet PRN. stool studies pending per GI. (2) History of deep venous thrombosis: Code(s): Z86.718 - Personal history of other venous thrombosis and embolism Status: Acute Assessment and Plan: Patient has history of 3 DVTs * the patient stated she has not been taking her apixaban because of the diarrhea. * Restarted patient's apixaban * Advised continuation after discharge (3) Cholelithiasis: Qualifiers: Cholelithiasis location: gallbladder Cholecystitis presence: without cholecystitis Biliary obstruction: without biliary obstruction Qualified Code(s): K80.20 - Calculus of gallbladder without cholecystitis without obstruction Code(s): K80.20 - Calculus of gallbladder without cholecystitis without obstruction Status: Acute Assessment and Plan: Abdominal US shows cholelithiasis, gallbladder distention and mildly dilated common bile duct. She also reports c/o increase pain and bloating after eating. ?pain secondary to gallbladder disease versus colitis. * General surgery consulted for evaluation. * GI already following. * Low fat diet when tolerating PO. * LFTs within normal limit. * No gallbladder wall thickening or melissa's sign to suggest acute cholecystitis, however, patient is also being treated with Zosyn currently. (4) Diarrhea: Code(s): R19.7 - Diarrhea, unspecified Status: Acute Assessment and Plan: * Blood cultures are negative to date. * GI has been consulted. * continue with analgesics and IV fluids. * patient was started on Zosyn * Patient had been on antibiotic therapy with vancomycin x 5 days prior to admission. cdiff negative on admission. * Loperamide PRN loose stool * Monitor stool output (5) Rheumatoid arthritis: Code(s): M06.9 - Rheumatoid arthritis, unspecified Status: Acute Assessment and Plan: Continue with current treatment * continue gabapentin Plan CODE STATUS: FULL CODE Discharge disposition: home when tolerating diet Time S
--- NOTE | 2022-03-21 13:59 | PM.IMPN ---
Progress Note: A&P Assessment and Plan (1) Colitis: Code(s): K52.9 - Noninfective gastroenteritis and colitis, unspecified Status: Acute Assessment and Plan: Patient presented with diarrhea since January to the ER on 03/17/2022. CT show diffuse enteritis possibly infectious or inflammatory. Patient had been on recent antibiotic use in January. the patient had been placed on p.o. vancomycin outpatient and had been on it for days when specimens were obtained for C diff. Those specimens were negative. The patient stop taking the vancomycin then. Repeat C diff negative Patient on IV Zosyn GI has been consulted and appreciate recommendations Continue with IV fluids Analgesics for pain control including scheduled Tylenol White count on 03/17/2022 was 20.8 03/19/22 Patient's white count is trending down. Blood cultures no growth to date Tailor antibiotics to results of cultures. Colonoscopy scheduled for 03/19/2022 ESR 44 CRP 14.4 White blood cell count 03/19/2022 stable 03/20/22 Colonoscopy report stated moderate localized colitis in the ascending colon and transverse colon. Discussed with Dr. Craft and he did a workup on the patient regarding other possibilities for diarrhea. Patient is still having symptoms such as diarrhea, abdominal pain and nausea. IV Zosyn continued White blood cell count continues to be stable Hemoccult positive - GI already seeing patient 03/21/22 Persistent abdominal pain and loose stool. Day 5 Zosyn IV. change norco to percocet PRN. stool studies pending per GI. (2) History of deep venous thrombosis: Code(s): Z86.718 - Personal history of other venous thrombosis and embolism Status: Acute Assessment and Plan: Patient has history of 3 DVTs the patient stated she has not been taking her apixaban because of the diarrhea. Restarted patient's apixaban Advised continuation after discharge (3) Cholelithiasis: Qualifiers: Cholelithiasis location: gallbladder Cholecystitis presence: without cholecystitis Biliary obstruction: without biliary obstruction Qualified Code(s): K80.20 - Calculus of gallbladder without cholecystitis without obstruction Code(s): K80.20 - Calculus of gallbladder without cholecystitis without obstruction Status: Acute Assessment and Plan: Abdominal US shows cholelithiasis, gallbladder distention and mildly dilated common bile duct. She also reports c/o increase pain and bloating after eating. ?pain secondary to gallbladder disease versus colitis. General surgery consulted for evaluation. GI already following. Low fat diet when tolerating PO. LFTs within normal limit. No gallbladder wall thickening or melissa's sign to suggest acute cholecystitis, however, patient is also being treated with Zosyn currently. (4) Diarrhea: Code(s): R19.7 - Diarrhea, unspecified Status: Acute Assessment and Plan: Blood cultures are negative to date. GI has been consulted. continue with analgesics and IV fluids. patient was started on Zosyn Patient had been on antibiotic therapy with vancomycin x 5 days prior to admission. cdiff negative on admission. Loperamide PRN loose stool Monitor stool output (5) Rheumatoid arthritis: Code(s): M06.9 - Rheumatoid arthritis, unspecified Status: Acute Assessment and Plan: Continue with current treatment continue gabapentin Plan CODE STATUS: FULL CODE Discharge disposition: home when tolerating diet Time Spent With Patient Time: All questions answered to the best of my ability. Time with patient: 15 - 25 minutes Subjective Date/time seen: 03/21/22 13:59 Interval history: Patient is a 41-year-old female with RA, history of DVT, anxiety and obesity who presented to the ED for evaluation of diarrhea since January. The diarrhea progressively worsened and even triggered by a water intake. She has had some nausea
[2022-03-21 14:00] VITALS: BP 123/88; PULSE 89; RESP 20; TEMP 36.6; O2SAT 98
[2022-03-21] MEDS: ONDANSETRON INJ 4 MG/2 ML VIAL IV PUSH ×2 (16:32→20:19)
[2022-03-21] MEDS: oxyCODONE/ACETAMINOPHEN (*CRX) 10-325 MG TABLET 1 TAB PO (16:32)
--- NOTE | 2022-03-21 16:53 | PM.CNGS ---
Assessment and Plan Assessment and plan (1) Abdominal pain: Code(s): R10.9 - Unspecified abdominal pain Status: Acute Assessment and Plan: The patient has abdominal pain that does seem to be aggravated by eating, but with her colitis, it is difficult to rule out if any of her pain is related to chronic cholecystitis or biliary colic. Her abdominal ultrasound does show evidence of a gallstone but no findings to suggest acute cholecystitis. Her WBC is normal and her LFTs are normal. We would recommend that she continue with medical management of her colitis for now and follow a low fat diet. If she continues to have persistent symptoms after her acute colitis has resolved, then we could re-evaluate her as an outpatient regarding her gallbladder. For now, continue with dietary modifications and I discussed this with the patient today. Thank you for allowing us to see the patient in consultation. (2) Cholelithiasis: Code(s): K80.20 - Calculus of gallbladder without cholecystitis without obstruction Status: Acute (3) Colitis: Code(s): K52.9 - Noninfective gastroenteritis and colitis, unspecified Status: Acute Assessment and Plan: Continue medical management. GI following. Stool studies negative. (4) Trigeminal neuralgia: Code(s): G50.0 - Trigeminal neuralgia Status: Acute (5) Rheumatoid arthritis: Code(s): M06.9 - Rheumatoid arthritis, unspecified Status: Acute Assessment and Plan: Not currently on any medication for her RA. (6) History of deep venous thrombosis: Code(s): Z86.718 - Personal history of other venous thrombosis and embolism Status: Acute Assessment and Plan: Remote history of DVTs x 3 and took herself off of Eliquis without the direction of a physician after having a hematoma a few years ago. Has not had any anticoagulation since even with the recommendation to restart this medicine. (7) Morbid (severe) obesity due to excess calories: Code(s): E66.01 - Morbid (severe) obesity due to excess calories Status: Acute Assessment and Plan: Encouraged dietary and lifestyle modifications to promote weight loss. Plan I have discussed the patient's case and plan of care with Dr. Lee. History of Present Illness Consult details Consult date: 03/21/22 Reason for consult: gallstones Requesting physician: Susan Jacobo, [employer] Narrative: This is a 41-year-old woman with history of morbid obesity, remote history of DVT not currently on any anticoagulation, rheumatoid arthritis, trigeminal neuralgia, and hypertension, who presented to the ER on 03/17/2022 with complaints of diarrhea for 2-3 months. She believes she had influenza A from her daughter on January 22 and had developed a cough, congestion, and diarrhea. Her diarrhea persisted for 12 days and she presented to urgent care. At that time, she was told it was a virus and was started on steroids and an inhaler. She continued to have diarrhea over the next few weeks. She eventually saw her PCP on 2 different occasions and was given cefdinir and steroids. A separate time she was given vancomycin and then had a C diff test following the vancomycin initiation. Her diarrhea seems to have gotten worse over the last 2 weeks and she feels she has lost about 15 lb in that time frame. She reports up to 20 stools per day. She additionally had complaints of diffuse abdominal pain over the past few weeks and fever the day prior to admission. In the ER, she was found have a white blood cell count of 20,800. CT scan showed evidence of colitis. No abnormalities of the gallbladder noted. She was admitted to the hospitalist service and GI was consulted. She underwent a colonoscopy on 03/19/2022 that showed evidence of colitis in the ascending and transverse colon. Biopsies taken showed nonspecific chronic colitis and some necrotic material suggesting erosion or ulcer.
[2022-03-21 20:00] VITALS: O2SAT 98
[2022-03-21] MEDS: TOPIRAMATE 100 MG TABLET PO (20:15)
[2022-03-21 22:00] VITALS: BP 132/83; PULSE 70; RESP 14; TEMP 35.8; O2SAT 97
[2022-03-22] VITALS (8 sets, daily range): BP systolic 118–158; BP diastolic 68–93; PULSE 59–87; RESP 14–18; TEMP 35.5–36.2; O2SAT 96–100
[2022-03-22] MEDS: oxyCODONE/ACETAMINOPHEN (*CRX) 10-325 MG TABLET 1 TAB PO (00:33)
[2022-03-22] MEDS: ACETAMINOPHEN 325 MG TABLET 650 MG PO ×5 (05:21→20:19)
[2022-03-22] MEDS: DIPHENOXYLATE/ATROPINE (*CRX) 2.5 MG TABLET 2 TABLET PO ×3 (05:21→21:07)
--- NOTE | 2022-03-22 09:30 | WPDANESEPPF ---
Anes - Initial Pre Proc Eval Procedure: Operation Date: 03/22/22 13:00 Proposed Procedures p Esophagogastroduodenoscopy - Nasim Craft MD Date/Time: 03/22/22 09:30 Surgeon: Liudmila Guillory MD Pre Op Diagnosis: Diarrhea/Sepsis Patient Data Age: 41 Gender: F Height: 1.6 m Weight: 133 kg Last Vital Signs Temp 35.5 C L 03/22/22 06:00 Pulse 65 03/22/22 06:00 Resp 14 03/22/22 06:00 BP 125/68 03/22/22 06:00 Pulse Ox 97 03/22/22 06:00 O2 Del Method Room Air 03/21/22 20:00 Allergies Allergy/AdvReac Type Severity Reaction Status Date / Time carbamazepine AdvReac Mild Itching Verified 03/17/22 15:35 gatifloxacin AdvReac Mild Itching Verified 03/17/22 15:35 hydroxychloroquine AdvReac Mild Itching Verified 03/17/22 15:35 Home Medications Medication Instructions Recorded Confirmed Type baclofen 20 mg tablet 20 mg PO ,,02/16/21 03/17/22 History duloxetine 60 mg capsule,delayed 60 mg PO DAILY 02/16/21 03/17/22 History release erenumab-aooe 140 mg/mL 140 mg subcut MONTHLY 02/16/21 03/17/22 History subcutaneous auto-injector (Aimovig Autoinjector) gabapentin 100 mg tablet 100 mg PO ,,02/16/21 03/17/22 History gabapentin 800 mg tablet 800 mg PO ,,02/16/21 03/17/22 History topiramate 100 mg tablet 100 mg PO HS 02/16/21 03/17/22 History topiramate 25 mg tablet 25 mg PO DAILY 02/16/21 03/17/22 History apixaban 2.5 mg tablet (Eliquis) 2.5 mg PO BID #60 tabs 02/06/22 03/17/22 Rx duloxetine 30 mg capsule,delayed 30 mg PO DAILY 02/26/22 03/17/22 History release (Cymbalta) diphenoxylate-atropine 2.5 1 tablet PO TID #30 tabs 03/05/22 03/17/22 Rx mg-0.025 mg tablet (Lomotil) vancomycin 125 mg capsule 125 mg PO QID 10 days #40 caps 03/11/22 03/17/22 Rx Patient hx anesthesia problems: none Family hx anesthesia problems: none Results Review: All pre-operative results and documents have been reviewed as part of the pre-operative evaluation. [facility] Past Medical History Medical History Anxiety Headache History of deep venous thrombosis 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 Hx of gestational diabetes mellitus, not currently Insulin resistance Migraine Obesity Rheumatoid arthritis Trigeminal neuralgia Vaginal delivery Surgical History Surgical History Status post tonsillectomy Family History Family History Grandparent Family history of endocrine disorder Family history of malignant neoplasm of breast Family history of coronary artery disease Diabetes mellitus Hypertension Cerebrovascular accident Father Hypertension Family history of coronary artery disease Mother Family history of lung cancer Sibling COVID-19 Social History Social History Social History: The patient lives with her and has 2 children. 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 Lifelong nonsmoker. She does not use any drugs or alcohol. 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 Gender identity (if verbalized by the patient): Female Spiritual care concerns: No Anes - Eval Final PreProcedure Day of Procedure 03/22/22 09
--- NOTE | 2022-03-22 09:38 | PC.NURSE ---
Patient off of unit to GI lab.
[2022-03-22] MEDS: LACTATED RINGERS 1,000 ML 150 ML IV CONT (09:44)
[2022-03-22 12:30] LABS: CRP 1.5 mg/dL (<1.0)
[2022-03-22] MEDS: BACLOFEN 10 MG TABLET 20 MG PO ×2 (12:31→20:19)
[2022-03-22] MEDS: methylPREDNISolone SOD SUCC 40 MG VIAL IV PUSH ×3 (12:31→23:16)
[2022-03-22] MEDS: GABAPENTIN 400 MG CAPSULE 800 MG PO ×2 (12:32→20:19)
[2022-03-22] MEDS: GABAPENTIN 100 MG CAPSULE PO ×2 (12:32→20:19)
--- NOTE | 2022-03-22 13:07 | PM.PNGS ---
Progress Note: A&P Assessment and Plan (1) Abdominal pain: Code(s): R10.9 - Unspecified abdominal pain Status: Acute Assessment and Plan: Abdominal pain unchanged but she feels her diarrhea is improving. We would recommend to continue medical treatment for the colitis. She should follow a low fat diet even after discharge, which was discussed with the patient. While she has acute colitis, it is difficult to differentiate if her abdominal pain is all related to the colitis or if she could have some element of chronic cholecystitis or biliary colic. No indication for urgent surgical intervention at this time. Recommend that the patient follow up in the office 2 weeks after discharge to re-evaluate her symptoms once her colitis has resolved. Will sign off at this point and follow peripherally. Call with any surgical questions or concerns. (2) Cholelithiasis: Qualifiers: Cholelithiasis location: gallbladder Cholecystitis presence: without cholecystitis Biliary obstruction: without biliary obstruction Qualified Code(s): K80.20 - Calculus of gallbladder without cholecystitis without obstruction Code(s): K80.20 - Calculus of gallbladder without cholecystitis without obstruction Status: Acute (3) Colitis: Code(s): K52.9 - Noninfective gastroenteritis and colitis, unspecified Status: Acute Assessment and Plan: Continue medical management. GI following. EGD normal this morning, biopsies taken. (4) Trigeminal neuralgia: Code(s): G50.0 - Trigeminal neuralgia Status: Acute (5) Rheumatoid arthritis: Code(s): M06.9 - Rheumatoid arthritis, unspecified Status: Acute (6) Morbid (severe) obesity due to excess calories: Code(s): E66.01 - Morbid (severe) obesity due to excess calories Status: Acute Plan I have discussed the patient's case and plan of care with Dr. Lee. Subjective Subjective Date/Time Seen: 03/22/22 11:27 Patient reports: no new complaints, still having pain, tolerating a regular diet, diarrhea (slowing down some) and afebrile Interval history: Patient seen after her EGD this morning. She is still having diarrhea but feels it is slowing down some at night. Still has diffuse abdominal pain and some banding tight upper abdominal pain aggravated by meals. No vomiting. No nausea at this time. Review of Systems Review of Systems: All systems reviewed & are unremarkable except as noted in HPI and below Exam Const: General: comfortable, no acute distress and awake Orientation/consciousness: patient oriented x3 GI: Inspection: non-distended and obesity GI Palp: Yes Soft to palpation, Yes Tenderness to palpation present (GI) (mild TTP RUQ, RLQ ), No Guarding due to palpation present (GI) and No Rebound tenderness present Auscultation: normal bowel sounds Neuro: General: moves all extremities and no focal motor deficits Extrem: General: normal to inspection and no edema Psych: Mental Status: mental status grossly normal Insight: Good insight present (Psych) Objective Data Vital Signs Vital Signs: Vital Signs - 24 hr 03/21/22 14:00 03/21/22 20:00 03/21/22 22:00 Temperature 97.8 F 96.5 F L Pulse Rate 89 70 Respiratory Rate 20 14 Blood Pressure 123/88 132/83 Pulse Oximetry 98 98 97 Oxygen Delivery Room Air 03/22/22 06:00 03/22/22 09:39 03/22/22 10:25 Temperature 96 F L 97.1 F L Pulse Rate 65 74 73 Respiratory Rate 14 18 18 Blood Pressure 125/68 136/85 128/75 Pulse Oximetry 97 99 99 Oxygen Delivery Room Air Room Air 03/22/22 10:35 03/22/22 10:45 03/22/22 08:00 Temperature Pulse Rate 63 59 L Respiratory Rate 17 15 Blood Pressure 118/70 122/80 Pulse Oximetry 99 99 Oxygen Delivery Room Air Room Air Room Air Intake/Output Intake/Output: Intake & Output 03/19/22 03/20/22 03/21/22 03/22/22 23:59 23:59 23:59 23:59 Intake Total 3320 2630 1730 675 Output Total 1300 2050 2650 650 Ba
--- NOTE | 2022-03-22 14:04 | PCNFU ---
Nutrition Follow-Up Complete: Inadequate energy intake related to altered GI function as evidenced by pt report of diarrhea x 1 month plus with decreased appetite and intake Goal:PO intake 75% of meals, Pt is meeting goal. continue with same goal Pt current nutrition is Low fat. Nutrition recommendation: Add Ensure Enlive daily if needed Last recorded weight is 133 kg - stable. Bowel Motility: +BM 03/20 Labs Reviewed: Alb:3.1, K:3.1, BUN:5 Meds Noted:LR, zofran Skin: WNL Additional Notes: pt diet advanced to low fat, pt reports fair intake, tolerating at this time. Will add Ensure Enlive daily as needed. Monitor intake, wt, labs. Follow up in 7 days.
--- NOTE | 2022-03-22 14:20 | P.PNIM_ITS ---
Progress Note: A&P Assessment and Plan (1) Colitis: Code(s): K52.9 - Noninfective gastroenteritis and colitis, unspecified Status: Acute Assessment and Plan: Patient presented with diarrhea since January to the ER on 03/17/2022. She reported when symptoms started, she attributed it to influenza virus that one of her children had. The loose stool persisted despite taking over the counter diarrhea medications. She also reports an episode of chills and fever prior to admission. * 03/16/22 CT show possible mild infectious or inflammatory colitis. * Patient had been on recent antibiotic use in January. * She was prescribed p.o. vancomycin by her PCP and took it for 5 days without significant improvement. Her cdiff test before starting antibiotics was lost by the outpatient lab and repeat cdiff was negative so she stopped taking the vancomycin. * Repeat C diff negative on admission. * IV Zosyn 3.375 mg Q6 hours started on 03/17/22 for colitis. * GI consulted and appreciate recommendations * Treated with IV fluids, stopped 03/19/22 when taking some PO. * Analgesics for pain control including scheduled Tylenol- pain still present and unchanged with [place] PRN. Changed to Percocet PRN on 03/21/22 * WBC 10 to 20 and trending to normal 5.8 on 03/21/22 * ESR 44, CRP 14.4 to 1.5 today 03/22/22 after antibiotics started. * Blood cultures no growth to date * 03/19/22 Colonoscopy with moderate localized colitis of ascending and transverse colon with erythematous and hypervascular changes. biopsies pending. Per GI, no classic changes that would be consistent with ulcerative colitis or Crohn's disease. * Lomotil 2 tabs Q8 hours scheduled started 03/21/22. * celiac panel pending. * stool elastase pending to rule out pancreatic insufficiency. * Hemoccult positive - GI already seeing patient * 03/21/22 Persistent abdominal pain and loose stool, especially after eating. Day 5 Zosyn IV. stool studies pending per GI. * 03/22/22 trial IV solu-medrol for possible IBD until pathology report released. (2) Cholelithiasis: Qualifiers: Biliary obstruction: without biliary obstruction Cholecystitis presence: without cholecystitis Cholelithiasis location: gallbladder Qualified Code(s): K80.20 - Calculus of gallbladder without cholecystitis without obstruction Code(s): K80.20 - Calculus of gallbladder without cholecystitis without obstruction Status: Acute Assessment and Plan: Abdominal US shows cholelithiasis, gallbladder distention and mildly dilated common bile duct. She also reports c/o increase pain and bloating after eating. Her abd pain starts in the RUQ and radiates to the LUQ in a band-like, cramping pain. The pain continues to be worse after eating and she states she has multiple loose stools after eating. * Question whether pain is secondary to gallbladder disease versus colitis. Loose stools after eating may suggest gallbladder disease? * General surgery consulted for evaluation and do not think urgent surgery is necessary. * GI already following. * Low fat diet when tolerating PO. * LFTs within normal limit. * No gallbladder wall thickening or melissa's sign to suggest acute c holecystitis, however, patient is also being treated with Zosyn currently. * Will check HIDA scan to evaluate gallbladder function (3) Diarrhea: Code(s): R19.7 - Diarrhea, unspecified Status: Acute Assessment and Plan: Patient presented with diarrhea since January to the ER on 03/17/2022. She reported when symptoms started, she attributed it to influenza virus that one of her children had. The loose stool persisted despite taking over the c
--- NOTE | 2022-03-22 14:20 | PM.IMPN ---
Progress Note: A&P Assessment and Plan (1) Colitis: Code(s): K52.9 - Noninfective gastroenteritis and colitis, unspecified Status: Acute Assessment and Plan: Patient presented with diarrhea since January to the ER on 03/17/2022. She reported when symptoms started, she attributed it to influenza virus that one of her children had. The loose stool persisted despite taking over the counter diarrhea medications. She also reports an episode of chills and fever prior to admission. 03/16/22 CT show possible mild infectious or inflammatory colitis. Patient had been on recent antibiotic use in January. She was prescribed p.o. vancomycin by her PCP and took it for 5 days without significant improvement. Her cdiff test before starting antibiotics was lost by the outpatient lab and repeat cdiff was negative so she stopped taking the vancomycin. Repeat C diff negative on admission. IV Zosyn 3.375 mg Q6 hours started on 03/17/22 for colitis. GI consulted and appreciate recommendations Treated with IV fluids, stopped 03/19/22 when taking some PO. Analgesics for pain control including scheduled Tylenol- pain still present and unchanged with [place] PRN. Changed to Percocet PRN on 03/21/22 WBC 10 to 20 and trending to normal 5.8 on 03/21/22 ESR 44, CRP 14.4 to 1.5 today 03/22/22 after antibiotics started. Blood cultures no growth to date 03/19/22 Colonoscopy with moderate localized colitis of ascending and transverse colon with erythematous and hypervascular changes. biopsies pending. Per GI, no classic changes that would be consistent with ulcerative colitis or Crohn's disease. Lomotil 2 tabs Q8 hours scheduled started 03/21/22. celiac panel pending. stool elastase pending to rule out pancreatic insufficiency. Hemoccult positive - GI already seeing patient 03/21/22 Persistent abdominal pain and loose stool, especially after eating. Day 5 Zosyn IV. stool studies pending per GI. 03/22/22 trial IV solu-medrol for possible IBD until pathology report released. (2) Cholelithiasis: Qualifiers: Biliary obstruction: without biliary obstruction Cholecystitis presence: without cholecystitis Cholelithiasis location: gallbladder Qualified Code(s): K80.20 - Calculus of gallbladder without cholecystitis without obstruction Code(s): K80.20 - Calculus of gallbladder without cholecystitis without obstruction Status: Acute Assessment and Plan: Abdominal US shows cholelithiasis, gallbladder distention and mildly dilated common bile duct. She also reports c/o increase pain and bloating after eating. Her abd pain starts in the RUQ and radiates to the LUQ in a band-like, cramping pain. The pain continues to be worse after eating and she states she has multiple loose stools after eating. Question whether pain is secondary to gallbladder disease versus colitis. Loose stools after eating may suggest gallbladder disease? General surgery consulted for evaluation and do not think urgent surgery is necessary. GI already following. Low fat diet when tolerating PO. LFTs within normal limit. No gallbladder wall thickening or melissa's sign to suggest acute cholecystitis, however, patient is also being treated with Zosyn currently. Will check HIDA scan to evaluate gallbladder function (3) Diarrhea: Code(s): R19.7 - Diarrhea, unspecified Status: Acute Assessment and Plan: Patient presented with diarrhea since January to the ER on 03/17/2022. She reported when symptoms started, she attributed it to influenza virus that one of her children had. The loose stool persisted despite taking over the counter diarrhea medications. She also reports an episode of chills and fever prior to admission. 03/16/22 CT show possible mild infectious or inflammatory colitis. 03/19/22 Colonoscopy with moderate localized colitis of ascending and transverse colon with erythematous and hypervascular changes. biopsies pending. Abd US with
[2022-03-22] MEDS: oxyCODONE HCL (*CRX) 2.5 MG TAB IR PO (15:55)
[2022-03-22] MEDS: ONDANSETRON INJ 4 MG/2 ML VIAL IV PUSH (15:58)
[2022-03-22] MEDS: TOPIRAMATE 100 MG TABLET PO (20:19)
[2022-03-23] MEDS: ACETAMINOPHEN 325 MG TABLET 650 MG PO ×5 (01:18→20:05)
[2022-03-23] MEDS: oxyCODONE/ACETAMINOPHEN (*CRX) 10-325 MG TABLET 1 TAB PO (02:21)
[2022-03-23] MEDS: SIMETHICONE 80 MG TAB.CHEW PO (02:21)
[2022-03-23 06:33] LABS: Hematocrit 40.9 % (37.0-47.0); Hemoglobin 12.6 g/dL (12.0-15.0); Mean Corpuscular HGB Conc 30.8 g/dl (32-36); Mean Corpuscular Hemoglobin 27.2 pg (26-34); Mean Corpuscular Volume 88.3 fl (80-100); Mean Platelet Volume 10.2 fl (7.4-10.4); Platelet Count Result 305 k/mm3 (150-375); Red Blood Count 4.63 M/mm3 (4.2-5.4); Red Cell Distribution Width 15.2 % (11.5-14.5)
[2022-03-23 06:49] VITALS: BP 125/71; PULSE 70; RESP 16; TEMP 36.7; O2SAT 94
[2022-03-23 06:49] LABS: Alanine Aminotransferase 35 U/L (6-35); Albumin Level 3.4 g/dL (3.5-5.1); Alkaline Phosphatase 72 U/L (38-126); Anion Gap 5 mmol/L (8-16); Aspartate Amino Transferase 49 U/L (14-36); Bilirubin,Total 0.3 mg/dL (0.2-1.3); Blood Urea Nitrogen 6 mg/dL (7-17); Calcium 8.2 mg/dL (8.4-10.2); Carbon Dioxide 23 mmol/L (22-30); Chloride 110 mmol/L (98-107); Estimated CRCL calculation 122 ml/min; Estimated Glomerular Filt Rate > 60; Glucose 161 mg/dL (65-110); Potassium 4.1 mmol/L (3.4-5.0); Sodium 138 mmol/L (137-145)
[2022-03-23] MEDS: GABAPENTIN 400 MG CAPSULE 800 MG PO ×3 (09:02→20:07)
[2022-03-23] MEDS: GABAPENTIN 100 MG CAPSULE PO ×3 (09:02→20:07)
[2022-03-23] MEDS: APIXABAN 2.5 MG TABLET PO ×2 (09:02→20:06)
[2022-03-23] MEDS: DULoxetine HCL 30 MG CAPSULE.DR PO (09:02)
[2022-03-23] MEDS: TOPIRAMATE 25 MG TABLET PO (09:02)
[2022-03-23] MEDS: methylPREDNISolone SOD SUCC 40 MG VIAL IV PUSH ×3 (09:03→18:48)
[2022-03-23] MEDS: DULoxetine HCL 60 MG CAPSULE.DR PO (09:04)
[2022-03-23] MEDS: DIPHENOXYLATE/ATROPINE (*CRX) 2.5 MG TABLET 2 TABLET PO ×3 (09:15→21:33)
[2022-03-23] MEDS: DICYCLOMINE HCL INJ 20 MG/2 ML VIAL IM (09:15)
[2022-03-23] MEDS: BACLOFEN 10 MG TABLET 20 MG PO ×3 (09:15→20:14)
--- NOTE | 2022-03-23 11:04 | WPDANESPN ---
Anes - Prog Note Post-Op Date/Time: 03/23/22 11:04 Cardiovascular status: normal Respiratory status: normal Airway patency: baseline Mental status: baseline Post-Op hydration status: normal Vital Signs: Last Vital Signs Temp 36.7 C 03/23/22 06:49 Pulse 70 03/23/22 06:49 Resp 16 03/23/22 06:49 BP 125/71 03/23/22 06:49 Pulse Ox 94 03/23/22 06:49 O2 Del Method Room Air 03/22/22 20:00 Pain Score (VAS): 0 I/O: Intake & Output 03/22/22 03/23/22 03/23/22 23:59 07:59 15:59 Intake Total 590 850 170 Output Total 2250 Balance 590 -1400 170 Laboratory Tests 03/23/22 06:13 03/23/22 06:13 03/22/22 03/23/22 03/23/22 12:11 06:13 06:13 WBC 11.0 H RBC 4.63 Hgb 12.6 Hct 40.9 MCV 88.3 MCH 27.2 MCHC 30.8 L RDW 15.2 H Plt Count 305 MPV 10.2 Sodium 138 Potassium 4.1 Chloride 110 H Carbon Dioxide 23 Anion Gap 5 L BUN 6 L Creatinine 0.70 Estim Creat Clear Calc 122 Estimated GFR > 60 Glucose 161 H Calcium 8.2 L Total Bilirubin 0.3 AST 49 H ALT 35 Alkaline Phosphatase 72 C-Reactive Protein 1.5 H Total Protein 6.0 L Albumin 3.4 L Microbiology 03/17/22 12:49 Blood Blood Culture - Final 03/17/22 12:49 Blood Blood Culture - Final Post-procedural complaints: none Patient Feedback: Patient satisfied with anesthetic care.
--- NOTE | 2022-03-23 12:45 | WPDGIPROGNO ---
Progress Note: A&P Assessment and Plan (1) Diarrhea: Code(s): R19.7 - Diarrhea, unspecified Status: Acute Assessment and Plan: I suspect that she has inflammatory bowel disease. C difficile colitis remains a possibility, however she did not have risk factors for that. Unfortunately when she was tested she had already started taking vancomycin. repeat stool for C diff is again negative. I am fairly certain now that she does not have an infectious colitis. I will start her on Lomotil 2 tabs q.8 hours for symptomatic relief. will check her for celiac disease, particularly given the fact she has had weight loss and also was anemic and as low albumin Will also check stool for elastase to rule out pancreatic insufficiency, although she does not have the usual risk factors 03/23/2022 all of the above mentioned tests are still pending. I will also order a fecal fat to rule out malabsorption of fat (2) Colitis: Code(s): K52.9 - Noninfective gastroenteritis and colitis, unspecified Status: Acute Assessment and Plan: She is scheduled for colonoscopy to be done tomorrow. I discussed with her the prep I told her that even though she has diarrhea will need to give her some bowel prep because of the likelihood of mucoid thick stool in the ascending colon 03/21/2022 still having severe diarrhea. I discussed with her the results of her colonoscopy, patchy inflammation in the right colon only. No classic changes that would be consistent with ulcerative colitis or Crohn's disease. Histologically, the changes are not consistent with ulcerative colitis, no cryptitis seen. It also does not look like Crohn's disease he does however have a sister with Crohn's disease which raises the probability of that. 03/23/2022 due to the fact that she has some sort of colitis and appears not to be infectious, I have started her on Solu-Medrol. Unless it is a coincidence, her symptoms have improved somewhat in the last 24 hours (3) BMI 50.0-59.9, adult: Code(s): Z68.43 - Body mass index [BMI] 50.0-59.9, adult Status: Acute Assessment and Plan: she actually has lost about 15 lb with the present illness (4) Hypoalbuminemia: Code(s): E88.09 - Other disorders of plasma-protein metabolism, not elsewhere classified Status: Acute Assessment and Plan: albumin is low at 3.1. This is consistent with her history of the weight loss and poor oral intake. I did discuss her diet history with her. She eats fairly round diet although low in fiber. She has symptoms of diarrhea and more recently nausea or cramping, no matter what she eats. (5) Anemia: Code(s): D64.9 - Anemia, unspecified Status: Acute Assessment and Plan: Her hemoglobin in January at about the time her symptoms began was 13.9. It is now down to 11.9. I should add that she has not had blood in her stools. MCV is normal, although I am again suspicious that this could be a malabsorption problem such as celiac disease. (6) Abdominal pain: Code(s): R10.9 - Unspecified abdominal pain Status: Acute Assessment and Plan: she continues to have discomfort in the mid to upper abdomen and it was worse after eating dinner last night; she states that ultrasound was discussed but had not yet been ordered. I will go ahead and order that now. 03/23/22 results of endoscopy discussed. Biopsies for celiac disease are still pending. H pylori was negative. Much of her pain I suspect is biliary. She had a HIDA scan. Subjective Date/time seen: 03/23/22 12:45 The last 24 hours, her stools have become less watery. They are still not well formed, very soft. She is still having pain in the upper half of her abdomen after meals, often a tight band. She has just come back from having a HIDA scan. We again discussed her illness. I explained that we are still awaiting all the serology for inflammatory bowel dise
--- NOTE | 2022-03-23 13:20 | P.PNIM_ITS ---
Progress Note: A&P Assessment and Plan (1) Colitis: Code(s): K52.9 - Noninfective gastroenteritis and colitis, unspecified Status: Acute Assessment and Plan: Patient presented with diarrhea since January to the ER on 03/17/2022. She reported when symptoms started, she attributed it to influenza virus that one of her children had. The loose stool persisted despite taking over the counter diarrhea medications. She also reports an episode of chills and fever prior to admission. * 03/16/22 CT show possible mild infectious or inflammatory colitis. * Patient had been on recent antibiotic use in January. * She was prescribed p.o. vancomycin by her PCP and took it for 5 days without significant improvement. Her cdiff test before starting antibiotics was lost by the outpatient lab and repeat cdiff was negative so she stopped taking the vancomycin. * Repeat C diff negative on admission. * IV Zosyn 3.375 mg Q6 hours started on 03/17/22 for colitis. * GI consulted and appreciate recommendations * Treated with IV fluids, stopped 03/19/22 when taking some PO. * Analgesics for pain control including scheduled Tylenol- pain still present and unchanged with [place] PRN. Changed to Percocet PRN on 03/21/22 * WBC 10 to 20 and trending to normal 5.8 on 03/21/22 * ESR 44, CRP 14.4 to 1.5 today 03/22/22 after antibiotics started. * Blood cultures no growth to date * 03/19/22 Colonoscopy with moderate localized colitis of ascending and transverse colon with erythematous and hypervascular changes. biopsies pending. Per GI, no classic changes that would be consistent with ulcerative colitis or Crohn's disease. * Lomotil 2 tabs Q8 hours scheduled started 03/21/22. * celiac panel pending. * stool elastase pending to rule out pancreatic insufficiency. * Hemoccult positive - GI already seeing patient * 03/21/22 Persistent abdominal pain and loose stool, especially after eating. Day 5 Zosyn IV. stool studies pending per GI. * 03/22/22 trial IV solu-medrol for possible IBD until pathology report released. * 03/23/22 stools slowing. day 2 solu-medrol. (2) Cholelithiasis: Qualifiers: Biliary obstruction: without biliary obstruction Cholecystitis presence: without cholecystitis Cholelithiasis location: gallbladder Qualified Code(s): K80.20 - Calculus of gallbladder without cholecystitis without obstruction Code(s): K80.20 - Calculus of gallbladder without cholecystitis without obstruction Status: Acute Assessment and Plan: Abdominal US shows cholelithiasis, gallbladder distention and mildly dilated common bile duct. She also reports c/o increase pain and bloating after eating. Her abd pain starts in the RUQ and radiates to the LUQ in a band-like, cramping pain. The pain continues to be worse after eating and she states she has multiple loose stools after eating. * Question whether pain is secondary to gallbladder disease versus colitis. Loose stools after eating may suggest gallbladder disease? * General surgery consulted for evaluation and do not think urgent surgery is necessary. * GI already following. * Low fat diet when tolerating PO. * LFTs within normal limit. * No gallbladder wall thickening or melissa's sign to suggest acute cholecystitis, however, patient is also being treated with Zosyn currently. * Will check HIDA scan to evaluate gallbladder function * 03/23/22 HIDA results pending. She had severe abdominal bloating and pain after dinner last night. She will trial bentyl before meals. (3) Diarrhea: Code(s): R19.7 - Diarrhea, unspecified Status: Acute Assessment and Plan: Patient presented with diarrhea sin
--- NOTE | 2022-03-23 13:20 | PM.IMPN ---
Progress Note: A&P Assessment and Plan (1) Colitis: Code(s): K52.9 - Noninfective gastroenteritis and colitis, unspecified Status: Acute Assessment and Plan: Patient presented with diarrhea since January to the ER on 03/17/2022. She reported when symptoms started, she attributed it to influenza virus that one of her children had. The loose stool persisted despite taking over the counter diarrhea medications. She also reports an episode of chills and fever prior to admission. 03/16/22 CT show possible mild infectious or inflammatory colitis. Patient had been on recent antibiotic use in January. She was prescribed p.o. vancomycin by her PCP and took it for 5 days without significant improvement. Her cdiff test before starting antibiotics was lost by the outpatient lab and repeat cdiff was negative so she stopped taking the vancomycin. Repeat C diff negative on admission. IV Zosyn 3.375 mg Q6 hours started on 03/17/22 for colitis. GI consulted and appreciate recommendations Treated with IV fluids, stopped 03/19/22 when taking some PO. Analgesics for pain control including scheduled Tylenol- pain still present and unchanged with [place] PRN. Changed to Percocet PRN on 03/21/22 WBC 10 to 20 and trending to normal 5.8 on 03/21/22 ESR 44, CRP 14.4 to 1.5 today 03/22/22 after antibiotics started. Blood cultures no growth to date 03/19/22 Colonoscopy with moderate localized colitis of ascending and transverse colon with erythematous and hypervascular changes. biopsies pending. Per GI, no classic changes that would be consistent with ulcerative colitis or Crohn's disease. Lomotil 2 tabs Q8 hours scheduled started 03/21/22. celiac panel pending. stool elastase pending to rule out pancreatic insufficiency. Hemoccult positive - GI already seeing patient 03/21/22 Persistent abdominal pain and loose stool, especially after eating. Day 5 Zosyn IV. stool studies pending per GI. 03/22/22 trial IV solu-medrol for possible IBD until pathology report released. 03/23/22 stools slowing. day 2 solu-medrol. (2) Cholelithiasis: Qualifiers: Biliary obstruction: without biliary obstruction Cholecystitis presence: without cholecystitis Cholelithiasis location: gallbladder Qualified Code(s): K80.20 - Calculus of gallbladder without cholecystitis without obstruction Code(s): K80.20 - Calculus of gallbladder without cholecystitis without obstruction Status: Acute Assessment and Plan: Abdominal US shows cholelithiasis, gallbladder distention and mildly dilated common bile duct. She also reports c/o increase pain and bloating after eating. Her abd pain starts in the RUQ and radiates to the LUQ in a band-like, cramping pain. The pain continues to be worse after eating and she states she has multiple loose stools after eating. Question whether pain is secondary to gallbladder disease versus colitis. Loose stools after eating may suggest gallbladder disease? General surgery consulted for evaluation and do not think urgent surgery is necessary. GI already following. Low fat diet when tolerating PO. LFTs within normal limit. No gallbladder wall thickening or melissa's sign to suggest acute cholecystitis, however, patient is also being treated with Zosyn currently. Will check HIDA scan to evaluate gallbladder function 03/23/22 HIDA results pending. She had severe abdominal bloating and pain after dinner last night. She will trial bentyl before meals. (3) Diarrhea: Code(s): R19.7 - Diarrhea, unspecified Status: Acute Assessment and Plan: Patient presented with diarrhea since January to the ER on 03/17/2022. She reported when symptoms started, she attributed it to influenza virus that one of her children had. The loose stool persisted despite taking over the counter diarrhea medications. She also reports an episode of chills and fever prior to admission. 03/16/22 CT show possible mild infectious or inf
[2022-03-23 14:00] VITALS: BP 108/71; PULSE 66; RESP 18; TEMP 36.3; O2SAT 96
[2022-03-23] MEDS: DICYCLOMINE HCL 10 MG CAPSULE 20 MG PO ×2 (14:08→20:04)
[2022-03-23 20:00] VITALS: PULSE 69; RESP 18; O2SAT 100
[2022-03-23] MEDS: TOPIRAMATE 100 MG TABLET PO (20:09)
[2022-03-23 21:33] VITALS: BP 106/72; PULSE 69; RESP 18; TEMP 36.8; O2SAT 100
[2022-03-23 23:20] VITALS: O2SAT 98
[2022-03-24] MEDS: ACETAMINOPHEN 325 MG TABLET 650 MG PO ×6 (01:11→20:13)
[2022-03-24] MEDS: methylPREDNISolone SOD SUCC 40 MG VIAL IV PUSH ×3 (01:11→12:39)
[2022-03-24 05:32] VITALS: BP 133/85; PULSE 47; RESP 18; TEMP 36.3; O2SAT 96
[2022-03-24] MEDS: DIPHENOXYLATE/ATROPINE (*CRX) 2.5 MG TABLET 2 TABLET PO ×3 (06:15→22:23)
[2022-03-24 06:41] LABS: Basophils Percent Auto 0.2 % (0.2-1.2); Hematocrit 41.8 % (37.0-47.0); Hemoglobin 12.5 g/dL (12.0-15.0); Immature Granulocyte Absolute 0.16 K/mm3 (0.00-0.031); Immature Granulocyte Percent A 0.9 % (0-0.5); Lymphocytes Absolute Auto 1.84 K/mm3 (0.9-3.2); Lymphocytes Percent Auto 10.8 % (18.3-44.2); Mean Corpuscular HGB Conc 29.9 g/dl (32-36); Mean Corpuscular Hemoglobin 27.1 pg (26-34); Mean Corpuscular Volume 90.7 fl (80-100); Mean Platelet Volume 10.5 fl (7.4-10.4); Monocytes Absolute Auto 0.4 K/mm3 (0.1-0.6); Monocytes Percent Auto 2.5 % (2.6-8.5); Neutrophils Absolute Auto 14.7 K/mm3 (1.3-6.7); Neutrophils Percent Auto 85.6 % (45.5-73.1); Platelet Count Result 326 k/mm3 (150-375); Red Blood Count 4.61 M/mm3 (4.2-5.4); Red Cell Distribution Width 15.9 % (11.5-14.5); White Blood Count 17.1 K/mm3 (4.5-10.0)
[2022-03-24 06:52] LABS: Alanine Aminotransferase 56 U/L (6-35); Albumin Level 3.7 g/dL (3.5-5.1); Alkaline Phosphatase 78 U/L (38-126); Anion Gap 7 mmol/L (8-16); Aspartate Amino Transferase 54 U/L (14-36); Bilirubin,Total 0.2 mg/dL (0.2-1.3); Blood Urea Nitrogen 14 mg/dL (7-17); Calcium 8.6 mg/dL (8.4-10.2); Carbon Dioxide 21 mmol/L (22-30); Chloride 111 mmol/L (98-107); Estimated CRCL calculation 122 ml/min; Estimated Glomerular Filt Rate > 60; Glucose 157 mg/dL (65-110); Potassium 4.3 mmol/L (3.4-5.0); Sodium 139 mmol/L (137-145)
[2022-03-24] MEDS: GABAPENTIN 400 MG CAPSULE 800 MG PO ×3 (09:38→20:13)
[2022-03-24] MEDS: GABAPENTIN 100 MG CAPSULE PO ×3 (09:38→20:13)
[2022-03-24] MEDS: DULoxetine HCL 60 MG CAPSULE.DR PO (09:39)
[2022-03-24] MEDS: DULoxetine HCL 30 MG CAPSULE.DR PO (09:39)
[2022-03-24] MEDS: TOPIRAMATE 25 MG TABLET PO (09:39)
[2022-03-24] MEDS: APIXABAN 2.5 MG TABLET PO ×2 (09:39→20:13)
[2022-03-24] MEDS: BACLOFEN 10 MG TABLET 20 MG PO ×3 (09:45→20:13)
[2022-03-24] MEDS: AMOXICILLIN/CLAVULANATE K 875-125 MG TAB 1 TABLET PO ×2 (12:39→20:14)
[2022-03-24 14:00] VITALS: BP 117/68; PULSE 57; RESP 20; TEMP 36.3; O2SAT 97
--- NOTE | 2022-03-24 15:26 | P.PNIM_ITS ---
Progress Note: A&P Assessment and Plan (1) Colitis: Code(s): K52.9 - Noninfective gastroenteritis and colitis, unspecified Status: Acute Assessment and Plan: Patient presented with diarrhea since January to the ER on 03/17/2022. She reported when symptoms started, she attributed it to influenza virus that one of her children had. The loose stool persisted despite taking over the counter diarrhea medications. She also reports an episode of chills and fever prior to admission. * 03/16/22 CT show possible mild infectious or inflammatory colitis. * She was prescribed p.o. vancomycin by her PCP and took it for 5 days without significant improvement. Her cdiff test before starting antibiotics was lost by the outpatient lab and repeat cdiff was negative so she stopped taking the vancomycin. * Repeat C diff negative on admission. * 03/17/22 IV Zosyn 3.375 mg Q6 hours. Antibiotics stopped 03/24/22. * GI consulted and appreciate recommendations * Treated with IV fluids and stopped 03/19/22 when taking PO. * Analgesics for pain control including scheduled Tylenol and Percocet PRN on 03/21/22. Bentyl 20 mg AC/HS PRN abd cramping. * WBC 10 to 20 and trending to normal 5.8 on 03/21/22 * ESR 44, CRP 14.4 to 1.5 today 03/22/22 after antibiotics started. * Blood cultures no growth to date * 03/19/22 Colonoscopy with moderate localized colitis of ascending and transverse colon with erythematous and hypervascular changes. biopsies negative. Per GI, no classic changes that would be consistent with ulcerative colitis or Crohn's disease. * Lomotil 2 tabs Q8 hours scheduled started 03/21/22. * stool calprotectin r/o celiac disease pending. * stool elastase pending to rule out pancreatic insufficiency. * Hemoccult positive and likely secondary to colitis. * 03/21/22 Persistent abdominal pain and loose stool, especially after eating. Day 5 Zosyn IV. stool studies pending per GI. * 03/22/22 trial IV solu-medrol for possible IBD until pathology report released. * 03/23/22 stools slowing. day 2 solu-medrol. * 03/24/22 transitioned to budesonide PO per GI. Patient afebrile and Leukocytosis (WBC 17) likely secondary to systemic steroids. (2) Cholelithiasis: Qualifiers: Biliary obstruction: without biliary obstruction Cholecystitis presence: without cholecystitis Cholelithiasis location: gallbladder Qualified Code(s): K80.20 - Calculus of gallbladder without cholecystitis without obstruction Code(s): K80.20 - Calculus of gallbladder without cholecystitis without obstruction Status: Acute Assessment and Plan: Abdominal US shows cholelithiasis, gallbladder distention and mildly dilated common bile duct. She also reports c/o increase pain and bloating after eating. Her abd pain starts in the RUQ and radiates to the LUQ in a band-like, cramping pain. The pain continues to be worse after eating and she states she has multiple loose stools after eating. * Question whether pain is secondary to gallbladder disease versus colitis. Loose stools after eating may suggest gallbladder disease? * General surgery consulted for evaluation and do not think urgent surgery is necessary. * GI already following. * Low fat diet when tolerating PO. * LFTs within normal limit. * No gallbladder wall thickening or melissa's sign to suggest acute cholecystitis, however, patient is also being treated with Zosyn currently. * Will check HIDA scan to evaluate gallbladder function * 03/23/22 HIDA results with GBEF 27% mildly reduced and probable chronic cholecystitis. General surgery recommends outpatient follow-up when colitis resolved. * 03/24/22 HIDA scan results discussed with the p
--- NOTE | 2022-03-24 15:34 | WPDGIPROGNO ---
Progress Note: A&P Assessment and Plan (1) Colitis: Code(s): K52.9 - Noninfective gastroenteritis and colitis, unspecified Status: Acute Assessment and Plan: found to have some colitis in right colon will try budesonide pending ibd panel, elastase stool and celiac serology (duodenal bx negative) (2) Diarrhea: Code(s): R19.7 - Diarrhea, unspecified Status: Acute Assessment and Plan: improving will give a trial of budesonide stool negative for infection (3) Abdominal pain: Code(s): R10.9 - Unspecified abdominal pain Status: Acute (4) Cholelithiasis: Qualifiers: Cholelithiasis location: gallbladder Cholecystitis presence: without cholecystitis Biliary obstruction: without biliary obstruction Qualified Code(s): K80.20 - Calculus of gallbladder without cholecystitis without obstruction Code(s): K80.20 - Calculus of gallbladder without cholecystitis without obstruction Status: Acute Assessment and Plan: found in ultrasound (5) Anemia: Code(s): D64.9 - Anemia, unspecified Status: Acute Assessment and Plan: h/h normal now Subjective Date/time seen: 03/24/22 15:34 Interval history: yesterday night had diarrhea again but better since steroids Review of Systems Review of Systems: All systems reviewed & are unremarkable except as noted in HPI and below Exam Const: General: healthy appearing, comfortable and alert Nutritional Appearance: overweight HENMT: Face/Nose/Sinus: Normal nares present Eyes: General: appearance normal, both eyes and all related structures Neck: Neck: supple Resp: Effort & Inspection: normal respiratory effort Cardio: Rate: regular rate GI: GI Palp: Yes Soft to palpation, Yes Tenderness to palpation present (GI) ( Mild nonlocalizing upper abdomen) and Yes No hepatosplenomegaly present Skin: General skin exam: normal color Neuro: Speech: normal speech Extrem: General: normal to inspection Psych: Mental Status: mental status grossly normal Objective Data Vital Signs Vital Signs: Vital Signs - 24 hr 03/23/22 21:33 03/23/22 20:00 03/24/22 05:32 Temperature 98.2 F 97.4 F L Pulse Rate 69 69 47 L Respiratory Rate 18 18 18 Blood Pressure 106/72 133/85 Pulse Oximetry 100 100 96 Oxygen Delivery Room Air 03/23/22 23:20 03/24/22 08:00 03/24/22 14:00 Temperature 97.3 F L Pulse Rate 57 L Respiratory Rate 20 Blood Pressure 117/68 Pulse Oximetry 98 97 Oxygen Delivery Room Air Room Air Intake/Output Intake/Output: Intake & Output 03/21/22 03/22/22 03/23/22 03/24/22 23:59 23:59 23:59 23:59 Intake Total 1730 1555 1790 1070 Output Total 2650 650 3350 200 Balance -920 905 -1560 870 Meds/Results Medications: Active Medications Generic Name Dose Route Start Last Admin Trade Name Freq PRN Reason Stop Dose Admin Acetaminophen 650 mg 03/22/22 17:00 03/24/22 12:39 Acetaminophen 325 Mg Tablet PO 650 mg Q4H SONYA Administration Amoxicillin/Clavulanate Potassium 1 tablet 03/24/22 10:00 03/24/22 12:39 Amoxicillin/Clavulanate K 875-125 Mg Tab PO 03/24/22 21:01 1 tablet Q12HR SONYA Administration Apixaban 2.5 mg 03/23/22 09:00 03/24/22 09:39 Apixaban 2.5 Mg Tablet PO 2.5 mg Q12HR SONYA Administration Baclofen 20 mg 03/17/22 21:00 03/24/22 12:39 Baclofen 10 Mg Tablet PO 20 mg SONYA Administration Budesonide 9 mg 03/25/22 09:00 Budesonide 3 Mg Cap.Sr.24h PO QAM SONYA Dicyclomine HCl 20 mg 03/23/22 13:19 03/23/22 20:04 Dicyclomine Hcl 10 Mg Capsule PO 20 mg ACHS PRN Administration Abdominal Cramping Diphenoxylate HCl/Atropine 2 tablet 03/20/22 07:30 03/24/22 06:15 Diphenoxylate/Atropine (*Crx) 2.5 Mg Tablet PO 2 tablet Q8HR SONYA Administration Duloxetine HCl 30 mg 03/18/22 09:00 03/24/22 09:39 Duloxetine Hcl 30 Mg Capsule.Dr PO 30 mg DAILY SONYA Administrati
[2022-03-24 20:00] VITALS: PULSE 58; RESP 16; O2SAT 99
[2022-03-24] MEDS: DICYCLOMINE HCL 10 MG CAPSULE 20 MG PO (20:13)
[2022-03-24] MEDS: TOPIRAMATE 100 MG TABLET PO (20:14)
[2022-03-24 21:30] VITALS: BP 117/81; PULSE 53; RESP 18; TEMP 36.5; O2SAT 98
[2022-03-25] MEDS: ACETAMINOPHEN 325 MG TABLET 650 MG PO ×6 (01:42→20:10)
[2022-03-25] MEDS: DIPHENOXYLATE/ATROPINE (*CRX) 2.5 MG TABLET 2 TABLET PO ×3 (05:22→22:27)
[2022-03-25 06:00] VITALS: BP 133/75; PULSE 49; RESP 18; TEMP 36.3; O2SAT 99
[2022-03-25 06:18] LABS: Basophils Percent Auto 0.2 % (0.2-1.2); Eosinophils Percent Auto 0.2 % (0-4.4); Hematocrit 39.7 % (37.0-47.0); Hemoglobin 11.8 g/dL (12.0-15.0); Immature Granulocyte Absolute 0.16 K/mm3 (0.00-0.031); Immature Granulocyte Percent A 1.3 % (0-0.5); Lymphocytes Absolute Auto 3.35 K/mm3 (0.9-3.2); Lymphocytes Percent Auto 26.9 % (18.3-44.2); Mean Corpuscular HGB Conc 29.7 g/dl (32-36); Mean Corpuscular Hemoglobin 27.1 pg (26-34); Mean Corpuscular Volume 91.3 fl (80-100); Mean Platelet Volume 10.8 fl (7.4-10.4); Monocytes Absolute Auto 0.8 K/mm3 (0.1-0.6); Monocytes Percent Auto 6.3 % (2.6-8.5); Neutrophils Absolute Auto 8.1 K/mm3 (1.3-6.7); Neutrophils Percent Auto 65.1 % (45.5-73.1); Platelet Count Result 270 k/mm3 (150-375); Red Blood Count 4.35 M/mm3 (4.2-5.4); White Blood Count 12.5 K/mm3 (4.5-10.0)
[2022-03-25 06:33] LABS: Alanine Aminotransferase 64 U/L (6-35); Albumin Level 3.5 g/dL (3.5-5.1); Alkaline Phosphatase 66 U/L (38-126); Anion Gap 5 mmol/L (8-16); Aspartate Amino Transferase 47 U/L (14-36); Bilirubin,Total 0.2 mg/dL (0.2-1.3); Blood Urea Nitrogen 20 mg/dL (7-17); CRP 0.7 mg/dL (<1.0); Calcium 8.2 mg/dL (8.4-10.2); Carbon Dioxide 24 mmol/L (22-30); Chloride 109 mmol/L (98-107); Estimated CRCL calculation 122 ml/min; Estimated Glomerular Filt Rate > 60; Glucose 108 mg/dL (65-110); Potassium 3.6 mmol/L (3.4-5.0); Sodium 138 mmol/L (137-145)
[2022-03-25] MEDS: BUDESONIDE 3 MG CAP.SR.24H 9 MG PO (09:28)
[2022-03-25] MEDS: GABAPENTIN 100 MG CAPSULE PO ×3 (09:29→20:11)
[2022-03-25] MEDS: TOPIRAMATE 25 MG TABLET PO (09:30)
[2022-03-25] MEDS: DICYCLOMINE HCL 10 MG CAPSULE 20 MG PO ×3 (09:30→20:10)
[2022-03-25] MEDS: DULoxetine HCL 60 MG CAPSULE.DR PO (09:31)
[2022-03-25] MEDS: GABAPENTIN 400 MG CAPSULE 800 MG PO ×3 (09:32→20:11)
[2022-03-25] MEDS: DULoxetine HCL 30 MG CAPSULE.DR PO (09:32)
[2022-03-25] MEDS: BACLOFEN 10 MG TABLET 20 MG PO ×3 (09:37→20:09)
--- NOTE | 2022-03-25 11:45 | WPDGIPROGNO ---
Progress Note: A&P Assessment and Plan (1) Colitis: Code(s): K52.9 - Noninfective gastroenteritis and colitis, unspecified Status: Acute Assessment and Plan: found to have some colitis in right colon started today on budesonide and she is already on lomotil if diarrhea persists will add questran pending ibd panel, elastase stool and celiac serology (duodenal bx negative) Dr Craft returns tomorrow (2) Diarrhea: Code(s): R19.7 - Diarrhea, unspecified Status: Acute Assessment and Plan: colitis, started today on budesonide stool negative for infection pending furthrr work up (3) Abdominal pain: Code(s): R10.9 - Unspecified abdominal pain Status: Acute (4) Cholelithiasis: Qualifiers: Cholelithiasis location: gallbladder Cholecystitis presence: without cholecystitis Biliary obstruction: without biliary obstruction Qualified Code(s): K80.20 - Calculus of gallbladder without cholecystitis without obstruction Code(s): K80.20 - Calculus of gallbladder without cholecystitis without obstruction Status: Acute Assessment and Plan: found in ultrasound (5) Anemia: Code(s): D64.9 - Anemia, unspecified Status: Acute Assessment and Plan: h/h stable Subjective Date/time seen: 03/25/22 11:45 Interval history: eating but still with diarrhea Review of Systems Review of Systems: All systems reviewed & are unremarkable except as noted in HPI and below Exam Const: General: healthy appearing, comfortable and alert Nutritional Appearance: overweight HENMT: Face/Nose/Sinus: Normal nares present Eyes: General: appearance normal, both eyes and all related structures Neck: Neck: supple Resp: Effort & Inspection: normal respiratory effort Cardio: Rate: regular rate GI: GI Palp: Yes Soft to palpation, Yes Tenderness to palpation present (GI) ( Mild nonlocalizing upper abdomen) and Yes No hepatosplenomegaly present Skin: General skin exam: normal color Neuro: Speech: normal speech Extrem: General: normal to inspection Psych: Mental Status: mental status grossly normal Objective Data Vital Signs Vital Signs: Vital Signs - 24 hr 03/24/22 14:00 03/24/22 21:30 03/24/22 20:00 Temperature 97.3 F L 97.7 F Pulse Rate 57 L 53 L 58 L Respiratory Rate 20 18 16 Blood Pressure 117/68 117/81 Pulse Oximetry 97 98 99 Oxygen Delivery Room Air 03/25/22 06:00 03/25/22 08:00 Temperature 97.3 F L Pulse Rate 49 L Respiratory Rate 18 Blood Pressure 133/75 Pulse Oximetry 99 Oxygen Delivery Room Air Intake/Output Intake/Output: Intake & Output 03/22/22 03/23/22 03/24/22 03/25/22 23:59 23:59 23:59 23:59 Intake Total 1555 1790 1860 1280 Output Total 650 3350 1200 700 Balance 905 -1560 660 580 Meds/Results Medications: Active Medications Generic Name Dose Route Start Last Admin Trade Name Freq PRN Reason Stop Dose Admin Acetaminophen 650 mg 03/22/22 17:00 03/25/22 09:28 Acetaminophen 325 Mg Tablet PO 650 mg Q4H SONYA Administration Apixaban 2.5 mg 03/23/22 09:00 03/25/22 09:31 Apixaban 2.5 Mg Tablet PO Not Given Q12HR SONYA Baclofen 20 mg 03/17/22 21:00 03/25/22 09:37 Baclofen 10 Mg Tablet PO 20 mg SONYA Administration Budesonide 9 mg 03/25/22 09:00 03/25/22 09:28 Budesonide 3 Mg Cap.Sr.24h PO 9 mg QAM SONYA Administration Dicyclomine HCl 20 mg 03/23/22 13:19 03/25/22 09:30 Dicyclomine Hcl 10 Mg Capsule PO 20 mg ACHS PRN Administration Abdominal Cramping Diphenoxylate HCl/Atropine 2 tablet 03/20/22 07:30 03/25/22 05:22 Diphenoxylate/Atropine (*Crx) 2.5 Mg Tablet PO 2 tablet Q8HR SONYA Administration Duloxetine HCl 30 mg 03/18/22 09:00 03/25/22 09:32 Duloxetine Hcl 30 Mg Capsule. PO 30 mg DAILY SONYA Administration Duloxetine HCl 60 mg 03/18/22 09:00 03/25/22 09:31 Duloxetine Hcl 60 Mg Capsule. PO
[2022-03-25 14:00] VITALS: BP 131/74; PULSE 95; RESP 18; TEMP 36.3; O2SAT 100
--- NOTE | 2022-03-25 14:33 | PM.IMPN ---
Progress Note: A&P Assessment and Plan (1) Colitis: Code(s): K52.9 - Noninfective gastroenteritis and colitis, unspecified Status: Acute Assessment and Plan: Patient presented with diarrhea since January to the ER on 03/17/2022. She reported when symptoms started, she attributed it to influenza virus that one of her children had. The loose stool persisted despite taking over the counter diarrhea medications. She also reports an episode of chills and fever prior to admission. 03/16/22 CT show possible mild infectious or inflammatory colitis. She was prescribed p.o. vancomycin by her PCP and took it for 5 days without significant improvement. Her cdiff test before starting antibiotics was lost by the outpatient lab and repeat cdiff was negative so she stopped taking the vancomycin. Repeat C diff negative on admission. 03/17/22 IV Zosyn 3.375 mg Q6 hours. Antibiotics stopped 03/24/22. GI consulted and appreciate recommendations Treated with IV fluids and stopped 03/19/22 when taking PO. Analgesics for pain control including scheduled Tylenol and Percocet PRN on 03/21/22. Bentyl 20 mg AC/HS PRN abd cramping. WBC 10 to 20 and trending to normal 5.8 on 03/21/22 ESR 44, CRP 14.4 to 1.5 today 03/22/22 after antibiotics started. Blood cultures no growth to date 03/19/22 Colonoscopy with moderate localized colitis of ascending and transverse colon with erythematous and hypervascular changes. biopsies negative. Per GI, no classic changes that would be consistent with ulcerative colitis or Crohn's disease. Lomotil 2 tabs Q8 hours scheduled started 03/21/22. stool calprotectin r/o celiac disease pending. stool elastase pending to rule out pancreatic insufficiency. Hemoccult positive and likely secondary to colitis. 03/21/22 Persistent abdominal pain and loose stool, especially after eating. Day 5 Zosyn IV. stool studies pending per GI. 03/22/22 trial IV solu-medrol for possible IBD until pathology report released. 03/23/22 stools slowing. day 2 solu-medrol. 03/24/22 transitioned to budesonide PO per GI. Patient afebrile and Leukocytosis (WBC 17) likely secondary to systemic steroids. (2) Cholelithiasis: Qualifiers: Biliary obstruction: without biliary obstruction Cholecystitis presence: without cholecystitis Cholelithiasis location: gallbladder Qualified Code(s): K80.20 - Calculus of gallbladder without cholecystitis without obstruction Code(s): K80.20 - Calculus of gallbladder without cholecystitis without obstruction Status: Acute Assessment and Plan: Abdominal US shows cholelithiasis, gallbladder distention and mildly dilated common bile duct. She also reports c/o increase pain and bloating after eating. Her abd pain starts in the RUQ and radiates to the LUQ in a band-like, cramping pain. The pain continues to be worse after eating and she states she has multiple loose stools after eating. Question whether pain is secondary to gallbladder disease versus colitis. Loose stools after eating may suggest gallbladder disease? General surgery consulted for evaluation and do not think urgent surgery is necessary. GI already following. Low fat diet when tolerating PO. LFTs within normal limit. No gallbladder wall thickening or melissa's sign to suggest acute cholecystitis, however, patient is also being treated with Zosyn currently. Will check HIDA scan to evaluate gallbladder function 03/23/22 HIDA results with GBEF 27% mildly reduced and probable chronic cholecystitis. General surgery recommends outpatient follow-up when colitis resolved. 03/24/22 HIDA scan results discussed with the patient. (3) Diarrhea: Code(s): R19.7 - Diarrhea, unspecified Status: Acute Assessment and Plan: As above. Diarrhea presumed secondary to colitis and somewhat improved. Trial Questran tomorrow, per GI, if no improvement in stool with budesonide as above. (4) History of deep venous thrombosis:
[2022-03-25 20:00] VITALS: PULSE 64; RESP 18; O2SAT 100
[2022-03-25] MEDS: TOPIRAMATE 100 MG TABLET PO (20:12)
[2022-03-25 21:18] VITALS: BP 105/62; PULSE 64; RESP 18; TEMP 36.4; O2SAT 100
[2022-03-26] MEDS: ACETAMINOPHEN 325 MG TABLET 650 MG PO ×6 (00:46→21:17)
[2022-03-26 06:00] VITALS: BP 126/74; PULSE 72; RESP 18; TEMP 36.3; O2SAT 96
[2022-03-26] MEDS: DIPHENOXYLATE/ATROPINE (*CRX) 2.5 MG TABLET 2 TABLET PO ×3 (06:07→21:24)
[2022-03-26] MEDS: DICYCLOMINE HCL 10 MG CAPSULE 20 MG PO ×4 (06:07→21:18)
[2022-03-26] MEDS: GABAPENTIN 400 MG CAPSULE 800 MG PO ×3 (10:14→21:15)
[2022-03-26] MEDS: BACLOFEN 10 MG TABLET 20 MG PO ×3 (10:14→21:24)
[2022-03-26] MEDS: GABAPENTIN 100 MG CAPSULE PO ×3 (10:14→21:17)
[2022-03-26] MEDS: TOPIRAMATE 25 MG TABLET PO (10:15)
[2022-03-26] MEDS: BUDESONIDE 3 MG CAP.SR.24H 9 MG PO (10:15)
[2022-03-26] MEDS: CHOLESTYRAMINE (W/ SUGAR) 4 GM POWD.PACK PO (11:37)
[2022-03-26] MEDS: DULoxetine HCL 30 MG CAPSULE.DR PO (13:28)
[2022-03-26] MEDS: DULoxetine HCL 60 MG CAPSULE.DR PO (13:29)
[2022-03-26 14:00] VITALS: BP 126/84; PULSE 74; RESP 18; TEMP 36.5; O2SAT 97
--- NOTE | 2022-03-26 15:34 | WPDGIPROGNO ---
Progress Note: A&P Assessment and Plan (1) Diarrhea: Code(s): R19.7 - Diarrhea, unspecified Status: Acute Assessment and Plan: I suspect that she has inflammatory bowel disease. C difficile colitis remains a possibility, however she did not have risk factors for that. Unfortunately when she was tested she had already started taking vancomycin. repeat stool for C diff is again negative. I am fairly certain now that she does not have an infectious colitis. I will start her on Lomotil 2 tabs q.8 hours for symptomatic relief. will check her for celiac disease, particularly given the fact she has had weight loss and also was anemic and as low albumin Will also check stool for elastase to rule out pancreatic insufficiency, although she does not have the usual risk factors 03/23/2022 all of the above mentioned tests are still pending. I will also order a fecal fat to rule out malabsorption of fat 03/26/2022 Unfortunately all the studies we have ordered for inflammatory bowel disease are still pending. I thought by now that we would have some results. I am going to order some more stool studies for Giardia and Cryptosporidium. After that she could hopefully be discharged and we can continue her investigation and treatment as an outpatient. (2) Colitis: Code(s): K52.9 - Noninfective gastroenteritis and colitis, unspecified Status: Acute Assessment and Plan: She is scheduled for colonoscopy to be done tomorrow. I discussed with her the prep I told her that even though she has diarrhea will need to give her some bowel prep because of the likelihood of mucoid thick stool in the ascending colon 03/21/2022 still having severe diarrhea. I discussed with her the results of her colonoscopy, patchy inflammation in the right colon only. No classic changes that would be consistent with ulcerative colitis or Crohn's disease. Histologically, the changes are not consistent with ulcerative colitis, no cryptitis seen. It also does not look like Crohn's disease he does however have a sister with Crohn's disease which raises the probability of that. 03/23/2022 due to the fact that she has some sort of colitis and appears not to be infectious, I have started her on Solu-Medrol. Unless it is a coincidence, her symptoms have improved somewhat in the last 24 hours 03/26/2022 she was switched to Entocort. This has not made much of a difference so far. She is also started on cholestyramine but has only received 1 dose (3) BMI 50.0-59.9, adult: Code(s): Z68.43 - Body mass index [BMI] 50.0-59.9, adult Status: Acute Assessment and Plan: she actually has lost about 15 lb with the present illness (4) Hypoalbuminemia: Code(s): E88.09 - Other disorders of plasma-protein metabolism, not elsewhere classified Status: Acute Assessment and Plan: albumin is low at 3.1. This is consistent with her history of the weight loss and poor oral intake. I did discuss her diet history with her. She eats fairly round diet although low in fiber. She has symptoms of diarrhea and more recently nausea or cramping, no matter what she eats. (5) Anemia: Code(s): D64.9 - Anemia, unspecified Status: Acute Assessment and Plan: Her hemoglobin in January at about the time her symptoms began was 13.9. It is now down to 11.9. I should add that she has not had blood in her stools. MCV is normal, although I am again suspicious that this could be a malabsorption problem such as celiac disease. (6) Abdominal pain: Code(s): R10.9 - Unspecified abdominal pain Status: Acute Assessment and Plan: she continues to have discomfort in the mid to upper abdomen and it was worse after eating dinner last night; she states that ultrasound was discussed but had not yet been ordered. I will go ahead and order that now. 03/23/22 results of endoscopy discussed. Biopsies for celiac diseas
--- NOTE | 2022-03-26 16:16 | P.PNIM_ITS ---
Progress Note: A&P Assessment and Plan (1) Colitis: Code(s): K52.9 - Noninfective gastroenteritis and colitis, unspecified Status: Acute Assessment and Plan: Patient presented with diarrhea since January to the ER on 03/17/2022. She reported when symptoms started, she attributed it to influenza virus that one of her children had. The loose stool persisted despite taking over the counter diarrhea medications. She also reports an episode of chills and fever prior to admission. She was prescribed p.o. vancomycin by her PCP and took it for 5 days without significant improvement. Her cdiff test before starting antibiotics was lost by the outpatient lab and repeat cdiff was negative so she stopped taking the vancomycin. * 03/16/22 CT show possible mild infectious or inflammatory colitis. * Repeat C diff negative on admission. * 03/17/22 IV Zosyn 3.375 mg Q6 hours. 7-day course abx completed 03/24/22. * GI consulted and appreciate recommendations * Treated with IV fluids and stopped 03/19/22 when taking PO. * Analgesics for pain control including scheduled Tylenol and Percocet PRN on 03/21/22. Bentyl 20 mg AC/HS. * WBC 10 to 20 early in admission and trended to normal 5.8 on 03/21/22; WBC increased 03/24/22 however likely secondary to steroids as patient is afebrile and completed antibiotics. * ESR 44, CRP 14.4 to 1.5 on 03/22/22 after antibiotics started. * Blood cultures no growth to date * 03/19/22 Colonoscopy with moderate localized colitis of ascending and transverse colon with erythematous and hypervascular changes. biopsies negative. Per GI, no classic changes that would be consistent with ulcerative colitis or Crohn's disease. * Lomotil 2 tabs Q8 hours scheduled started 03/21/22. * stool calprotectin r/o celiac disease pending. * stool elastase pending to rule out pancreatic insufficiency. * Hemoccult positive and likely secondary to colitis. * 03/22/22 started IV solu-medrol for possible IBD until pathology report released; 03/24/22 transitioned to oral budesonide. * GI ordering more stool samples which are pending. Once obtained patient can follow up outpatient per GI. * Continue supportive care. (2) Cholelithiasis: Qualifiers: Cholelithiasis location: gallbladder Cholecystitis presence: without cholecystitis Biliary obstruction: without biliary obstruction Qualified Code(s): K80.20 - Calculus of gallbladder without cholecystitis without obstruction Code(s): K80.20 - Calculus of gallbladder without cholecystitis without obstruction Status: Acute Assessment and Plan: Abdominal US shows cholelithiasis, gallbladder distention and mildly dilated common bile duct. She also reports c/o increase pain and bloating after eating. Her abd pain starts in the RUQ and radiates to the LUQ in a band-like, cramping pain. The pain continues to be worse after eating and she states she has multiple loose stools after eating. * General surgery consulted for evaluation and do not think urgent surgery is necessary. * GI already following. * Low fat diet * LFTs within normal limit. * US with cholelithiasis but no gallbladder wall thickening or melissa's sign to suggest acute cholecystitis. Patient treated with zosyn at the time. * 03/23/22 HIDA results with GBEF 27% mildly reduced and probable chronic cholecystitis. General surgery recommends outpatient follow-up when colitis resolved. Results discussed with the patient. * 03/26/22 Discussed case with General Surgery and will still plan to discuss cholecystectomy outpatient. Continue supportive care. (3) Diarrhea: Code(s): R19.7 - Diarrhea, unspecified Status: Acute
--- NOTE | 2022-03-26 16:16 | PM.IMPN ---
Progress Note: A&P Assessment and Plan (1) Colitis: Code(s): K52.9 - Noninfective gastroenteritis and colitis, unspecified Status: Acute Assessment and Plan: Patient presented with diarrhea since January to the ER on 03/17/2022. She reported when symptoms started, she attributed it to influenza virus that one of her children had. The loose stool persisted despite taking over the counter diarrhea medications. She also reports an episode of chills and fever prior to admission. She was prescribed p.o. vancomycin by her PCP and took it for 5 days without significant improvement. Her cdiff test before starting antibiotics was lost by the outpatient lab and repeat cdiff was negative so she stopped taking the vancomycin. 03/16/22 CT show possible mild infectious or inflammatory colitis. Repeat C diff negative on admission. 03/17/22 IV Zosyn 3.375 mg Q6 hours. 7-day course abx completed 03/24/22. GI consulted and appreciate recommendations Treated with IV fluids and stopped 03/19/22 when taking PO. Analgesics for pain control including scheduled Tylenol and Percocet PRN on 03/21/22. Bentyl 20 mg AC/HS. WBC 10 to 20 early in admission and trended to normal 5.8 on 03/21/22; WBC increased 03/24/22 however likely secondary to steroids as patient is afebrile and completed antibiotics. ESR 44, CRP 14.4 to 1.5 on 03/22/22 after antibiotics started. Blood cultures no growth to date 03/19/22 Colonoscopy with moderate localized colitis of ascending and transverse colon with erythematous and hypervascular changes. biopsies negative. Per GI, no classic changes that would be consistent with ulcerative colitis or Crohn's disease. Lomotil 2 tabs Q8 hours scheduled started 03/21/22. stool calprotectin r/o celiac disease pending. stool elastase pending to rule out pancreatic insufficiency. Hemoccult positive and likely secondary to colitis. 03/22/22 started IV solu-medrol for possible IBD until pathology report released; 03/24/22 transitioned to oral budesonide. GI ordering more stool samples which are pending. Once obtained patient can follow up outpatient per GI. Continue supportive care. (2) Cholelithiasis: Qualifiers: Cholelithiasis location: gallbladder Cholecystitis presence: without cholecystitis Biliary obstruction: without biliary obstruction Qualified Code(s): K80.20 - Calculus of gallbladder without cholecystitis without obstruction Code(s): K80.20 - Calculus of gallbladder without cholecystitis without obstruction Status: Acute Assessment and Plan: Abdominal US shows cholelithiasis, gallbladder distention and mildly dilated common bile duct. She also reports c/o increase pain and bloating after eating. Her abd pain starts in the RUQ and radiates to the LUQ in a band-like, cramping pain. The pain continues to be worse after eating and she states she has multiple loose stools after eating. General surgery consulted for evaluation and do not think urgent surgery is necessary. GI already following. Low fat diet LFTs within normal limit. US with cholelithiasis but no gallbladder wall thickening or melissa's sign to suggest acute cholecystitis. Patient treated with zosyn at the time. 03/23/22 HIDA results with GBEF 27% mildly reduced and probable chronic cholecystitis. General surgery recommends outpatient follow-up when colitis resolved. Results discussed with the patient. 03/26/22 Discussed case with General Surgery and will still plan to discuss cholecystectomy outpatient. Continue supportive care. (3) Diarrhea: Code(s): R19.7 - Diarrhea, unspecified Status: Acute Assessment and Plan: As above. Diarrhea presumed secondary to colitis and somewhat improved. Management per GI. Continued on budesonide 9 mg PO daily and Questran PO daily added. (4) History of deep venous thrombosis: Code(s): Z86.718 - Personal history of other venous thrombosis and embolism Status: C
[2022-03-26 20:43] LABS: ANCA Screen Negative (Negative); Myeloperoxidase Ab <1.0 AI (<1.0); Proteinase-3 Ab <1.0 AI (<1.0); S cerevisiae Ab (IgG) 9.6 U (<=20.0)
[2022-03-26] MEDS: TOPIRAMATE 100 MG TABLET PO (21:17)
[2022-03-26] MEDS: APIXABAN 2.5 MG TABLET PO (21:18)
[2022-03-26 22:08] VITALS: BP 121/76; PULSE 89; RESP 18; TEMP 36.7; O2SAT 98
[2022-03-26 22:36] LABS: Calprotectin, Stool 52 mcg/g
[2022-03-27] MEDS: ACETAMINOPHEN 325 MG TABLET 650 MG PO ×3 (01:00→10:17)
[2022-03-27] MEDS: oxyCODONE/ACETAMINOPHEN (*CRX) 10-325 MG TABLET 1 TAB PO (04:31)
[2022-03-27 05:37] VITALS: BP 126/84; PULSE 70; RESP 16; TEMP 36.1; O2SAT 98
[2022-03-27] MEDS: DIPHENOXYLATE/ATROPINE (*CRX) 2.5 MG TABLET 2 TABLET PO (06:26)
[2022-03-27] MEDS: DICYCLOMINE HCL 10 MG CAPSULE 20 MG PO (06:26)
[2022-03-27 06:29] LABS: Hematocrit 39.3 % (37.0-47.0); Hemoglobin 12.1 g/dL (12.0-15.0); Mean Corpuscular HGB Conc 30.8 g/dl (32-36); Mean Corpuscular Hemoglobin 27.4 pg (26-34); Mean Corpuscular Volume 89.1 fl (80-100); Mean Platelet Volume 10.8 fl (7.4-10.4); Platelet Count Result 222 k/mm3 (150-375); Red Blood Count 4.41 M/mm3 (4.2-5.4); Red Cell Distribution Width 16.1 % (11.5-14.5); White Blood Count 9.8 K/mm3 (4.5-10.0)
[2022-03-27 06:52] LABS: Alanine Aminotransferase 54 U/L (6-35); Albumin Level 3.1 g/dL (3.5-5.1); Alkaline Phosphatase 63 U/L (38-126); Anion Gap 4 mmol/L (8-16); Aspartate Amino Transferase 21 U/L (14-36); Bilirubin,Total 0.3 mg/dL (0.2-1.3); Blood Urea Nitrogen 11 mg/dL (7-17); Calcium 7.9 mg/dL (8.4-10.2); Carbon Dioxide 25 mmol/L (22-30); Chloride 105 mmol/L (98-107); Estimated CRCL calculation 140 ml/min; Estimated Glomerular Filt Rate > 60; Glucose 106 mg/dL (65-110); Potassium 3.3 mmol/L (3.4-5.0); Sodium 134 mmol/L (137-145)
--- NOTE | 2022-03-27 07:26 | WPDGIPROGNO ---
Progress Note: A&P Assessment and Plan (1) Diarrhea: Code(s): R19.7 - Diarrhea, unspecified Status: Acute Assessment and Plan: I suspect that she has inflammatory bowel disease. C difficile colitis remains a possibility, however she did not have risk factors for that. Unfortunately when she was tested she had already started taking vancomycin. repeat stool for C diff is again negative. I am fairly certain now that she does not have an infectious colitis. I will start her on Lomotil 2 tabs q.8 hours for symptomatic relief. will check her for celiac disease, particularly given the fact she has had weight loss and also was anemic and as low albumin Will also check stool for elastase to rule out pancreatic insufficiency, although she does not have the usual risk factors 03/23/2022 all of the above mentioned tests are still pending. I will also order a fecal fat to rule out malabsorption of fat 03/26/2022 Unfortunately all the studies we have ordered for inflammatory bowel disease are still pending. I thought by now that we would have some results. I am going to order some more stool studies for Giardia and Cryptosporidium. After that she could hopefully be discharged and we can continue her investigation and treatment as an outpatient. 03/27/2022 although her stools are still loose, they have improved since admission. I will have her follow-up with me in the office the week after next. I told her that she will go home and basically the same medications she is taking now, including Lomotil 2 3 times a day, budesonide 9 mg per day, bed till she can take p.r.n. because it makes her drowsy. I am having her start Align probiotic once daily. (2) Colitis: Code(s): K52.9 - Noninfective gastroenteritis and colitis, unspecified Status: Acute Assessment and Plan: She is scheduled for colonoscopy to be done tomorrow. I discussed with her the prep I told her that even though she has diarrhea will need to give her some bowel prep because of the likelihood of mucoid thick stool in the ascending colon 03/21/2022 still having severe diarrhea. I discussed with her the results of her colonoscopy, patchy inflammation in the right colon only. No classic changes that would be consistent with ulcerative colitis or Crohn's disease. Histologically, the changes are not consistent with ulcerative colitis, no cryptitis seen. It also does not look like Crohn's disease he does however have a sister with Crohn's disease which raises the probability of that. 03/23/2022 due to the fact that she has some sort of colitis and appears not to be infectious, I have started her on Solu-Medrol. Unless it is a coincidence, her symptoms have improved somewhat in the last 24 hours 03/26/2022 she was switched to Entocort. This has not made much of a difference so far. She is also started on cholestyramine but has only received 1 dose 03/27/2022 the serology for inflammatory bowel disease has finally come back. I reviewed with her. Essentially this rules out ulcerative colitis and Crohn's disease. Consequently an infectious etiology remains most likely probability. 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 (3) BMI 50.0-59.9, adult: Code(s): Z68.43 - Body mass index [BMI] 50.0-59.9, adult Status: Acute Assessment and Plan: she actually has lost about 15 lb with the present illness (4) Hypoalbuminemia: Code(s): E88.09 - Other disorders of plasma-protein metabolism, not elsewhere classified Status: Acute Assessment and Plan: albumin is low at 3.1. This is consistent with her history of the weight loss and poor oral intake. I did discuss her diet history with her. She eats fairly round diet although low in fiber. She has symptoms of diarrhea and more recently nausea or cramping, no matter what she eats. (5) Anemia: Code(s): D64.9 - Anemia, unspecified
--- NOTE | 2022-03-27 09:41 | P.DS_ITS ---
DS: Admitting Diagnosis Discharge Date 03/27/2022 Admitting Diagnosis Colitis Diarrhea DS: Discharge Diagnosis Discharge Diagnosis (1) Colitis: Code(s): K52.9 - Noninfective gastroenteritis and colitis, unspecified Status: Acute Assessment and Plan: Patient presented with diarrhea since January to the ER on 03/17/2022. She reported when symptoms started, she attributed it to influenza virus that one of her children had. The loose stool persisted despite taking over the counter d iarrhea medications. She also reports an episode of chills and fever prior to admission. She was prescribed p.o. vancomycin by her PCP and took it for 5 days without significant improvement. Her cdiff test before starting antibiotics was lost by the outpatient lab and repeat cdiff was negative so she stopped taking the vancomycin. * 03/16/22 CT show possible mild infectious or inflammatory colitis. * Repeat C diff negative on admission. * 03/17/22 IV Zosyn 3.375 mg Q6 hours. 7-day course abx completed 03/24/22. * GI consulted and appreciate recommendations * Treated with IV fluids and stopped 03/19/22 when taking PO. * Analgesics for pain control including scheduled Tylenol and Percocet PRN on 03/21/22. Bentyl 20 mg AC/HS. * WBC 10 to 20 early in admission and trended to normal 5.8 on 03/21/22; WBC inc reased 03/24/22 however likely secondary to steroids as patient is afebrile and completed antibiotics. * ESR 44, CRP 14.4 to 1.5 on 03/22/22 after antibiotics started. * Blood cultures no growth to date * 03/19/22 Colonoscopy with moderate localized colitis of ascending and transverse colon with erythematous and hypervascular changes. biopsies negative. Per GI, no classic changes that would be consistent with ulcerative colitis or Crohn's disease. * Lomotil 2 tabs Q8 hours scheduled started 03/21/22. * stool calprotectin r/o celiac disease pending. * stool elastase pending to rule out pancreatic insufficiency pending * Hemoccult positive and likely secondary to colitis. * 03/22/22 started IV solu-medrol for possible inflammatory bowel disease until pathology report released; 03/24/22 transitioned to oral budesonide. colon biopsy chronic colitis. * GI ordered giardia and cryptosporidium stool- pending. (2) Cholelithiasis: Qualifiers: Biliary obstruction: without biliary obstruction Cholecystitis presence: without cholecystitis Cholelithiasis location: gallbladder Qualified Code(s): K80.20 - Calculus of gallbladder without cholecystitis without obstruction Code(s): K80.20 - Calculus of gallbladder without cholecystitis without obstruction Status: Acute Assessment and Plan: Abdominal US shows cholelithiasis, gallbladder distention and mildly dilated common bile duct. She also reports c/o increase pain and bloating after eating. Her abd pain starts in the RUQ and radiates to the LUQ in a band-like, cramping pain. The pain continues to be worse after eating and she states she has multiple loose stools after eating. * General surgery consulted for evaluation and do not think urgent surgery is necessary. * GI already following. * Low fat diet * LFTs within normal limit. * US with cholelithiasis but no gallbladder wall thickening or melissa's sign to suggest acute cholecystitis. Patient treated with zosyn at the time. * 03/23/22 HIDA results with GBEF 27% mildly reduced and probable chronic cholecystitis. General surgery recommends outpatient follow-up when colitis resolved. Results discussed with the patient. * 03/26/22 Discussed case with General Surgery and will still plan to discuss cholecystectomy outpatient. Continue supportive care
--- NOTE | 2022-03-27 09:41 | PM.DS ---
DS: Admitting Diagnosis Discharge Date 03/27/2022 Admitting Diagnosis Colitis Diarrhea DS: Discharge Diagnosis Discharge Diagnosis (1) Colitis: Code(s): K52.9 - Noninfective gastroenteritis and colitis, unspecified Status: Acute Assessment and Plan: Patient presented with diarrhea since January to the ER on 03/17/2022. She reported when symptoms started, she attributed it to influenza virus that one of her children had. The loose stool persisted despite taking over the counter diarrhea medications. She also reports an episode of chills and fever prior to admission. She was prescribed p.o. vancomycin by her PCP and took it for 5 days without significant improvement. Her cdiff test before starting antibiotics was lost by the outpatient lab and repeat cdiff was negative so she stopped taking the vancomycin. 03/16/22 CT show possible mild infectious or inflammatory colitis. Repeat C diff negative on admission. 03/17/22 IV Zosyn 3.375 mg Q6 hours. 7-day course abx completed 03/24/22. GI consulted and appreciate recommendations Treated with IV fluids and stopped 03/19/22 when taking PO. Analgesics for pain control including scheduled Tylenol and Percocet PRN on 03/21/22. Bentyl 20 mg AC/HS. WBC 10 to 20 early in admission and trended to normal 5.8 on 03/21/22; WBC increased 03/24/22 however likely secondary to steroids as patient is afebrile and completed antibiotics. ESR 44, CRP 14.4 to 1.5 on 03/22/22 after antibiotics started. Blood cultures no growth to date 03/19/22 Colonoscopy with moderate localized colitis of ascending and transverse colon with erythematous and hypervascular changes. biopsies negative. Per GI, no classic changes that would be consistent with ulcerative colitis or Crohn's disease. Lomotil 2 tabs Q8 hours scheduled started 03/21/22. stool calprotectin r/o celiac disease pending. stool elastase pending to rule out pancreatic insufficiency pending Hemoccult positive and likely secondary to colitis. 03/22/22 started IV solu-medrol for possible inflammatory bowel disease until pathology report released; 03/24/22 transitioned to oral budesonide. colon biopsy chronic colitis. GI ordered giardia and cryptosporidium stool- pending. (2) Cholelithiasis: Qualifiers: Biliary obstruction: without biliary obstruction Cholecystitis presence: without cholecystitis Cholelithiasis location: gallbladder Qualified Code(s): K80.20 - Calculus of gallbladder without cholecystitis without obstruction Code(s): K80.20 - Calculus of gallbladder without cholecystitis without obstruction Status: Acute Assessment and Plan: Abdominal US shows cholelithiasis, gallbladder distention and mildly dilated common bile duct. She also reports c/o increase pain and bloating after eating. Her abd pain starts in the RUQ and radiates to the LUQ in a band-like, cramping pain. The pain continues to be worse after eating and she states she has multiple loose stools after eating. General surgery consulted for evaluation and do not think urgent surgery is necessary. GI already following. Low fat diet LFTs within normal limit. US with cholelithiasis but no gallbladder wall thickening or melissa's sign to suggest acute cholecystitis. Patient treated with zosyn at the time. 03/23/22 HIDA results with GBEF 27% mildly reduced and probable chronic cholecystitis. General surgery recommends outpatient follow-up when colitis resolved. Results discussed with the patient. 03/26/22 Discussed case with General Surgery and will still plan to discuss cholecystectomy outpatient. Continue supportive care. (3) Diarrhea: Code(s): R19.7 - Diarrhea, unspecified Status: Acute Assessment and Plan: As above. Diarrhea presumed secondary to colitis and somewhat improved. Management per GI. Continued on budesonide 9 mg PO daily and Questran PO daily added. (4) Irritable bowel syndrome with diarrhea: Cod
[2022-03-27] MEDS: DULoxetine HCL 30 MG CAPSULE.DR PO (10:16)
[2022-03-27] MEDS: TOPIRAMATE 25 MG TABLET PO (10:16)
[2022-03-27] MEDS: BACLOFEN 10 MG TABLET 20 MG PO (10:16)
[2022-03-27] MEDS: CHOLESTYRAMINE (W/ SUGAR) 4 GM POWD.PACK PO (10:16)
[2022-03-27] MEDS: APIXABAN 2.5 MG TABLET PO (10:17)
[2022-03-27] MEDS: GABAPENTIN 100 MG CAPSULE PO (10:17)
[2022-03-27] MEDS: DULoxetine HCL 60 MG CAPSULE.DR PO (10:17)
[2022-03-27] MEDS: GABAPENTIN 400 MG CAPSULE 800 MG PO (10:17)
[2022-03-27] MEDS: BUDESONIDE 3 MG CAP.SR.24H 9 MG PO (10:17)
[2022-03-27 15:43] LABS: Pancreatic Elastase, Stool 163 mcg/g
[2022-03-29 15:12] LABS: Gliadin AB, IgG <1.0 U/mL
[2022-03-29 15:14] LABS: TTG IGA AB <1.0 U/mL
== END 2022-03-27 12:15 | disposition home or self-care (01) | DRG 392 ==
LOC: ANHED 13:49 → ANH3MEDSUR 14:40
PROVIDERS: Internal Medicine Critical Care Medicine; Internal Medicine Gastroenterology; Nurse Practitioner; Physician Assistant; Admitting Provider Hospitalist; Emergency Provider General Practice; PCP Family Medicine; Visit Provider Nurse Practitioner Family
PROC: 0DJD8ZZ Inspection of Lower Intestinal Tract, Via Natural or Artificial Opening Endoscopic (ICD-10-PCS; CPT 45378; principal; 2022-03-19 13:00)
PROC: 0DJ08ZZ Inspection of Upper Intestinal Tract, Via Natural or Artificial Opening Endoscopic (ICD-10-PCS; CPT 43235; principal; 2022-03-22 13:00)
DX: K52.9 Noninfective gastroenteritis and colitis, unspecified (principal); Z68.43 Body mass index [BMI] 50.0-59.9, adult; K80.20 Calculus of gallbladder without cholecystitis without obstruction; K58.0 Irritable bowel syndrome with diarrhea; D64.9 Anemia, unspecified; E88.09 Other disorders of plasma-protein metabolism, not elsewhere classified; M06.9 Rheumatoid arthritis, unspecified; Z20.822 Contact with and (suspected) exposure to COVID-19; F41.9 Anxiety disorder, unspecified; E66.01 Morbid (severe) obesity due to excess calories; F32.9 Major depressive disorder, single episode, unspecified; G50.0 Trigeminal neuralgia; G43.909 Migraine, unspecified, not intractable, without status migrainosus; Z86.718 Personal history of other venous thrombosis and embolism; Z79.02 Long term (current) use of antithrombotics/antiplatelets
CPT/HCPCS: 36415; 76700; 78226; 80053; 81001; 81025; 82274; 82653; 83516; 83605; 83690; 83735; 83993; 84436; 84443; 85025; 85027; 85652; 86036; 86140; 86255; 86671; 87040; 87081; 87269; 87272; 87493; 87636; 88305; 93005; 96361; 96365; 96366; 96372; 96375; 96376; 99285; A9270; A9537; G0378; J0131; J0500; J2001; J2405; J2543; J2704; J2920; J7120

== ENCOUNTER 2022-04-11 15:51 | Outpatient (CLI) | payer OTHER, SELFPAY ==
[2022-04-11 17:12] LABS: Basophils Absolute Auto 0.1 K/mm3 (0.0-0.1); Basophils Percent Auto 0.6 % (0.2-1.2); Eosinophils Absolute Auto 0.1 K/mm3 (0-0.3); Eosinophils Percent Auto 1.2 % (0-4.4); Hematocrit 39.2 % (37.0-47.0); Hemoglobin 11.7 g/dL (12.0-15.0); Immature Granulocyte Absolute 0.03 K/mm3 (0.00-0.031); Immature Granulocyte Percent A 0.4 % (0-0.5); Lymphocytes Absolute Auto 2.31 K/mm3 (0.9-3.2); Mean Corpuscular HGB Conc 29.8 g/dl (32-36); Mean Corpuscular Hemoglobin 27.5 pg (26-34); Mean Platelet Volume 11.6 fl (7.4-10.4); Monocytes Absolute Auto 0.5 K/mm3 (0.1-0.6); Monocytes Percent Auto 6.3 % (2.6-8.5); Neutrophils Absolute Auto 5.2 K/mm3 (1.3-6.7); Neutrophils Percent Auto 63.5 % (45.5-73.1); Platelet Count Result 201 k/mm3 (150-375); Red Blood Count 4.26 M/mm3 (4.2-5.4); Red Cell Distribution Width 16.4 % (11.5-14.5); White Blood Count 8.2 K/mm3 (4.5-10.0)
[2022-04-11 17:25] LABS: Alanine Aminotransferase 21 U/L (6-35); Albumin Level 3.4 g/dL (3.5-5.1); Alkaline Phosphatase 65 U/L (38-126); Anion Gap 4 mmol/L (8-16); Aspartate Amino Transferase 19 U/L (14-36); Bilirubin,Total 0.3 mg/dL (0.2-1.3); Blood Urea Nitrogen 15 mg/dL (7-17); Calcium 8.4 mg/dL (8.4-10.2); Carbon Dioxide 27 mmol/L (22-30); Chloride 107 mmol/L (98-107); Estimated Glomerular Filt Rate > 60; Glucose 80 mg/dL (65-110); Potassium 4.1 mmol/L (3.4-5.0); Sodium 138 mmol/L (137-145)
[2022-04-11 17:55] LABS: Hypochromasia 1+ (NORMAL); Ovalocytes 1+ (NORMAL); Platelet Estimate Adequate (Adequate); Schistocytes None Seen (NORMAL)
== END 2022-04-11 15:52 | disposition home or self-care (01) ==
LOC: ANHLAB 15:52
PROVIDERS: PCP Family Medicine; Visit Provider Nurse Practitioner Family
DX: R19.7 Diarrhea, unspecified (principal); D64.9 Anemia, unspecified; K58.0 Irritable bowel syndrome with diarrhea
CPT/HCPCS: 36415; 80053; 85025

== ENCOUNTER 2022-04-19 15:58 | Outpatient (CLI) | payer OTHER, SELFPAY ==
[2022-04-19 16:27] LABS: Basophils Percent Auto 0.4 % (0.2-1.2); Eosinophils Absolute Auto 0.1 K/mm3 (0-0.3); Eosinophils Percent Auto 1.1 % (0-4.4); Hematocrit 39.9 % (37.0-47.0); Hemoglobin 12.1 g/dL (12.0-15.0); Immature Granulocyte Absolute 0.03 K/mm3 (0.00-0.031); Immature Granulocyte Percent A 0.3 % (0-0.5); Lymphocytes Absolute Auto 2.13 K/mm3 (0.9-3.2); Lymphocytes Percent Auto 22.5 % (18.3-44.2); Mean Corpuscular HGB Conc 30.3 g/dl (32-36); Mean Corpuscular Hemoglobin 28.3 pg (26-34); Mean Corpuscular Volume 93.2 fl (80-100); Mean Platelet Volume 11.1 fl (7.4-10.4); Monocytes Absolute Auto 0.5 K/mm3 (0.1-0.6); Monocytes Percent Auto 5.5 % (2.6-8.5); Neutrophils Absolute Auto 6.6 K/mm3 (1.3-6.7); Neutrophils Percent Auto 70.2 % (45.5-73.1); Platelet Count Result 219 k/mm3 (150-375); Red Blood Count 4.28 M/mm3 (4.2-5.4); Red Cell Distribution Width 16.3 % (11.5-14.5); White Blood Count 9.5 K/mm3 (4.5-10.0)
[2022-04-19 16:34] LABS: Rheumatoid Factor < 8.6 IU/ML (<12)
[2022-04-19 17:20] LABS: Erythrocyte Sedimentation Rate 16 mm/hr (0-20)
[2022-04-19 17:34] LABS: Free T4 Free Thyroxine 0.93 ng/mL (0.78-2.19)
[2022-04-19 17:48] LABS: Thyroid Stimulating Hormone 0.591 uIU/mL (0.465-4.680)
[2022-04-22 03:18] LABS: Thyroid Peroxidase Antibodies 1 IU/mL (<9)
[2022-04-24 09:02] LABS: Anti Nuclear Antibody Titer >=1:1280 (Negative)
[2022-04-24 11:10] LABS: CRP, High Sensitivity >10.0 mg/L (***)
== END 2022-04-19 15:59 | disposition home or self-care (01) ==
LOC: ANHLAB 15:58
PROVIDERS: PCP Family Medicine; Visit Provider Nurse Practitioner Family
DX: D64.9 Anemia, unspecified (principal); M06.9 Rheumatoid arthritis, unspecified; G43.909 Migraine, unspecified, not intractable, without status migrainosus
CPT/HCPCS: 36415; 84439; 84443; 85025; 85652; 86038; 86039; 86141; 86376; 86430; 86800

== ENCOUNTER 2022-05-03 12:33 | Outpatient (CLI) | payer OTHER, SELFPAY ==
--- NOTE | 2022-05-03 12:48 | ECHO_ITS ---
Patient Info Name: Sarah Chavira Age: 41 years : 1980 Gender: Female Ht: 63 in Wt: 289 lbs BSA: 2.50 m2 HR: 71 bpm BP: 123 / 94 mmHg Technical Quality: Fair Exam Date: 05/03/2022 12:53 PM Exam Location: [facility] Patient Status: Outpatient Admit Date: 05/03/2022 Staff Ordering Physician: Emi Levy NP Visual Merchandising Coordinator: Sushila Cardoza RDCS Attending Provider: Emi Levy NP Referring Physician: Mildred MCKEON; Exam Type: CA echo dop color flow w con Study Info Complete two-dimensional, color flow and Doppler transthoracic echocardiogram is performed with contrast to opacify the left ventricle and to improve the deliniation of the left ventricle endocardial borders. Contrast/Agitated Saline Contrast/Ag. Saline: Definity Amount: 2.00 ml Administered By: Sushila Cardoza RDCS New IV Access: Inner Forearm and Left Site Condition: Site dressing applied, IV removed and No extravasation Summary 1. Left ventricular chamber dimension is normal. 2. Definity contrast administered improved wall motion interpretation. 3. Left ventricular systolic function is normal, estimated at 60-65%. 4. The left ventricular diastolic function is normal. 5. E/e' 8 is minimally elevated. 6. Left atrial chamber dimension is mildly enlarged. 7. There is trace mitral valve regurgitation. 8. There is trace tricuspid valve regurgitation. 9. Mild pulmonary hypertension, estimated pulmonary arterial systolic pressure is 40 mmHg. Left Ventricle Definity contrast administered improved wall motion interpretation. E/e' 8 is minimally elevated. Left ventricular chamber dimension is normal. Left ventricular systolic function is normal, estimated at 60-65%. The left ventricular diastolic function is normal. Right Ventricle Right ventricular systolic function is normal and with normal TAPSE 2.7 cm. Right ventricular chamber dimension is normal. Left Atria Left atrial chamber dimension is mildly enlarged. Right Atria Right atrial chamber dimension is normal. Aortic Valve The aortic valve is trileaflet. There is no aortic valve stenosis. There is no aortic valve regurgitation. Pulmonic Valve There is no pulmonic regurgitation. Mitral Valve There is no mitral valve stenosis. There is trace mitral valve regurgitation. Tricuspid Valve There is trace tricuspid valve regurgitation. Mild pulmonary hypertension, estimated pulmonary arterial systolic pressure is 40 mmHg. Pericardium/Pleural There is no pericardial effusion. Inferior Vena Cava Normal inferior vena cava with >50% collapse upon inspiration consistent with normal right atrial pressure, 5 mmHg. Aorta The aortic root size at the sinus of Valsalva is normal. Left Ventricular Outflow Tract Name Value Normal LVOT 2D LVOT Diameter 2.01 cm LVOT Doppler LVOT Peak Gradient 4 mmHg LVOT Mean Gradient 2 mmHg LVOT VTI 23.23 cm LVOT VTI/AV VTI Ratio 0.94 LVOT Stro
[2022-05-03] MEDS: PERFLUTREN LIPID MICROSPHERES 1.5 ML VIAL DILUTED TO 10 ML TOTAL VOLUME IV PUSH (13:30)
== END 2022-05-03 12:34 | disposition home or self-care (01) ==
PROVIDERS: PCP Family Medicine; Visit Provider Nurse Practitioner Family
DX: D64.9 Anemia, unspecified (principal); I08.3 Combined rheumatic disorders of mitral, aortic and tricuspid valves
CPT/HCPCS: C8929; Q9957

== ENCOUNTER 2022-05-21 11:30 | Outpatient (CLI) | payer OTHER, SELFPAY ==
--- NOTE | ~2022-05-21 | XR_ITS ---
Right foot Technique: AP and lateral views were obtained. Clinical History: Polyarthralgia Findings: No acute fracture or dislocation is seen. Osseous alignment is anatomic. Plantar calcaneal spur noted. Joint spaces are preserved without erosive or degenerative change. Soft tissues are unrem arkable. Impression: Plantar calcaneal spur, otherwise unremarkable exam. Reviewed, dictated and finalized at location . Impression: Plantar calcaneal spur, otherwise unremarkable exam.
--- NOTE | ~2022-05-21 | XR_ITS ---
AP and lateral views of the bilateral hips Clinical history: Polyarthralgia Findings: No acute fracture or dislocation is seen. Osseous alignment is anatomic. Bilateral hip and SI joint spaces are preserved. Soft tissues are unremarkable. IUD noted. Impression: No significant abnormality is seen. Reviewed, dictated and finalized at location . Impression: No significant abnormality is seen.
--- NOTE | ~2022-05-21 | XR_ITS ---
Left foot Technique: AP and lateral views were obtained. Clinical History: Polyarthralgia Findings: No acute fracture or dislocation is seen. Osseous alignment is anatomic. Plantar calcaneal spur present. Joint spaces are preserved without erosive or degenerative change. Soft tissues are unr emarkable. Impression: Plantar calcaneal spur, otherwise unremarkable exam. Reviewed, dictated and finalized at location . Impression: Plantar calcaneal spur, otherwise unremarkable exam.
== END 2022-05-21 11:31 | disposition home or self-care (01) ==
LOC: ANHIMG 11:35
PROVIDERS: PCP Family Medicine; Visit Provider Physician Assistant
DX: R76.8 Other specified abnormal immunological findings in serum (principal); M77.32 Calcaneal spur, left foot; M77.31 Calcaneal spur, right foot
CPT/HCPCS: 73521; 73620

== ENCOUNTER 2022-06-09 09:24 | Emergency (ER) | payer OTHER, SELFPAY ==
--- NOTE | ~2022-06-09 | CT_ITS ---
EXAMINATION: CT orbit BI w con DATE: 06/09/2022 11:17 INDICATION: Right upper eyelid swelling. Right eye pain. TECHNIQUE: Computed tomography (CT) of the orbits was performed with 75 mL Omnipaque 350 intravenous contrast. Automated exposure control and iterative reconstruction technique were employed. The dose-l ength product was 171.90 mGy-cm. COMPARISON: Sinuses CT 01/26/2004 FINDINGS: There is mild right periorbital soft tissue swelling. The orbits are normal. The extraocula r muscles and optic nerves are normal. There is no abnormal orbital mass. There is mild mucosal thick ening in right maxillary sinus. There is rightward deviation of the nasal septum. IMPRESSION: 1. Mild right periorbital soft tissue swelling. No orbital involvement. Reviewed, dictated and finalized at location A.
[2022-06-09 09:28] VITALS: BP 146/103; PULSE 88; RESP 20; TEMP 36.6; O2SAT 97
--- NOTE | 2022-06-09 10:07 | ED.EYEPROB ---
HPI - Eye Problem General Chief complaint: Eye Problems <MIRELLA Roman Last Filed: 06/09/22 17:06> Stated complaint: R. eye swelling <MIRELLA Roman Last Filed: 06/09/22 17:06> Time Seen by Provider: 06/09/22 09:28 <MIRELLA Roman Last Filed: 06/09/22 17:06> Source: patient <MIRELLA Roman Filed: 06/09/22 17:06> Mode of arrival: ambulatory <MIRELLA Roman Filed: 06/09/22 17:06> Limitations: no limitations <MIRELLA Roman Filed: 06/09/22 17:06> History of Present Illness HPI Narrative: Patient is a 41 y/o female who presents to the ED with c/o right eyelid swelling. Patient reports she woke up this morning with mild swelling of her right upper eyelid. She states she did not notice any swelling yesterday, but did have slight pain to her upper orbital bone yesterday. Patient denies any vision loss, blurry vision, double vision, changes in color, but does report her vision seems to dim in/out in that eye and is somewhat more sensitive to light. She also reports mild pain in her right eye with movement. Denies fevers. Denies itching. Denies eye drainage/redness. Denies flashes of light/floaters. Denies new detergents/makeup/lotions/mascara. Denies recent sinus issues/cold sx's. <MIRELLA Roman Last Filed: 06/09/22 17:06> Related Data Home medications: Home Medications Medication Instructions Recorded Confirmed baclofen 20 mg tablet 20 mg PO 08,,02/16/21 04/11/22 duloxetine 60 mg capsule,delayed 60 mg PO DAILY 02/16/21 04/11/22 release erenumab-aooe 140 mg/mL 140 mg subcut MONTHLY 02/16/21 04/11/22 subcutaneous auto-injector (Aimovig Autoinjector) gabapentin 100 mg tablet 100 mg PO ,,02/16/21 04/11/22 gabapentin 800 mg tablet 800 mg PO ,,02/16/21 04/11/22 topiramate 100 mg tablet 100 mg PO HS 02/16/21 04/11/22 topiramate 25 mg tablet 25 mg PO DAILY 02/16/21 04/11/22 duloxetine 30 mg capsule,delayed 30 mg PO DAILY 02/26/22 04/11/22 release (Cymbalta) <Lorena Guillen PA-C - Last Filed: 06/09/22 17:06> Allergies/adverse reactions: Allergies Allergy/AdvReac Type Severity Reaction Status Date / Time carbamazepine AdvReac Mild Itching Verified 06/09/22 09:38 gatifloxacin AdvReac Mild Itching Verified 06/09/22 09:38 hydroxychloroquine AdvReac Mild Itching Verified 06/09/22 09:38 <Lorena Guillen PA-C - Last Filed: 06/09/22 17:06> Review of Systems Review of Systems: CONSTITUTIONAL: Denies fever, chills, or sweats. EYES: See HPI. ENT: Denies rhinorrhea, congestion, sore throat. 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 Hx of gestational diabetes mellitus, not currently Insulin resistance Low vitamin B12 level Metabolic syndrome Migraine Obesity Rheumatoid arthritis Trigeminal neuralgia Vaginal delivery Vitamin D deficiency <Lorena Guillen PA-C - Last Filed: 06/09/22 17:06> Surgical History Surgical History: Surgical History Status post tonsillectomy <Lorena Guillen PA-C - Last Filed: 06/09/22 17:06> Family History Family History: Family History Grandparent Family history of endocrine disorder Family history of malignant neoplasm of breast Family history of coronary artery disease Diabetes mellitus Hypertension Cerebrovascular accident Father
[2022-06-09 10:35] LABS: Basophils Absolute Auto 0.1 K/mm3 (0.0-0.1); Basophils Percent Auto 0.7 % (0.2-1.2); Eosinophils Absolute Auto 0.1 K/mm3 (0-0.3); Eosinophils Percent Auto 1.6 % (0-4.4); Hematocrit 42.7 % (37.0-47.0); Immature Granulocyte Absolute 0.02 K/mm3 (0.00-0.031); Immature Granulocyte Percent A 0.3 % (0-0.5); Lymphocytes Absolute Auto 1.86 K/mm3 (0.9-3.2); Lymphocytes Percent Auto 24.4 % (18.3-44.2); Mean Corpuscular HGB Conc 30.4 g/dl (32-36); Mean Corpuscular Hemoglobin 27.4 pg (26-34); Mean Corpuscular Volume 89.9 fl (80-100); Mean Platelet Volume 10.4 fl (7.4-10.4); Monocytes Absolute Auto 0.4 K/mm3 (0.1-0.6); Monocytes Percent Auto 5.4 % (2.6-8.5); Neutrophils Absolute Auto 5.2 K/mm3 (1.3-6.7); Neutrophils Percent Auto 67.6 % (45.5-73.1); Platelet Count Result 201 k/mm3 (150-375); Red Blood Count 4.75 M/mm3 (4.2-5.4); Red Cell Distribution Width 14.8 % (11.5-14.5); White Blood Count 7.6 K/mm3 (4.5-10.0)
[2022-06-09 10:46] LABS: Anion Gap 6 mmol/L (8-16); Blood Urea Nitrogen 13 mg/dL (7-17); Calcium 8.6 mg/dL (8.4-10.2); Carbon Dioxide 27 mmol/L (22-30); Chloride 108 mmol/L (98-107); Estimated CRCL calculation 124 ml/min; Estimated Glomerular Filt Rate > 60; Glucose 103 mg/dL (65-110); Potassium 4.1 mmol/L (3.4-5.0); Sodium 141 mmol/L (137-145)
[2022-06-09 12:23] VITALS: BP 145/95; PULSE 72; RESP 18; O2SAT 100
[2022-06-09 14:30] VITALS: BP 122/78; PULSE 80; RESP 18; O2SAT 100
== END 2022-06-09 14:33 | disposition home or self-care (01) ==
LOC: ANHED 09:47
PROVIDERS: Emergency Provider Physician Assistant; PCP Family Medicine
DX: R22.0 Localized swelling, mass and lump, head (principal); H57.11 Ocular pain, right eye; H53.9 Unspecified visual disturbance; I10 Essential (primary) hypertension
CPT/HCPCS: 36415; 70481; 80048; 85025; 99284; Q9967

== ENCOUNTER 2022-08-20 08:42 | Outpatient (CLI) | payer OTHER, SELFPAY ==
--- NOTE | 2022-08-20 11:00 | NEURO_ITS ---
Impression: # Complains of pain and numbness in lower extremities, right more than left. # Normal nerve conduction study. # Normal needle/EMG exam. # Clinical correlation recommended, Symptomology could be related to small fiber neuropathy. Nerve Conduction Studies Anti Sensory Summary Table Stim Site NR Peak (ms) P-T Amp (?V) Site1 Site2 Delta-P (ms) Dist (cm) Luis Carlos (m/s) Left Sup Fibular Anti Sensory (Ant Lat Mall) 14 cm 3.5 10.7 14 cm Ant Lat Mall 3.5 16.0 46 Right Sup Fibular Anti Sensory (Ant Lat Mall) 14 cm 3.4 11.4 14 cm Ant Lat Mall 3.4 16.0 47 Left Sural Anti Sensory (Lat Mall) Calf 3.3 17.2 Calf Lat Mall 3.3 16.0 48 Right Sural Anti Sensory (Lat Mall) Calf 3.6 14.9 Calf Lat Mall 3.6 16.0 44 Motor Summary Table Stim Site NR Onset (ms) O-P Amp (mV) Site1 Site2 Delta-0 (ms) Dist (cm) Luis Carlos (m/s) Left Peroneal Motor (Vastus Med) Ankle 3.4 1.7 Popit Ankle 8.1 38.0 47 Popit 11.5 1.3 Right Peroneal Motor (Vastus Med) Ankle 3.0 1.7 Popit Ankle 8.1 37.0 46 Popit 11.1 1.2 Left Tibial Motor (Abd Adamson Brev) Ankle 4.1 3.1 Knee Ankle 8.8 39.0 44 Knee 12.9 1.0 Right Tibial Motor (Abd Adamson Brev) Ankle 4.1 1.9 Knee Ankle 9.5 38.0 40 Knee 13.6 1.2 F Wave Studies NR F-Lat (ms) L-R F-Lat (ms) Left Peroneal (Mrkrs) (EDB) 48.59 0.78 Right Peroneal (Mrkrs) (EDB) 49.38 0.78 Left Tibial (Mrkrs) (Abd Hallucis) 49.50 0.27 Right Tibial (Mrkrs) (Abd Hallucis) 49.77 0.27 EMG Side Muscle Nerve Root Ins Act Fibs Amp Dur Recrt Comment Right AntTibialis Dp Br Fibular L4-5 Nml Nml Nml Nml Nml Right Gastroc Tibial S1-2 Nml Nml Nml Nml Nml Right Fibularis Long Sup Br Fibular L5-S1 Nml Nml Nml Nml Nml Right Flex Dig Long Tibial L5-S2 Nml Nml Nml Nml Nml Right Ext Dig Brev Dp Br Fibular L5, S1 Nml Nml Nml Nml Nml Left AntTibialis Dp Br Fibular L4-5 Nml Nml Nml Nml Nml Left Gastroc Tibial S1-2 Nml Nml Nml Nml Nml Left Fibularis Long Sup Br Fibular L5-S1 Nml Nml Nml Nml Nml Left Flex Dig Long Tibial L5-S2 Nml Nml Nml Nml Nml Left Ext Dig Brev Dp Br Fibular L5, S1 Nml Nml Nml Nml Nml MTDD
== END 2022-08-20 08:43 | disposition home or self-care (01) ==
PROVIDERS: PCP Family Medicine; Visit Provider Nurse Practitioner Family
DX: R20.0 Anesthesia of skin (principal)
CPT/HCPCS: 95886; 95910

== ENCOUNTER 2025-01-05 14:32 | Outpatient (CLI) | payer OTHER, SELFPAY ==
--- NOTE | ~2025-01-05 | XR_ITS ---
EXAMINATION: XR ankle LT 2V, 01/05/2025 14:44 CDT HISTORY: Swelling of L ankle joint COMPARISON: No comparisons available. Findings: No acute fracture or malalignment. No significant degenerative changes. Soft tissues unremarkable. Impression: No acute fracture or malalignment. Reviewed, dictated and finalized at location P. Impression: No acute fracture or malalignment.
== END 2025-01-05 14:33 | disposition home or self-care (01) ==
LOC: MICIMG 14:35
PROVIDERS: PCP Family Medicine; Visit Provider Nurse Practitioner
DX: M25.472 Effusion, left ankle (principal)
CPT/HCPCS: 73600